=== PATIENT | male | born 1960 | race Caucasian/White ===

== ENCOUNTER 2022-06-16 14:50 | Emergency (ER) | payer OTHER ==
[2022-06-16] MEDS ORDERED: METOCLOPRAMIDE 10 MG/2mL INJ ONE (15:53)
[2022-06-16] MEDS ORDERED: NA CHLORIDE 0.9% 250 ML ONE (15:54)
[2022-06-16] MEDS ORDERED: DIPHENHYDRAMINE 50 MG/ML VIAL ONE (15:54)
[2022-06-16 16:05] LABS: Absolute Lymphocytes (CBC) 0.9 K/uL (0.7-4.9); Hematocrit 34.3 % (39.6-49.0); Lymphocytes % 19.2 % (15.3-44.8); MCV 94.2 fL (80-100); MPV 7.4 fL (7.6-11.3); RBC Red Blood Cell Count 3.65 M/uL (4.33-5.43)
[2022-06-16 16:29] LABS: Protime INR 1.15
[2022-06-16 16:45] LABS: Magnesium 2.2 mg/dL (1.8-2.4); Potassium 5.1 mmol/L (3.5-5.1); Troponin High Sensitivity 40.2 pg/mL (<58.9)
--- NOTE | 2022-06-16 16:46 | RAD REPORT ---
EXAM DESCRIPTION: CT - Head Brain Wo Cont - 06/16/2022 4:22 pm CLINICAL HISTORY: Headache, new or worsening COMPARISON: HEAD BRAIN W O CONTRAST dated 10/21/2013 TECHNIQUE: Axial 5 mm thick images of the head were obtained without IV contrast. All CT scans are performed using dose optimization technique as appropriate and may include automated exposure control or mA/KV adjustment according to patient size. FINDINGS: No intracranial hemorrhage, mass, edema or shift of mid-line structures. No acute infarcti on changes seen. No abnormal extra-axial fluid collections. Ventricles are normal. Intracranial findi ngs are similar to the 2013 comparison. Mastoid air cells and visualized portions of the paranasal sinuses are clear. No acute bony findings. IMPRESSION: Negative non-contrast CT head examination.
--- NOTE | 2022-06-16 17:22 | RAD REPORT ---
EXAM DESCRIPTION: RAD - Chest Single View - 06/16/2022 4:35 pm CLINICAL HISTORY: CHEST PAIN COMPARISON: None TECHNIQUE: AP portable chest image was obtained 06/16/2022 4:35 pm . FINDINGS: Lungs are clear. Heart and vasculature are normal. No measurable pleural effusion and no p neumothorax. No acute bony abnormality seen. No acute aortic findings suspected. IMPRESSION: No acute cardiopulmonary process.
--- NOTE | 2022-06-16 19:40 | ER ---
Nurse's Notes [facility] Name: Marcello Mcrae Jr Age: 61 yrs Sex: Male : 1960 Arrival Date: 06/16/2022 Time: 14:57 Bed 16 Private MD: Diagnosis: Chest pain, unspecified;Headache;End stage renal disease;Essential (primary) hypertension;Anemia in chronic kidney disease Presentation: 06/16 14:55 Chief complaint: EMS states: Patient called c/o chest pain bout 30 min prior to our jg9 arrival, he reported pain in his chest that radiates down his left arm and he is a dialysis patient (peritoneal). That was about all we could get from him initially, 12 lead showed cardiomegaly otherwise it was not remarkable, we gave 324 mg of aspirin, nitro 0.4 mg x 3, and 100 fentanyl and patient reported no change in his pain. Upon arriving here at the hospital patient reports that he has anxiety, his left him yesterday and this is around the time of year when his Mom and Dad passed. Coronavirus screen: Vaccine status: Patient reports receiving the 2nd dose of the covid vaccine. Ebola Screen: Patient negative for fever greater than or equal to 101.5 degrees Fahrenheit, and additional compatible Ebola Virus Disease symptoms Patient denies exposure to infectious person. Patient denies travel to an Ebola-affected area in the 21 days before illness onset. Initial Sepsis Screen: Does the patient meet any 2 criteria? No. Patient's initial sepsis screen is negative. Does the patient have a suspected source of infection? No. Patient's initial sepsis screen is negative. Risk Assessment: Do you want to hurt yourself or someone else? Patient reports no desire to harm self or others. Onset of symptoms is unknown. 14:55 Method Of Arrival: EMS: [facility] jg9 14:55 Acuity: RITO 3 jg9 Triage Assessment: 14:55 General: Appears in no apparent distress. Behavior is calm, cooperative. Pain: jg9 Complains of pain in chest Pain radiates to left arm Pain currently is 9 out of 10 on a pain scale. Historical: - Allergies: 15:13 No Known Allergies; jg9 - PMHx: 15:13 Anxiety; Hypertensive disorder; jg9 - Immunization history:: Adult Immunizations up to date. - Social history:: Smoking status: Patient reports the use of cigarette tobacco products, smokes one pack cigarettes per day. Screenin:14 Abuse screen: Denies threats or abuse. Denies injuries from another. Nutritional jg9 screening: No deficits noted. Tuberculosis screening: No symptoms or risk factors identified. Fall Risk None identified. Assessment: 15:00 Reassessment: Patient and/or family updated on plan of care and expected duration. Pain jg9 level reassessed. Patient is alert, oriented x 3, equal unlabored respirations, skin warm/dry/pink. 16:00 Reassessment: Patient and/or family updated on plan of care and expected duration. Pain jg9 level reassessed. 18:00 Reassessment: Patient and/or family updated on plan of care and expected duration. Pain jg9 level reassessed. Patient is alert, oriented x 3, equal unlabored respirations, skin warm/dry/pink. 19:00 Reassessment: Patient and/or family updated on plan of care and expected duration. Pain jg9 level reassessed. Patient states feeling better. Patient states symptoms have improved. Vital Signs: 14:55 BP 177 / 92; Pulse 72; Resp 13 S; Temp 98.8(O); Pulse Ox 100% on R/A; Weight 82.1 kg jg9 (R); Height 5 ft. 9 in. (175.26 cm) (R); Pain 9/10; 15:00 BP 179 / 97; Pulse 70; Resp 14 S; Pulse Ox 100% on R/A; Pain 7/10; jg9 16:00 BP 171 / 100; Pulse 71; Resp 11 S; Pulse Ox 100% on R/A; jg9 17:00 BP 172 / 108; Pulse 75; Resp 19 S; Pulse Ox 100% on R/A; Pain 2/10; jg9 18:09 BP 176 / 97; Pulse 68; Resp 10 S; Pulse Ox 98% on R/A; jg9 19:45 BP 184 / 97; Pulse 68; Resp 12; Pulse Ox 99% ; ja4 14:55 Body Mass Index 26.73 (82.10 kg, 175.26 cm) jg9 ED Course: 14:57 Patient arrived in ED. jd3 14:59 Dexter Jimenez DO is Attending Physician. ms3 15:03 Sonal Root, RN is Primary Nurse. jg9 15:03 Maintain EMS IV. Gauge \T\ site: 18 r ac. jg9 15:09 Triage completed. jg9 15:14 Patient has correct armband on for positive identification. Bed in low position. Call jg9 light in reach. 15:14 Arm band placed on left wrist. jg9 16:24 CT Head Brain wo Cont In Process Unspecified. EDMS 16:37 XRAY Chest (1 view) In Process Unspecified. EDMS 18:59 Attending Physician role handed off by Dexter Jimenez DO rn 18:59 Ab Osborne MD is Attending Physician. rn 20:05 IV discontinued, intact, bleeding controlled, No redness/swelling at site. Pressure ja4 dressing applied. Administered Medications: 15:52 Drug: Reglan (metoCLOPramide) 10 mg Route: IVP; Site: right antecubital; jg9 17:20 Follow up: Response: No adverse reaction jg9 15:52 Drug: Benadryl (diphenhydrAMINE) 25 mg Route: IVP; Site: right antecubital; jg9 17:20 Follow up: Response: No adverse reaction jg9 Outcome: 19:39 Discharge ordered by . rn 20:05 Discharged to home ambulatory. ja4 20:05 Condition: stable 20:05 Discharge instructions given to patient, Instructed on discharge instructions, follow up and referral plans. medication usage. 20:06 Patient left the ED. ja4 Signatures: Dispatcher [employer] EDMS Ab Osborne MD MD rn Davies, Jonathon, RN RN jd3 Dexter Jimenez DO DO ms3 Sonal Root, RN RN jg9 Myke Norton RN RN ja4 Corrections: (The following items were deleted from the chart) 17:26 17:00 BP 172 / 108; Pulse 75bpm; Resp 19bpm; Spontaneous; Pulse Ox 100% RA; jg9 jg9
--- NOTE | 2022-06-16 19:40 | EDPHYS ---
Physician Documentation [facility] Name: Marcello Mcrae Jr Age: 61 yrs Sex: Male : 1960 Arrival Date: 06/16/2022 Time: 14:57 Bed 16 Private MD: ED Physician Ab Osborne HPI: 06/16 15:44 This 61 yrs old Male presents to ER via EMS with complaints of Chest Pain/headache. ms3 15:44 61-year-old male with past medical history of hypertension, anxiety, end-stage renal ms3 diseaseon peritoneal dialysis presents for headache and chest pain that began 1 and half hours prior to arrival. Patient states his headache is rated 9/10 and his chest pain is a 6/10 described as pressure. Patient denies alleviating or inciting factors. Patient endorses nausea and shortness of breath. Patient denies vomiting. Patient denies alleviating or inciting factors.. Historical: - Allergies: 15:13 No Known Allergies; jg9 - PMHx: 15:13 Anxiety; Hypertensive disorder; jg9 - Immunization history:: Adult Immunizations up to date. - Social history:: Smoking status: Patient reports the use of cigarette tobacco products, smokes one pack cigarettes per day. ROS: 15:44 Constitutional: Negative for fever, and chills. Neck: Negative for injury, pain, and ms3 swelling. 15:44 MS/Extremity: Negative for injury and deformity, Skin: Negative for injury, rash, and discoloration. 15:44 Cardiovascular: Positive for chest pain. 15:44 Respiratory: Positive for shortness of breath. 15:44 Neuro: Positive for headache. 15:44 All other systems are negative. Exam: 15:08 ECG was reviewed by the Attending Physician. ms3 15:44 Constitutional: This is a well developed, well nourished patient who is awake, alert, ms3 and in no acute distress. Eyes: Pupils equal round and reactive to light, extra-ocular motions intact. Lids and lashes normal. Conjunctiva and sclera are non-icteric and not injected. Periorbital areas with no swelling, redness, or edema. Neck: Trachea midline, no cervical lymphadenopathy. Supple, full range of motion without nuchal rigidity, or vertebral point tenderness. No Meningismus. Chest/axilla: Normal chest wall appearance and motion. Nontender with no deformity. 15:44 Skin: Warm, dry with normal turgor. Normal color with no rashes, no lesions, and no evidence of cellulitis. MS/ Extremity: Pulses equal, no cyanosis. Neurovascular intact. Full, normal range of motion. Psych: Awake, alert, with orientation to person, place and time. Behavior, mood, and affect are within normal limits. 15:44 Cardiovascular: Rate: normal, Rhythm: regular, Pulses: no pulse deficits are appreciated, Heart sounds: murmur, systolic. 16:25 ECG was reviewed by the Attending Physician. ms3 Vital Signs: 14:55 BP 177 / 92; Pulse 72; Resp 13 S; Temp 98.8(O); Pulse Ox 100% on R/A; Weight 82.1 kg j9 (R); Height 5 ft. 9 in. (175.26 cm) (R); Pain 9/10; 15:00 BP 179 / 97; Pulse 70; Resp 14 S; Pulse Ox 100% on R/A; Pain 7/10; jg9 16:00 BP 171 / 100; Pulse 71; Resp 11 S; Pulse Ox 100% on R/A; jg9 17:00 BP 172 / 108; Pulse 75; Resp 19 S; Pulse Ox 100% on R/A; Pain 2/10; jg9 18:09 BP 176 / 97; Pulse 68; Resp 10 S; Pulse Ox 98% on R/A; jg9 19:45 BP 184 / 97; Pulse 68; Resp 12; Pulse Ox 99% ; ja4 14:55 Body Mass Index 26.73 (82.10 kg, 175.26 cm) 9 MDM: 15:38 Patient medically screened. ms3 15:44 Differential diagnosis: abnormal EKG, acute myocardial infarction, congestive heart ms3 failure. 17:57 HEART Score: History: Slightly Suspicious (0), ECG: Normal (0), Age: > 45 and < 65 ms3 years (1), Risk Factors: 1 or 2 risk factors (1), Troponin: < or = 1 x Normal Limit (0), Total Score = 2. Data reviewed: vital signs, nurses notes, lab test result(s), EKG, radiologic studies. Data interpreted: environmental monitoring technician: rate is 65 beats/min, rhythm is normal sinus rhythm, regular, with no ectopy, Interpretation: normal rate, normal rhythm. 19:37 ED course: Signed out to me by Dr Jimenez, plan was to dc home if repeat trop neg, which rn it is. Will dc home with return precautions. . 06/16 15:40 Order name: Basic Metabolic Panel; Complete Time: 17:10 ms3 06/16 15:40 Order name: CBC with Diff; Complete Time: 16:48 ms3 06/16 15:40 Order name: Magnesium; Complete Time: 17:10 ms3 06/16 15:40 Order name: NT PRO-BNP; Complete Time: 17:10 ms3 06/16 15:40 Order name: PT-INR; Complete Time: 16:48 ms3 06/16 15:40 Order name: Troponin HS; Complete Time: 17:10 ms3 06/16 15:40 Order name: XRAY Chest (1 view); Complete Time: 17:39 ms3 06/16 15:40 Order name: EKG; Complete Time: 15:41 ms3 06/16 15:40 Order name: Cardiac monitoring; Complete Time: 15:42 ms3 06/16 15:40 Order name: CT Head Brain wo Cont; Complete Time: 16:48 ms3 06/16 17:11 Order name: Troponin High Sensitivity: obtain at 1900; Complete Time: 19:37 ms3 06/16 15:40 Order name: EKG - Nurse/Tech; Complete Time: 15:42 ms3 06/16 15:40 Order name: IV Saline Lock; Complete Time: 15:42 ms3 06/16 15:40 Order name: Labs collected and sent; Complete Time: 17:20 ms3 06/16 15:40 Order name: O2 Sat Monitoring; Complete Time: 15:42 ms3 06/16 17:11 Order name: Repeat Cardiac Enzymes at: 1900 ms3 EC:08 Rate is 70 beats/min. Rhythm is regular. QRS [place] is Normal. TX interval is normal. ms3 Clinical impression: Normal ECG. Interpreted by me. Reviewed by me. 16:25 Rate is 66 beats/min. Rhythm is regular. QRS [place]rick is Normal. [place] interval is normal. QRS ms3 interval is normal. Clinical impression: Normal ECG. No change from previous ECG on June 16, 2022. Interpreted by me. Reviewed by me. Administered Medications: 15:52 Drug: Reglan (metoCLOPramide) 10 mg Route: IVP; Site: right antecubital; jg9 17:20 Follow up: Response: No adverse reaction jg9 15:52 Drug: Benadryl (diphenhydrAMINE) 25 mg Route: IVP; Site: right antecubital; jg9 17:20 Follow up: Response: No adverse reaction jg9 Disposition Summary: 06/16/22 19:39 Discharge Ordered Location: Home rn Problem: new rn Symptoms: are unchanged rn Condition: Stable rn Diagnosis - Chest pain, unspecified rn - Headache rn - End stage renal disease rn - Essential (primary) hypertension rn - Anemia in chronic kidney disease rn Followup: ms3 - With: Private Physician - When: 2 - 3 days - Reason: Recheck today's complaints, Re-evaluation by your physician Discharge Instructions: - Discharge Summary Sheet ms3 - Nonspecific Chest Pain, Adult ms3 - General Headache Without Cause ms3 - Hypertension, Adult ms3 Forms: - Medication Reconciliation Form rn - Thank You Letter rn - Antibiotic fern cutter - Prescription Opioid Use rn Signatures: Dispatcher [employer] EDMS Ab Osborne MD MD rn Sims, Marcus, DO DO ms3 Sonal Root RN RN jg9 Corrections: (The following items were deleted from the chart) 18:21 18:12 SARS-COV-2 Antigen Rapid+I.LAB.BRZ ordered. EDMS EDMS
[2022-06-16 22:10] VITALS: TEMP 98.8
[2022-06-16 22:39] VITALS: BP 184/97; O2SAT 99
--- NOTE | 2022-06-17 13:56 | EKG ---
Test Date: 2022-06-16 Test Time: 15:08:04 Snuff Box Finisher: JAMEY MEASUREMENT RESULTS: Intervals: Rate: 70 WV: 152 QRSD: 94 QT: 402 QTc: 434 [place]: P: 53 WV: 152 QRS: -16 T: 36 INTERPRETIVE STATEMENTS: Normal sinus rhythm Left atrial enlargement Borderline ECG Compared to ECG 10/21/2013 09:41:07 Sinus tachycardia no longer present Electronically Signed On 06-17-22 13:55:27 CDT by Peter Grover
--- NOTE | 2022-06-17 13:56 | EKG ---
Test Date: 2022-06-16 Test Time: 16:25:32 Primary Special Educator: JAMEY MEASUREMENT RESULTS: Intervals: Rate: 66 ME: 154 QRSD: 98 QT: 422 QTc: 442 [place]: P: 57 ME: 154 QRS: 15 T: 31 INTERPRETIVE STATEMENTS: Normal sinus rhythm Possible Left atrial enlargement Left ventricular hypertrophy Abnormal ECG Compared to ECG 06/16/2022 15:08:04 Left ventricular hypertrophy now present Electronically Signed On 06-17-22 13:55:21 CDT by Peter Grover
== END 2022-06-16 20:06 | disposition home or self-care (01) ==
LOC: ER 14:50
DX: R07.9 Chest pain, unspecified (principal); R51.9 Headache, unspecified; I12.0 Hypertensive chronic kidney disease with stage 5 chronic kidney disease or end stage renal disease; N18.6 End stage renal disease; D63.1 Anemia in chronic kidney disease; F17.210 Nicotine dependence, cigarettes, uncomplicated
CPT/HCPCS: 93005 ×2; 85025; 80048; 36415; 83735; 85610; 84484 ×2; 83880; 70450; 71045; 96375; 96374; 99284; J2765; J1200; J7050

== ENCOUNTER 2023-02-28 18:45 | Emergency (ER) | payer OTHER ==
[2023-02-28] MEDS ORDERED: HYDROMORPHONE HCL 1 MG/ML INJ ONE ×2 (19:02→21:32)
[2023-02-28] MEDS ORDERED: ONDANSETRON 4 MG/2 ML VIAL ONE ×2 (19:02→21:32)
[2023-02-28 19:06] LABS: Hematocrit 27.1 % (39.6-49.0); Lymphocytes % 9.8 % (15.3-44.8); MCV 90.9 fL (80-100); MPV 6.8 fL (7.6-11.3); RBC Red Blood Cell Count 2.98 M/uL (4.33-5.43)
[2023-02-28] MEDS ORDERED: NICOTINE 21 MG/PAT TD ONE (19:30)
[2023-02-28 19:38] LABS: Protime INR 1.15
[2023-02-28 19:41] LABS: Albumin 2.4 g/dL (3.4-5.0); Bilirubin Direct 0.1 mg/dL (0-0.2); Bilirubin Indirect, Calculated 0.3 mg/dL (0.2-0.8); Bilirubin Total 0.4 mg/dL (0.2-1.0); Potassium 4.6 mEq/L (3.5-5.1); Protein, Total 5.8 g/dL (6.4-8.2); Troponin High Sensitivity 50.5 pg/mL (<58.9)
--- NOTE | 2023-02-28 20:04 | RAD REPORT ---
[facility]15 [facility] CLINICAL HISTORY: CHEST PAIN COMPARISON: Chest Single View dated 06/16/2022 TECHNIQUE: Portable AP view of the chest. FINDINGS: New left basilar airspace opacity with layering small to moderate effusion. No pneumothora x or effusion. The cardiomediastinal contours are unremarkable. IMPRESSION: New left basilar airspace opacity with suspected small to moderate effusion.
--- NOTE | 2023-02-28 22:01 | RAD REPORT ---
EXAM DESCRIPTION: CT - Thorax Wo Con - 02/28/2023 9:21 pm CLINICAL HISTORY: CHEST PAIN COMPARISON: Chest Single View dated 02/28/2023 TECHNIQUE: Axial thin cut images of the chest were obtained without IV contrast. Multiplanar reforma ts were generated and reviewed. All CT scans are performed using dose optimization technique as appropriate and may include automated exposure control or mA/KV adjustment according to patient size. FINDINGS: No mass or infiltrate in the lung parenchyma. Small volume layering left pleural effusion with underlying atelectasis. No pneumothorax. Moderate cardiomegaly. Mild pericardial effusion. Ectasia of the ascending thoracic aorta, measuring 4.3 centimeter in caliber. No hypoattenuating mural hematoma. No abnormal mediastinal or hilar masses or lymphadenopathy seen. No significant pulmonary artery find ings. Assessment is limited in the absence of IV contrast. No chest wall mass or abnormal axillary lymphadenopathy. Evaluation of the solid abdominal structures reveals no suspicious findings. IMPRESSION: Small volume layering pleural effusion, with underlying atelectasis. Moderate cardiomegaly. Mild pericardial effusion. Mild aneurysmal dilation of the ascending thoracic aorta, measuring 4.3 centimeter in caliber.
[2023-02-28] MEDS ORDERED: Meropenem 1000 MG/VIAL IV ONE (22:05)
[2023-02-28] MEDS ORDERED: NA CHLORIDE 0.9% 100 ML ONE (22:05)
[2023-02-28 22:21] LABS: Specific Gravity 1.011 (1.005-1.030); Urine Bacteria <20 /HPF (<20); Urine Bilirubin NEGATIVE (Negative); Urine Blood Trace (Negative); Urine Clarity Clear (Clear); Urine Color Light-Yellow (Yellow); Urine Glucose 2+ (Negative); Urine Protein 1+ (Negative); Urine RBC <5 /HPF (None Seen); Urine Urobilinogen Normal (Normal)
--- NOTE | 2023-02-28 22:25 | ER ---
Nurse's Notes [facility] Name: Marcello Mcrae Jr Age: 62 yrs Sex: Male : 1960 Arrival Date: 02/28/2023 Time: 18:45 Bed 15 Private MD: Diagnosis: Pleural effusion, not elsewhere classified;Left pleural effusion, noncardiac chest pain, pleurisy. Dysuria. End-stage renal disease on peritoneal dialysis Presentation: 02/28 18:46 Chief complaint: Patient states: had heart surgery a week ago , had a iw pericardiocentesis at [facility] . c/o chest pain X 2 days, also has pain when he urinates. 18:47 Coronavirus screen: At this time, the client does not indicate any symptoms associated iw with coronavirus-19. Ebola Screen: Patient negative for fever greater than or equal to 101.5 degrees Fahrenheit, and additional compatible Ebola Virus Disease symptoms Patient denies exposure to infectious person. Patient denies travel to an Ebola-affected area in the 21 days before illness onset. No symptoms or risks identified at this time. Risk Assessment: Do you want to hurt yourself or someone else? Patient reports no desire to harm self or others. 18:47 Acuity: RITO 2 iw 18:47 Method Of Arrival: Wheelchair iw 18:51 Initial Sepsis Screen: Does the patient meet any 2 criteria? No. Patient's initial iw sepsis screen is negative. Does the patient have a suspected source of infection? No. Patient's initial sepsis screen is negative. Onset of symptoms was February 26, 2023. Historical: - Allergies: 19:02 Codeine; ld1 - PMHx: 18:52 Anxiety; Hypertensive disorder; iw - Immunization history:: Adult Immunizations up to date. - Social history:: Smoking status: Patient denies any tobacco usage or history of. Patient/guardian denies using alcohol. Screenin:00 [facility] ED Fall Risk Assessment (Adult) History of falling in the last 3 months, ld1 including since admission No falls in past 3 months (0 pts). Abuse screen: Denies threats or abuse. Denies injuries from another. Nutritional screening: No deficits noted. Tuberculosis screening: No symptoms or risk factors identified. Assessment: 19:00 General: Appears in no apparent distress. uncomfortable, Behavior is anxious, crying, ld1 fussy. Pain: Complains of pain in chest Pain does not radiate. Pain currently is 9 out of 10 on a pain scale. Quality of pain is described as heavy, pressure, throbbing, Pain began 30 min ago. Neuro: Level of Consciousness is awake, alert, obeys commands, Oriented to person, place, time, situation. Cardiovascular: Capillary refill < 3 seconds Patient's skin is warm and dry. Rhythm is sinus rhythm. Respiratory: Airway is patent Respiratory effort is even, labored. GI: Abdomen is round distended, Catheter to ABD for peritoneal dialysis. : No signs and/or symptoms were reported regarding the genitourinary system. EENT: No signs and/or symptoms were reported regarding the EENT system. Derm: No signs and/or symptoms reported regarding the dermatologic system. Musculoskeletal: No signs and/or symptoms reported regarding the musculoskeletal system. 21:15 Reassessment: pt complaining of chest pain that is 8/10. ERP notified. New orders at [facility] this time. 21:35 Neuro: Level of Consciousness is awake, alert, obeys commands, Oriented to person, mb9 place, time, situation. Cardiovascular: Rhythm is regular. Respiratory: Airway is patent Respiratory effort is even, unlabored, Respiratory pattern is regular, symmetrical. 22:30 Reassessment: Patient and/or family updated on plan of care and expected duration. Pain mb9 level reassessed. Patient is alert, oriented x 3, equal unlabored respirations, skin warm/dry/pink. Patient states feeling better. Patient states symptoms have improved. 23:21 Reassessment: ERP notified of pts BP, 189/106. New orders at this time. mb9 03/01 00:12 Reassessment: Report given to transferring nurse NIDA Burnette. mb9 00:17 Reassessment: Assumed care of pt from NIDA Wu until pt is transferred. vc1 00:20 Reassessment: Patient and/or family updated on plan of care and expected duration. Pain vc1 level reassessed. Patient is alert, oriented x 3, equal unlabored respirations, skin warm/dry/pink. 00:35 Reassessment: pt ambulated to bathroom. vc1 00:45 Reassessment: Pt request pain medication before transfer. vc1 Vital Signs: 05/23 18:51 Temp 99.3(O); iw 19:00 BP 177 / 150; Pulse 92; Resp 28; Pulse Ox 99% on R/A; ld1 19:27 BP 140 / 83; Pulse 92; Resp 18; Pulse Ox 96% on R/A; mb9 19:29 Weight 78.47 kg; Height 5 ft. 99 in. ; mb9 21:35 BP 152 / 80; Pulse 89; Resp 18; Pulse Ox 98% on R/A; mb9 22:45 BP 174 / 88; Pulse 78; Resp 16; Pulse Ox 98% on R/A; mb9 23:21 BP 189 / 106; Pulse 85; Resp 20; Pulse Ox 100% ; mb9 23:45 BP 181 / 97; Pulse 89; Resp 16; Pulse Ox 100% on R/A; mb9 23:58 BP 169 / 92; Pulse 86; Resp 16; Pulse Ox 100% on R/A; mb9 19:29 Body Mass Index 4.81 (78.47 kg, 403.86 cm) 9 ED Course: 18:46 Patient arrived in ED. mr 18:47 Triage completed. iw 18:47 Laurie Jimenez, RN is Primary Nurse. ld1 18:48 Nico Reilly MD is Attending Physician. sp3 18:52 Arm band placed on. iw 19:00 Patient has correct armband on for positive identification. Placed in gown. Bed in low ld1 position. Call light in reach. Side rails up X2. nurse monitoring on. Pulse ox on. NIBP on. Door closed. Noise minimized. Warm blanket given. 19:00 No provider procedures requiring assistance completed. Patient maintains SpO2 ld1 saturation greater than 95% on room air. 19:01 EKG done, by ED staff, reviewed by Nico Reilly MD. Inserted saline lock: 20 gauge in mb9 right forearm, using aseptic technique. 19:05 Primary Nurse role handed off by Laurie Jimenez RN mb9 19:05 Venecia Pennington RN is Primary Nurse. mb9 19:17 XRAY Chest (1 view) In Process Unspecified. EDMS 20:29 Attending Physician role handed off by Nico Reilly MD sp4 20:29 Ean Vila MD is Attending Physician. sp4 21:21 Thorax Wo Con In Process Unspecified. EDMS 22:08 Urinalysis W/Microscopic Sent. mb9 23:22 SARS RAPID Sent. mb9 03/01 00:12 Patient transferred, IV remains in place. mb9 Administered Medications: 02/28 18:59 Drug: HYDROmorphone IVP 1 mg Route: IVP; Site: right forearm; ld1 19:04 Follow up: Response: No adverse reaction mb9 19:00 Drug: Ondansetron IVP 4 mg Route: IVP; Site: right forearm; ld1 19:04 Follow up: Response: No adverse reaction mb9 19:27 Drug: Nicotine Transdermal Patch 21 mg/24 hr 1 patches {Note: right upper arm.} Route: mb9 Transdermal; Site: affected area; 21:30 Drug: Ondansetron IVP 4 mg Route: IVP; Site: right forearm; mb9 23:22 Follow up: Response: No adverse reaction mb9 21:33 Drug: HYDROmorphone IVP 1 mg Route: IVP; Site: right forearm; mb9 23:22 Follow up: Response: No adverse reaction mb9 22:08 Drug: Meropenem IV 1 grams Route: IV; Rate: calculated rate; Site: right forearm; mb9 23:22 Follow up: Response: No adverse reaction; IV Status: Completed infusion mb9 23:22 Drug: hydrALAZINE IVP 10 mg Route: IVP; Site: right forearm; mb9 23:33 Follow up: Response: No adverse reaction mb9 23:22 Drug: Metoprolol PO 50 mg Route: PO; mb9 23:33 Follow up: Response: No adverse reaction mb9 03/01 00:49 Drug: HYDROmorphone IVP 0.5 mg Route: IVP; Site: right antecubital; vc1 00:49 Follow up: Response: administered at transfer vc1 Medication: 02/28 19:00 VIS not applicable for this client. ld1 Outcome: 22:25 ER care complete, transfer ordered by MD. osorio 03/01 00:12 Transferred to [facility], Transfer form completed. mb9 Condition: stable Instructed on the need for transfer. 00:56 Patient left the ED. vc1 Signatures: Dispatcher [employer] Venecia Shetty Irene, RN Laurie Rowan, RN RN ld1 Nico Reilly MD MD sp3 Charlette Thompson, RN RN vc1 Gorge, Venecia Deshpande, RN RN mb9 Ean Vila MD MD sp4 Corrections: (The following items were deleted from the chart) 02/28 18:52 18:46 Chief complaint: Patient states: had heart surgery a week ago , had a iw pericardiocentesis at [facility]
--- NOTE | 2023-02-28 22:26 | EDPHYS ---
Physician Documentation [facility] Name: Marcello Mcrae Jr Age: 62 yrs Sex: Male : 1960 Arrival Date: 02/28/2023 Time: 18:45 Bed 15 Private MD: ED Physician Ean Vila HPI: 02/28 19:04 This 62 yrs old Male presents to ER via Wheelchair with complaints of Chest Pain. sp3 19:04 This 62 yrs old Male presents to ER via Wheelchair with complaints of Chest Pain. sp3 19:04 63-year-old male with history of hypertension, end-stage renal disease on peritoneal sp3 dialysis and anxiety with recent discharge from [facility] for a chest tube on the left lung to drain "fluid" and patient also states that he had a pericardial effusion that was drained with a needle. He was discharged and went home on Monday approximately 4 days ago and over the last 2 days he has had recurrent chest pain which today escalated to his entire chest extending into his back. Denies any pain into his jaw or left arm. Denies any syncope, shortness of breath, abdominal pain, nausea, vomiting, diarrhea, fever, cough, or any other signs or symptoms on review of systems at this time. He does not wish to seek any continuing care at [facility].. Historical: - Allergies: 19:02 Codeine; ld1 - PMHx: 18:52 Anxiety; Hypertensive disorder; iw - Immunization history:: Adult Immunizations up to date. - Social history:: Smoking status: Patient denies any tobacco usage or history of. Patient/guardian denies using alcohol. ROS: 19:08 Constitutional: Negative for fever, chills, and weight loss, Eyes: Negative for injury, sp3 pain, redness, and discharge, Neck: Negative for injury, pain, and swelling, Respiratory: Negative for shortness of breath, cough, wheezing, and pleuritic chest pain, Abdomen/GI: Negative for abdominal pain, nausea, vomiting, diarrhea, and constipation, Back: Negative for injury and pain, MS/Extremity: Negative for injury and deformity, Skin: Negative for injury, rash, and discoloration, Neuro: Negative for headache, weakness, numbness, tingling, and seizure, Psych: Negative for depression, anxiety, suicide ideation, homicidal ideation, and hallucinations, Allergy/Immunology: Negative for hives, rash, and allergies, Endocrine: Negative for neck swelling, polydipsia, polyuria, polyphagia, and marked weight changes, Hematologic/Lymphatic: Negative for swollen nodes, abnormal bleeding, and unusual bruising. 19:08 All other systems are negative. Exam: 19:09 Constitutional: This is a well developed, well nourished patient who is awake, alert, sp3 and in no acute distress. Head/Face: Normocephalic, atraumatic. Eyes: Pupils equal round and reactive to light, extra-ocular motions intact. Lids and lashes normal. Conjunctiva and sclera are non-icteric and not injected. Cornea within normal limits. Periorbital areas with no swelling, redness, or edema. ENT: Nares patent. No nasal discharge, no septal abnormalities noted. External auditory canals are clear. Oropharynx with no redness, swelling, or masses, exudates, or evidence of obstruction, uvula midline. Mucous membranes moist. Neck: Trachea midline, no thyromegaly or masses palpated, and no cervical lymphadenopathy. Supple, full range of motion without nuchal rigidity, or vertebral point tenderness. No Meningismus. Chest/axilla: Normal chest wall appearance and motion. Nontender with no deformity. No lesions are appreciated. Cardiovascular: Regular rate and rhythm with a normal S1 and S2. No gallops, murmurs, or rubs. Normal PMI, no JVD. No pulse deficits. Respiratory: Lungs have equal breath sounds bilaterally, clear to auscultation and percussion. No rales, rhonchi or wheezes noted. No increased work of breathing, no retractions or nasal flaring. Abdomen/GI: Soft, non-tender, with normal bowel sounds. No distension or tympany. No guarding or rebound. No evidence of tenderness throughout. Skin: Warm, dry with normal turgor. Normal color with no rashes, no lesions, and no evidence of cellulitis. 19:09 Chest/axilla: Left midclavicular line shows prior chest tube site with sutures in place.. 19:09 Abdomen/GI: Peritoneal dialysis drain in place without signs of infection.. 19:12 ECG was reviewed by the Attending Physician. See ED course and MDM for EKG sp3 interpretation 20:29 Repeat EKG at 200202/28/2023 reveals normal sinus rhythm with a rate of 86, left sp4 atrial enlargement, no ST elevation, inverted T waves leads V5 V6 inverted T waves in leads II, III, aVF no sign of STEMI Vital Signs: 18:51 Temp 99.3(O); iw 19:00 BP 177 / 150; Pulse 92; Resp 28; Pulse Ox 99% on R/A; ld1 19:27 BP 140 / 83; Pulse 92; Resp 18; Pulse Ox 96% on R/A; mb9 19:29 Weight 78.47 kg; Height 5 ft. 99 in. ; mb9 21:35 BP 152 / 80; Pulse 89; Resp 18; Pulse Ox 98% on R/A; mb9 22:45 BP 174 / 88; Pulse 78; Resp 16; Pulse Ox 98% on R/A; mb9 23:21 BP 189 / 106; Pulse 85; Resp 20; Pulse Ox 100% ; mb9 23:45 BP 181 / 97; Pulse 89; Resp 16; Pulse Ox 100% on R/A; mb9 23:58 BP 169 / 92; Pulse 86; Resp 16; Pulse Ox 100% on R/A; mb9 19:29 Body Mass Index 4.81 (78.47 kg, 403.86 cm) mb9 MDM: 18:56 Patient medically screened. sp3 19:09 Data reviewed: vital signs, nurses notes, old medical records, lab test result(s), EKG, sp3 radiologic studies. ED course: 62-year-old male with extensive cardiac history and recent pericardial effusion and left pleural effusion presents for recurrent chest pain. Chest x-ray demonstrates small left pleural effusion and no pneumothorax. Cardiac silhouette is enlarged. EKG demonstrates normal sinus rhythm with normal intervals rate of 93 with a normal axis, normal QRS nonspecific diffuse ST/T changes with inverted T waves in leads II and V5 V6. Old EKG from 06/16/2022 demonstrates similar pattern. There are electrical alternans and variability which could be from patient shaking versus true electrical alternans. We will repeat EKG once patient is more calm. Vital signs are normal and stable. CT scan of the chest, laboratory values are pending. Patient received Dilaudid 1 mg and Zofran 4 mg for symptomatic treatment. Disposition likely admission once all data is acquired patient is reevaluated. Patient will likely be signed out to nighttime physician Dr. Brantley. 21:56 Differential diagnosis: acute pericarditis, anxiety, chest wall pain, cholecystitis, sp4 pericarditis, pleurisy, pneumonia, pneumothorax. ED course: Patient presents with worsening left-sided chest pain associated with the recent infected pleural effusion. Patient states that 4 days ago he was discharged from [facility] where he underwent a left pleural effusion drainage and it was determined that it was infected pleural effusion. At this time patient has moderate to severe pain that is manageable with IV Dilaudid. Patient is a dialysis patient he undergoes nightly peritoneal dialysis at home. Patient has peritoneal dialysis catheter left lower abdominal quadrant. Patient still has postoperative incision from the left-sided chest tube that was done at [facility]. . 21:56 ED course: Patient's labs today revealed elevated creatinine of 11 consistent with sp4 end-stage renal disease being on peritoneal dialysis. CBC revealed normal WBCs, hemoglobin 8.8, platelets 473. D-dimer exceedingly high 20,000. There is also elevated BNP 57,000 elevated PT 12.7 troponin is negative. Chest x-ray revealed new left basilar airspace opacity with layering secondary to a moderate left pleural effusion, no pneumothorax, normal cardiomediastinal silhouette. CT chest without IV contrast was done and it has confirmed loculated pleural effusion left posterior pleural cavity. This hospital has no capacity for accomplishing peritoneal dialysis. Patient will be started on IV meropenem. He will be staffed with [facility] for transfer for evaluation for recurrent left pleural effusion possibly loculated infected pleural effusion, and also for management of end-stage renal disease on peritoneal dialysis. 22:22 ED course: CT chest revealed small volume layering pleural effusion with underlying sp4 atelectasis on the left side. Moderate cardiomegaly also and mild pericardial effusion. Mild aneurysmal dilatation of the ascending aorta measuring 4.3 cm in caliber. No hypoattenuating mural hematoma. . 02/28 18:49 Order name: Basic Metabolic Panel; Complete Time: 19:41 sp3 02/28 18:49 Order name: CBC with Diff; Complete Time: 19:38 sp3 02/28 18:49 Order name: D-Dimer; Complete Time: 19:41 sp3 02/28 18:49 Order name: LFT's; Complete Time: 19:41 sp3 02/28 18:49 Order name: Magnesium; Complete Time: 19:41 sp3 02/28 18:49 Order name: NT PRO-BNP; Complete Time: 19:41 sp3 02/28 18:49 Order name: PT-INR; Complete Time: 19:41 sp3 02/28 18:49 Order name: Troponin HS; Complete Time: 19:41 3 02/28 21:54 Order name: Urinalysis W/Microscopic; Complete Time: 22:48 sp4 02/28 23:09 Order name: SARS RAPID sp4 02/28 18:49 Order name: XRAY Chest (1 view); Complete Time: 20:51 sp3 02/28 21:21 Order name: Thorax Wo Con; Complete Time: 22:15 EDMS 02/28 18:49 Order name: EKG; Complete Time: 18:49 3 02/28 18:49 Order name: Cardiac monitoring; Complete Time: 19:00 3 02/28 18:49 Order name: EKG - Nurse/Tech; Complete Time: 19:00 3 02/28 18:49 Order name: IV Saline Lock; Complete Time: 18:59 sp3 02/28 18:49 Order name: Labs collected and sent; Complete Time: 19:00 3 02/28 18:49 Order name: O2 Per Protocol; Complete Time: 18:59 3 02/28 18:49 Order name: O2 Sat Monitoring; Complete Time: 18:59 3 02/28 19:03 Order name: NPO; Complete Time: 19:03 3 02/28 21:13 Order name: EKG - Nurse/Tech; Complete Time: 21:27 sp4 Administered Medications: 18:59 Drug: HYDROmorphone IVP 1 mg Route: IVP; Site: right forearm; ld1 19:04 Follow up: Response: No adverse reaction mb9 19:00 Drug: Ondansetron IVP 4 mg Route: IVP; Site: right forearm; ld1 19:04 Follow up: Response: No adverse reaction mb9 19:27 Drug: Nicotine Transdermal Patch 21 mg/24 hr 1 patches {Note: right upper arm.} Route: mb9 Transdermal; Site: affected area; 21:30 Drug: Ondansetron IVP 4 mg Route: IVP; Site: right forearm; mb9 23:22 Follow up: Response: No adverse reaction mb9 21:33 Drug: HYDROmorphone IVP 1 mg Route: IVP; Site: right forearm; mb9 23:22 Follow up: Response: No adverse reaction mb9 22:08 Drug: Meropenem IV 1 grams Route: IV; Rate: calculated rate; Site: right forearm; mb9 23:22 Follow up: Response: No adverse reaction; IV Status: Completed infusion mb9 23:22 Drug: hydrALAZINE IVP 10 mg Route: IVP; Site: right forearm; mb9 23:33 Follow up: Response: No adverse reaction mb9 23:22 Drug: Metoprolol PO 50 mg Route: PO; mb9 23:33 Follow up: Response: No adverse reaction mb9 03/01 00:49 Drug: HYDROmorphone IVP 0.5 mg Route: IVP; Site: right antecubital; vc1 00:49 Follow up: Response: administered at transfer vc1 Disposition Summary: 02/28/23 22:25 Transfer Ordered Transfer Location: [facility] sp4 Reason: Higher level of care sp4 Condition: Stable sp4 Problem: new sp4 Symptoms: are unchanged sp4 Accepting Physician: [facility] Attending (03/01/23 00:56) vc1 Diagnosis - Pleural effusion, not elsewhere classified sp4 - Left pleural effusion, noncardiac chest pain, pleurisy. Dysuria. End-stage renal sp4 disease on peritoneal dialysis Forms: - Medication Reconciliation Form sp4 - SBAR form sp4 Signatures: Dispatcher [employer] Buffy Ballesteros RN RN iw Davion Lewis, LEVERMAN-C LEVERMAN-Cla1 Laurie Jimenez RN RN ld1 Nico Reilly MD MD sp3 Charlette Thompson RN RN vc1 Venecia Pennington RN RN mb9 Ean Vila MD MD sp4 Corrections: (The following items were deleted from the chart) 02/28 19:08 19:04 63-year-old male with history of hypertension and anxiety with recent discharge sp3 from [facility] for a chest tube on the left lung to drain "fluid" and patient also states that he had a pericardial. sp3 19:09 19:04 63-year-old male with history of hypertension and anxiety with recent discharge sp3 from [facility] for a chest tube on the left lung to drain "fluid" and patient also states that he had a pericardial effusion that was drained with a needle. He was discharged and went home on Monday approximately 4 days ago and over the last 2 days he has had recurrent chest pain which today escalated to his entire chest extending into his back. Denies any pain into his jaw or left arm. Denies any syncope, shortness of breath, abdominal pain, nausea, vomiting, diarrhea, fever, cough, or any other signs or symptoms on review of systems at this time. He does not wish to seek any continuing care at [facility].. sp3 21:21 19:03 Thorax W/ Con+CT.RAD.BRZ ordered. EDMS EDMS 03/01 00:56 02/28 22:25 Silvano Attending sp4 vc1
[2023-02-28] MEDS ORDERED: HYDRALAZINE HCL 20 MG/ML VIAL ONE (23:24)
[2023-02-28] MEDS ORDERED: METOPROLOL TAR 25 MG TAB ONE (23:24)
[2023-03-01 00:11] LABS: SARS-CoV-2 Antigen Rapid Res Negative (Negative)
[2023-03-01] MEDS ORDERED: HYDROMORPHONE HCL 0.5 MG/0.5 ML INJ ONE (00:53)
[2023-03-01 02:04] VITALS: TEMP 99.3
[2023-03-01 02:24] VITALS: O2SAT 100
[2023-03-01 02:27] VITALS: BP 169/92
--- NOTE | 2023-03-01 04:55 | EKG ---
Test Date: 2023-02-28 Test Time: 18:52:10 Hogshead Builder: Gabby GONZALEZ MEASUREMENT RESULTS: Intervals: Rate: 93 CT: 140 QRSD: 98 QT: 370 QTc: 460 [place]: P: 51 CT: 140 QRS: 27 T: 232 INTERPRETIVE STATEMENTS: Normal sinus rhythm Left atrial enlargement Left ventricular hypertrophy with repolarization abnormality Abnormal ECG Compared to ECG 06/16/2022 16:25:32 Early repolarization now present Electronically Signed On 03-01-23 04:53:40 CDT by Nando Byrd
--- NOTE | 2023-03-01 13:38 | EKG ---
Test Date: 2023-02-28 Test Time: 20:03:07 Director Of Respiratory Therapy: MB MEASUREMENT RESULTS: Intervals: Rate: 86 UT: 146 QRSD: 100 QT: 382 QTc: 457 [place]: P: 58 UT: 146 QRS: 21 T: 227 INTERPRETIVE STATEMENTS: Normal sinus rhythm Left atrial enlargement ST & T wave abnormality, consider inferolateral ischemia Abnormal ECG Compared to ECG 02/28/2023 18:52:10 ST (T wave) deviation now present Possible ischemia now present Left ventricular hypertrophy no longer present Early repolarization no longer present Electronically Signed On 03-01-23 13:37:38 CDT by Peter Grover
== END 2023-03-01 00:56 | disposition short-term general hospital (02) ==
LOC: ER 18:45
DX: J90 Pleural effusion, not elsewhere classified (principal); R30.0 Dysuria; I12.0 Hypertensive chronic kidney disease with stage 5 chronic kidney disease or end stage renal disease; N18.6 End stage renal disease; F41.9 Anxiety disorder, unspecified; Z99.2 Dependence on renal dialysis; Z88.5 Allergy status to narcotic agent; Z20.822 Contact with and (suspected) exposure to COVID-19
CPT/HCPCS: 93005 ×2; 85025; 81001; 80048; 36415; 83735; 85610; 85379; 80076; 84484; 83880; 71250; 71045; 87811; J0360; J2185; J1170 ×3; J2405 ×2

== ENCOUNTER 2023-07-15 21:24 | Emergency (ER) | payer OTHER ==
[2023-07-15 22:06] LABS: Absolute Lymphocytes (CBC) 1.1 K/uL (0.7-4.9); Hematocrit 26.8 % (39.6-49.0); Lymphocytes % 13.8 % (15.3-44.8); MCV 97.3 fL (80-100); MPV 7.4 fL (7.6-11.3); Platelets 193 thou/uL (152-406); RBC Red Blood Cell Count 2.75 M/uL (4.33-5.43)
[2023-07-15 22:24] LABS: Protime INR 1.2
--- NOTE | 2023-07-15 22:32 | RAD REPORT ---
EXAM DESCRIPTION: RAD - Chest Single View - 07/15/2023 10:25 pm CLINICAL HISTORY: chest pain Chest pain. COMPARISON: Chest Single View dated 02/28/2023; Chest Single View dated 06/16/2022 FINDINGS: Portable technique limits examination quality. The lungs are grossly clear. The heart is moderately enlarged in size. No displaced fractures. IMPRESSION: No acute intrathoracic process suspected.
[2023-07-15 22:37] LABS: Albumin 2.3 g/dL (3.4-5.0); Bilirubin Total 0.4 mg/dL (0.2-1.0); Protein, Total 5.8 g/dL (6.4-8.2)
[2023-07-15 22:42] LABS: Potassium 6.7 mEq/L (3.5-5.1); Troponin High Sensitivity 149.2 pg/mL (<58.9)
[2023-07-15] MEDS ORDERED: FUROSEMIDE 100 MG/10 ML VIAL IV ONE (23:31)
[2023-07-15] MEDS ORDERED: ALBUTEROL 2.5 MG/3 ML NEB SOL ONE (23:31)
[2023-07-15] MEDS ORDERED: SODIUM BICARB 50 MEQ/50ML VIAL ONE (23:32)
[2023-07-15] MEDS ORDERED: SOD POLYSTYREN SUL 15 GM/60 ML UCUP ONE (23:32)
[2023-07-15] MEDS ORDERED: CALCIUM GLUCONATE 1 GM IVPB 1 GM/50 ML BAG IV ONE (23:32)
[2023-07-15] MEDS ORDERED: INSULIN -REGULAR HUMAN 50 UNIT/0.5 ML ML ONE (23:32)
[2023-07-15] MEDS ORDERED: D10W 250 ML IV ONE (23:33)
--- NOTE | 2023-07-15 23:33 | EDPHYS ---
Physician Documentation [facility] Name: Marcello Mcrae Jr Age: 62 yrs Sex: Male : 1960 Arrival Date: 07/15/2023 Time: 21:24 Bed 2 Private MD: ED Physician Gabrielle Hinton HPI: 07/15 21:53 This 62 yrs old Male presents to ER via EMS with complaints of chest pain. 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 Denies nausea/vomiting or diaphoresis. Reports had HI 2-3 weeks ago and was flown to [facility] in [place] but does not know what was done. Unknown if he is on blood thinners. Family reported concern for narcotic addiction while he was in the hospital and requests he not receive any narcotics in the ER today and patient has repeatedly asked EMS and staff for Dilaudid since arrival. Reports he has taken all of his medications today and received 324 of ASA with EMS.. Historical: - Allergies: 21:32 Codeine; rv - PMHx: 21:32 Anxiety; Hypertensive disorder; Myocardial infarction; rv 22:42 peritoneal dialysis; kl - Immunization history:: Adult Immunizations up to date. - Social history:: Smoking status: unknown. ROS: 21:53 Constitutional: Negative for fever, chills, and weight loss, Eyes: Negative for injury, sd2 pain, redness, and discharge, 21:53 Abdomen/GI: Negative for abdominal pain, nausea, vomiting, diarrhea. MS/Extremity: Negative for injury and deformity, Skin: Negative for injury, rash, and discoloration, Neuro: Negative for headache, Positive for numbness and tingling. 21:53 Cardiovascular: Positive for chest pain, edema, Negative for palpitations, 21:53 Respiratory: Positive for dyspnea on exertion, shortness of breath, Negative for wheezing, Exam: 21:53 Constitutional: This is a well developed, well nourished patient who is awake, alert, sd2 and in no acute distress. Head/Face: Normocephalic, atraumatic. Eyes: EOMI, normal conjunctiva bilaterally Chest/axilla: Normal chest wall appearance and motion. Nontender with no deformity. Cardiovascular: Regular rate and rhythm with a normal S1 and S2. No gallops, murmurs, or rubs. 2+ distal pulses. Respiratory: Lungs have equal breath sounds bilaterally, clear to auscultation and percussion. No rales, rhonchi or wheezes noted. No increased work of breathing, no retractions or nasal flaring. Abdomen/GI: Soft, non-tender, with normal bowel sounds. No guarding or rebound. No evidence of tenderness throughout. Skin: Warm, dry with normal turgor. Normal color with no rashes, no lesions, and no evidence of cellulitis. MS/ Extremity: Pulses equal, no cyanosis. Neurovascular intact. Full, normal range of motion. 3+ pitting edema noted to BLEs, symmetric. Psych: Awake, alert, with orientation to person, place and time. Behavior, mood, and affect are within normal limits. 21:58 ECG was reviewed by the Attending Physician. NSR, rate 78, no STEMI criteria or sd2 significant ST-T wave changes when compared to prior EKGs from 03/01/23, LVH with repolarization abnormality present Vital Signs: 21:30 BP 211 / 104; Pulse 106; Resp 20; Temp 98; Pulse Ox 96% on 2 lpm NC; Weight 85.73 kg; rv Height 5 ft. 9 in. ; 22:00 BP 194 / 108; Pulse 77; Resp 18; Pulse Ox 98% on 2 lpm NC; rv 22:27 BP 180 / 97; Pulse 76; Resp 16; Pulse Ox 99% ; rv 07/16 00:22 BP 170 / 79; Pulse 87; Resp 18; Temp 98; Pulse Ox 96% on R/A; rv 07/15 21:30 Body Mass Index 27.91 (85.73 kg, 175.26 cm) rv MDM: 07/15 21:31 Patient medically screened. sd2 21:53 Differential Diagnosis Differential diagnosis includes but is not limited to: ACS, sd2 DVT/PE, pneumothorax, dissection, musculoskeletal, anxiety, anemia, electrolyte abnormality, pneumonia, CHF, COPD among others. 21:57 Data reviewed: vital signs, nurses notes, EMS record, lab test result(s), EKG, sd2 radiologic studies. I considered the following discharge prescriptions or medication management in the emergency department Medications were administered in the Emergency Department. See MAR. Historians other than the Patient: EMS: provides initial report. Care significantly affected by the following chronic conditions: Hypertension, CAD. Care significantly affected by the following Social Determinants of Health:. 23:14 Counseling: I had a detailed discussion with the patient and/or guardian regarding the sd2 historical points, exam findings, and any diagnostic results supporting the discharge/admit diagnosis, the presence of at least one elevated blood pressure reading (>120/80) during this emergency department visit, lab results, radiology results, the need to transfer to another facility, for higher level of care, [facility] does not immediately have the required specialist. 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 Elevated troponin. Unknown prior troponin levels since HI. Hyperkalemia also present. Pt normally does peritoneal dialysis at night and has not yet done so. CP resolved with 2 NTG. Pt treated for hyperkalemia. Initially not agreeable to admission or transfer but is now agreeable after speaking with family. Due to our facility not having cardiology and no capacity for peritoneal dialysis, will need to transfer back to [facility] where patient was admitted 2 weeks ago for HI.. 07/15 21:49 Order name: PT-INR; Complete Time: 22:33 sd2 07/15 21:49 Order name: Ptt, Activated; Complete Time: 22:33 sd2 07/15 22:03 Order name: Comprehensive Metabolic Panel; Complete Time: 22:59 EDMS 07/15 22:03 Order name: Troponin High Sensitivity; Complete Time: 22:59 EDMS 07/15 22:03 Order name: NT PRO-BNP; Complete Time: 22:59 EDMS 07/15 22:03 Order name: CBC with Automated Diff; Complete Time: 22:16 EDMS 07/15 21:50 Order name: Chest Single View; Complete Time: 22:33 EDMS 07/15 21:42 Order name: EKG - Nurse/Tech; Complete Time: 21:47 sd2 Administered Medications: 21:53 Drug: Nitroglycerin Sublingual 0.4 mg Sublingual once; every five minute if needed x3 rv Route: Sublingual; 22:20 Drug: Nitroglycerin Sublingual 0.4 mg Sublingual once; every five minute if needed x3 rv Route: Sublingual; 23:00 Drug: Nitroglycerin Sublingual 0.4 mg Sublingual once; every five minute if needed x3 rv Route: Sublingual; 23:33 Drug: Calcium Gluconate IVPB 2 grams IVPB once over 60 mins; (mix in NS 100 mL) Route: rv IVPB; Infused Over: 60 mins; Site: right antecubital; 07/16 00:23 Follow up: Response: No adverse reaction; IV Status: Completed infusion rv 07/15 23:33 Drug: Furosemide IVP 80 mg IVP once; give over 2 minutes Route: IVP; Site: right rv antecubital; 07/16 00:23 Follow up: Response: No adverse reaction rv 07/15 23:33 Drug: Albuterol Inhalation 10 mg Inhalation once Route: Inhalation; rv 07/16 00:23 Follow up: Response: No adverse reaction rv 07/15 23:50 Drug: Insulin Regular Human IVP 10 units IVP once {Co-Signature: [email or web address] (андрей Mendoza RN).} Route: IVP; Site: right antecubital; 07/16 00:23 Follow up: Response: Medication administered at discharge. rv 07/15 23:50 Drug: D50W IVP 50 ml IVP once; (1 amp) Route: IVP; Site: right antecubital; rv 07/16 00:23 Follow up: Response: Medication administered at discharge. rv Disposition Summary: 07/15/23 23:32 Transfer Ordered Notes: Transfer Location: [facility] sd2 Reason: Higher level of care sd2 Condition: Stable sd2 Problem: new sd2 Symptoms: have improved sd2 Accepting Physician: [facility] Physician(07/16/23 00:27) rv Diagnosis - Acute Chest Pain sd2 - Elevated troponin sd2 - Hyperkalemia sd2 - End stage renal disease requiring dialysis sd2 - Fluid overload sd2 Forms: - Medication Reconciliation Form sd2 - SBAR form sd2 Signatures: Dispatcher [employer] Awilda Crawford RN RN kl Vicente, Ronaldo, RN RN rv Dunlop, Stephanie, MD MD sd2 Johnson, Juwairiyah RN [email or web address] Corrections: (The following items were deleted from the chart) 07/15 22:14 22:11 CBC+H.LAB.BRZ ordered. CARY TOWNSEND 22:14 22:11 COMPREHENSIVE METABOLIC PANEL+C.LAB.BRZ ordered. EDMS EDMS 22:11 Troponin High Sensitivity+C.LAB.BRZ ordered. EDMS EDMS 22:11 PROBNP+C.LAB.BRZ ordered. EDMS EDMS 22:11 Chest Single View+RAD.RAD.BRZ ordered. EDMS EDMS 07/16 00:27 07/15 23:32 [facility] Physician sd2 rv
--- NOTE | 2023-07-15 23:33 | ER ---
Nurse's Notes [facility] Name: Marcello Mcrae Jr Age: 62 yrs Sex: Male : 1960 Arrival Date: 07/15/2023 Time: 21:24 Bed 2 Private MD: Diagnosis: Acute Chest Pain;Elevated troponin;Hyperkalemia;End stage renal disease requiring dialysis;Fluid overload Presentation: 07/15 21:30 Chief complaint: EMS states: SUDDEN ONSET OF CP, SHARP, R/T LEFT ARM. WITH HX OF TN 2-3 rv WEEKS AGO. WAS SEEN IN [facility] AND FLOWN OUT TO [facility]. Coronavirus screen: At this time, the client does not indicate any symptoms associated with coronavirus-19. Ebola Screen: No symptoms or risks identified at this time. Initial Sepsis Screen: Does the patient meet any 2 criteria? No. Patient's initial sepsis screen is negative. Does the patient have a suspected source of infection? No. Patient's initial sepsis screen is negative. Risk Assessment: Do you want to hurt yourself or someone else? Patient reports no desire to harm self or others. Onset of symptoms was July 15, 2023. 21:30 Method Of Arrival: EMS: [facility] rv 21:30 Acuity: RITO 2 rv Triage Assessment: 21:32 General: Appears uncomfortable, Behavior is anxious. Pain: Complains of pain in chest. rv Neuro: Level of Consciousness is awake, alert, obeys commands, Oriented to person, place, time, situation. Cardiovascular: Reports chest pain, Capillary refill < 3 seconds Patient's skin is warm and dry. Chest pain is described as severe, quality is sharp, is located in left anterior chest wall radiates to left arm(s). Respiratory: Airway is patent Respiratory effort is even, unlabored. GI: No signs and/or symptoms were reported involving the gastrointestinal system. : No signs and/or symptoms were reported regarding the genitourinary system. Derm: Skin is intact. Historical: - Allergies: 21:32 Codeine; rv - PMHx: 21:32 Anxiety; Hypertensive disorder; Myocardial infarction; rv 22:42 peritoneal dialysis; kl - Immunization history:: Adult Immunizations up to date. - Social history:: Smoking status: unknown. Screenin:34 [facility] ED Fall Risk Assessment (Adult) History of falling in the last 3 months, rv including since admission No falls in past 3 months (0 pts) Confusion or Disorientation No (0 pts) Intoxicated or Sedated No (0 pts) Impaired Gait Yes (1 pt) Mobility Assist Device Used No (0 pt) Altered Elimination No (0 pt) Score/Fall Risk Level 0 - 2 = Low Risk Oriented to surroundings, Maintained a safe environment, Educated pt \T\ family on fall prevention, incl call for assistance when getting out of bed, Assessed \T\ reinforced patient's understanding of fall precautions, Provided non-skid footwear, Hourly rounding (assess needs \T\ fall precautionary measures) done, Used ambulatory aids as needed (educated on \T\ assisted with), Used gait belt as appropriate. Abuse screen: Denies threats or abuse. Denies injuries from another. Nutritional screening: No deficits noted. Tuberculosis screening: No symptoms or risk factors identified. Assessment: 21:34 Reassessment: SEE TRIAGE NOTES. rv 21:39 Reassessment: FAMILY ASK NOT TO GIVE NARCOTIC/STRONG PAIN MEDICINE TO THE PATIENT. rv 22:22 Reassessment: CHEST PAIN IS IMPROVING,. PT EXPRESSED OF WILLINGNESS TO BE DISCHARGE AT THIS TIME. UPDATED ON THE STATUS, AWAITING TEST RESULTS AT THIS TIME. Vital Signs: 21:30 BP 211 / 104; Pulse 106; Resp 20; Temp 98; Pulse Ox 96% on 2 lpm NC; Weight 85.73 kg; rv Height 5 ft. 9 in. ; 22:00 BP 194 / 108; Pulse 77; Resp 18; Pulse Ox 98% on 2 lpm NC; rv 22:27 BP 180 / 97; Pulse 76; Resp 16; Pulse Ox 99% ; rv 07/16 00:22 BP 170 / 79; Pulse 87; Resp 18; Temp 98; Pulse Ox 96% on R/A; rv 07/15 21:30 Body Mass Index 27.91 (85.73 kg, 175.26 cm) rv ED Course: 07/15 21:29 Patient arrived in ED. rv 21:31 Gabrielle Hinton MD is Attending Physician. sd2 21:32 Triage completed. rv 21:32 Arm band placed on right wrist. rv 21:33 Maintain EMS IV. Dressing intact. Good blood return noted. Site clean \T\ dry. Gauge \T\ rv site: 20 RAC. 21:34 Patient has correct armband on for positive identification. Client placed on continuous rv cardiac and pulse oximetry monitoring. NIBP monitoring applied. air sampling and monitoring on. 21:35 Scot Guzman, NIDA is Primary Nurse. rv 22:23 No provider procedures requiring assistance completed. rv 22:27 Chest Single View In Process Unspecified. EDMS 23:13 Initiated transfer to [facility]. 5 07/16 00:26 Patient transferred, IV remains in place. rv Administered Medications: 07/15 21:53 Drug: Nitroglycerin Sublingual 0.4 mg Sublingual once; every five minute if needed x3 rv Route: Sublingual; 22:20 Drug: Nitroglycerin Sublingual 0.4 mg Sublingual once; every five minute if needed x3 rv Route: Sublingual; 23:00 Drug: Nitroglycerin Sublingual 0.4 mg Sublingual once; every five minute if needed x3 rv Route: Sublingual; 23:33 Drug: Calcium Gluconate IVPB 2 grams IVPB once over 60 mins; (mix in NS 100 mL) Route: rv IVPB; Infused Over: 60 mins; Site: right antecubital; 07/16 00:23 Follow up: Response: No adverse reaction; IV Status: Completed infusion rv 07/15 23:33 Drug: Furosemide IVP 80 mg IVP once; give over 2 minutes Route: IVP; Site: right rv antecubital; 07/16 00:23 Follow up: Response: No adverse reaction rv 07/15 23:33 Drug: Albuterol Inhalation 10 mg Inhalation once Route: Inhalation; rv 07/16 00:23 Follow up: Response: No adverse reaction rv 07/15 23:50 Drug: Insulin Regular Human IVP 10 units IVP once {Co-Signature: [email or web address] (андрей Mendoza RN).} Route: IVP; Site: right antecubital; 07/16 00:23 Follow up: Response: Medication administered at discharge. rv 07/15 23:50 Drug: D50W IVP 50 ml IVP once; (1 amp) Route: IVP; Site: right antecubital; rv 07/16 00:23 Follow up: Response: Medication administered at discharge. rv Medication: 07/15 21:34 VIS not applicable for this client. rv Outcome: 23:32 ER care complete, transfer ordered by MD. vela 07/16 00:26 Transferred by ground EMS to [facility], Transfer form completed. X-rays sent rv w/ patient. Condition: stable Instructed on the need for transfer, 00:27 Patient left the ED. rv Signatures: Dispatcher [employer] EDAwilda Gupta RN RN kl Vicente, Ronaldo, RN RN rv Dunlop, Stephanie, MD MD sd2 Elsa Marcus [facility] Miles Mendoza RN [email or web address]
[2023-07-16 00:32] VITALS: TEMP 98
[2023-07-16 00:36] VITALS: BP 170/79; O2SAT 96
--- NOTE | 2023-07-17 12:19 | EKG ---
Test Date: 2023-07-15 Test Time: 21:34:18 Airline Transport Pilot: VERNON MEASUREMENT RESULTS: Intervals: Rate: 78 LA: 136 QRSD: 126 QT: 380 QTc: 433 [place]: P: 68 LA: 136 QRS: -3 T: -79 INTERPRETIVE STATEMENTS: Normal sinus rhythm Left ventricular hypertrophy with QRS widening and repolarization abnormality Abnormal ECG Compared to ECG 02/28/2023 20:03:07 Left ventricular hypertrophy now present Early repolarization now present Atrial abnormality no longer present ST (T wave) deviation no longer present Possible ischemia no longer present Electronically Signed On 07-17-23 12:15:35 CDT by Peter Grover
== END 2023-07-16 00:27 | disposition short-term general hospital (02) ==
LOC: ER 21:24
DX: R07.89 Other chest pain (principal); R77.8 Other specified abnormalities of plasma proteins; E87.5 Hyperkalemia; E87.70 Fluid overload, unspecified; I12.0 Hypertensive chronic kidney disease with stage 5 chronic kidney disease or end stage renal disease; N18.6 End stage renal disease; Z99.2 Dependence on renal dialysis; I25.2 Old myocardial infarction; Z88.5 Allergy status to narcotic agent
CPT/HCPCS: 96365; 93005; 85025; 36415; 85610; 85730; 84484; 80053; 83880; 71045; 96375; 99285; J1815; J0612; J7613

== ENCOUNTER 2023-07-24 19:13 | Emergency (ER) | payer OTHER ==
[2023-07-24 19:38] LABS: Absolute Lymphocytes (CBC) 0.6 K/uL (0.7-4.9); Hematocrit 27.6 % (39.6-49.0); Lymphocytes % 7.3 % (15.3-44.8); MCV 96.7 fL (80-100); Platelets 335 thou/uL (152-406); RBC Red Blood Cell Count 2.86 M/uL (4.33-5.43)
[2023-07-24 19:39] LABS: Protime INR 1.24
[2023-07-24] MEDS ORDERED: MORPHINE 4 MG/ML SYR ONE ×2 (19:42→22:07)
[2023-07-24] MEDS ORDERED: ONDANSETRON 4 MG/2 ML VIAL ONE (19:42)
[2023-07-24] MEDS ORDERED: METOCLOPRAMIDE 10 MG/2mL INJ ONE (19:45)
[2023-07-24 20:06] LABS: ALT/SGPT 22 U/L (16-61); AST/SGOT 19 U/L (15-37); Albumin 2.7 g/dL (3.4-5.0); Alkaline Phosphatase 48 U/L (45-117); BUN Blood Urea Nitrogen 64 mg/dL (7-18); Bicarbonate 23 mEq/L (21-32); Bilirubin Direct 0.1 mg/dL (0-0.2); Bilirubin Indirect, Calculated 0.3 mg/dL (0.2-0.8); Bilirubin Total 0.4 mg/dL (0.2-1.0); Glomerular Filtration Rate 4 ml/min (=/>90); Glucose Level 90 mg/dL (74-106); Lipase 1397 U/L (13-75); Magnesium 2.4 mg/dL (1.6-2.4); Potassium 5.2 mEq/L (3.5-5.1); Protein, Total 5.8 g/dL (6.4-8.2); Sodium Level 137 mEq/L (136-145)
[2023-07-24 20:07] LABS: NT PRO-BNP > 175000 pg/mL (<125)
[2023-07-24 20:08] LABS: Troponin High Sensitivity 109.4 pg/mL (<58.9)
--- NOTE | 2023-07-24 20:10 | RAD REPORT ---
EXAM DESCRIPTION: RAD - Chest Single View - 07/24/2023 8:03 pm CLINICAL HISTORY: CHEST PAIN Chest pain. COMPARISON: Chest Single View dated 07/15/2023; Chest Single View dated 02/28/2023; Chest Single View dated 06/16/2022 FINDINGS: Portable technique limits examination quality. The lungs are grossly clear. The heart is mildly enlarged. No displaced fractures. IMPRESSION: No acute intrathoracic process suspected.
--- NOTE | 2023-07-24 21:26 | RAD REPORT ---
EXAM DESCRIPTION: CT - Chest Abd Pelvis Wo Con - 07/24/2023 9:07 pm CLINICAL HISTORY: Chest and abdomen pain. upper abdomen pain;Chest pain COMPARISON: Thorax Wo Con dated 02/28/2023; Chest Single View dated 07/24/2023 TECHNIQUE: A limited noncontrast study was performed. All CT scans are performed using dose optimization technique as appropriate and may include automated exposure control or mA/KV adjustment according to patient size. FINDINGS: The lungs are clear.Trace left pleural effusion.No intrathoracic adenopathy.The heart is e nlarged mildly. The liver, spleen, adrenal glands are within normal limits. There is mild atrophy of both kidneys. No hydronephrosis. There is a mild to moderate inflammatory changes surrounding the pancreas. No bowel obstruction, free air, free fluid or abscess. Normal appendix. Peritoneal dialysis catheter coils in the pelvis. No pathologic lymphadenopathy in the abdomen or pelvis. No worrisome osseous finding. IMPRESSION: Mild to moderate inflammatory appearance to the pancreatic tissue. This may indicate acu te pancreatitis.Suggest correlation with amylase/lipase levels. Mild to moderate renal atrophy.
--- NOTE | 2023-07-24 22:03 | ER ---
Nurse's Notes [facility] Name: Marcello Mcrae Jr Age: 62 yrs Sex: Male : 1960 Arrival Date: 07/24/2023 Time: 19:13 Bed 3 Private MD: Diagnosis: Other acute pancreatitis without necrosis or infection;Hyperkalemia Presentation: 07/24 19:19 Chief complaint: Patient states: Upper abdominal/epigastric pain along with chest pain nj1 since this morning, getting worse. Does peritoneal dialysis at home. 19:19 Coronavirus screen: Vaccine status: Patient reports receiving the 2nd dose of the covid nj1 vaccine. Ebola Screen: Patient denies travel to an Ebola-affected area in the 21 days before illness onset. Initial Sepsis Screen: Does the patient meet any 2 criteria? No. Patient's initial sepsis screen is negative. Does the patient have a suspected source of infection? No. Patient's initial sepsis screen is negative. Risk Assessment: Do you want to hurt yourself or someone else? Patient reports no desire to harm self or others. Onset of symptoms was July 24, 2023 at 08:00. 19:19 Method Of Arrival: Ambulatory nj 19:19 Acuity: RITO 2 nj1 Triage Assessment: 20:14 General: Appears uncomfortable, Behavior is agitated. Pain: Complains of pain in cm10 epigastric area and left upper quadrant Pain currently is 10 out of 10 on a pain scale. EENT: No deficits noted. No signs and/or symptoms were reported regarding the EENT system. Neuro: No deficits noted. Augustin Agitation-Sedation Scale (RASS): 0 - Alert and Calm Level of Consciousness is awake, alert, obeys commands, Oriented to person, place, time, situation. Cardiovascular: No deficits noted. Patient's skin is warm and dry. Respiratory: No deficits noted. Airway is patent Respiratory effort is even, unlabored, Respiratory pattern is regular, symmetrical. GI: No deficits noted. Abdomen is flat. GI: Peritoneal dialysis catheter capped. :. Derm: No deficits noted. No signs and/or symptoms reported regarding the dermatologic system. Skin is intact, Skin is pink, warm \T\ dry. Musculoskeletal: No deficits noted. Range of motion: intact in all extremities. Historical: - Allergies: 20:15 Codeine; nj1 - PMHx: 20:15 Anxiety; Hypertensive disorder; Myocardial infarction; PERITONEAL DIALYSIS; nj1 - Immunization history:: Client reports receiving the 2nd dose of the Covid vaccine. - Social history:: Smoking status: Reported history of juuling and/or vaping. Screenin:17 [facility] ED Fall Risk Assessment (Adult) History of falling in the last 3 months, cm10 including since admission No falls in past 3 months (0 pts) Confusion or Disorientation No (0 pts) Intoxicated or Sedated No (0 pts) Impaired Gait No (0 pts) Mobility Assist Device Used No (0 pt) Altered Elimination No (0 pt) Score/Fall Risk Level 0 - 2 = Low Risk Oriented to surroundings, Maintained a safe environment, Provided non-skid footwear. Abuse screen: Denies threats or abuse. Denies injuries from another. Nutritional screening: No deficits noted. Tuberculosis screening: No symptoms or risk factors identified. Assessment: 23:33 Reassessment: No changes from previously documented assessment. Patient and/or family cm10 updated on plan of care and expected duration. Pain level reassessed. Patient is alert, oriented x 3, equal unlabored respirations, skin warm/dry/pink. 07/25 00:38 Pain: Pain radiates to left upper quadrant Pain began 1 day ago. cm10 01:11 Reassessment: Report given to Nicolás with [facility]. cm10 01:15 Reassessment: Pt leaving A\T\Ox4 via stretcher. Pt's updated on plan of care. cm10 Vital Signs: 07/24 19:19 BP 206 / 111; Pulse 78; Resp 20; Temp 98.6(O); Pulse Ox 100% on R/A; Weight 78.93 kg; nj1 Height 5 ft. 9 in. ; Pain 8/10; 20:45 BP 205 / 103; Pulse 95; Resp 18 S; Pulse Ox 97% on R/A; cm10 22:36 BP 186 / 90; Pulse 103; Resp 18; Pulse Ox 100% on R/A; cm10 07/25 00:30 BP 151 / 72; Pulse 104; Resp 18; Pulse Ox 94% on R/A; cm10 01:00 BP 119 / 74; Pulse 103; Resp 18 S; Pulse Ox 98% on R/A; cm10 10/16 19:19 Body Mass Index 25.70 (78.93 kg, 175.26 cm) nj1 07/24 19:19 Pain Scale: Adult [facility] ED Course: 07/24 19:15 Patient arrived in ED. gm2 19:17 Adalid Colorado PA is PHCP. cp 19:17 Dexter Jimenez DO is Attending Physician. cp 19:26 Brigitte Bryson, NIDA is Primary Nurse. cm10 20:05 XRAY Chest (1 view) In Process Unspecified. EDMS 20:15 Triage completed. nj1 20:15 Arm band placed on right wrist. nj1 20:22 Patient has correct armband on for positive identification. Bed in low position. Call cm10 light in reach. Side rails up X2. Provided Education on: ER process and procedures. . Client placed on continuous cardiac and pulse oximetry monitoring. NIBP monitoring applied. 20:22 No provider procedures requiring assistance completed. Inserted saline lock: 18 gauge cm10 in right antecubital area, using aseptic technique. Blood collected. 21:09 CT Chest Abdomen Pelvis W/O Contrast In Process Unspecified. EDMS 22:05 First set of blood cultures drawn. Inserted saline lock: 20 gauge in left hand, using cm10 aseptic technique. Blood collected. 22:21 Initiated transfer with Nelda at [facility]. rv1 22:30 [facility] declined due to capacity. rv1 22:32 Initiated transfer with Shannon at [facility]. rv1 23:[address] Christensen to [facility] ICU 211. rv1 07/25 00:37 Report given to NIDA Neely. cm10 00:37 Patient transferred, IV remains in place. Patient maintains SpO2 saturation greater cm10 than 95% on room air. Administered Medications: 07/24 19:33 Not Given (Other Intervention Used): ondansetron 4 mg IVP once; over 2 minutes cm10 19:39 Drug: morphine IVP or IV 4 mg IVP once over 4 mins Route: IVP; Infused Over: 4 mins; cm10 Site: right antecubital; 19:39 Drug: metoCLOPramide IVP 10 mg IVP once; over 1 to 2 minutes Route: IVP; Site: right cm10 antecubital; 23:14 Follow up: Response: No adverse reaction cm10 22:20 Drug: hydrALAZINE IVP 10 mg IVP once Route: IVP; Site: left hand; cm10 23:14 Follow up: Response: No adverse reaction; Blood pressure is lowered cm10 22:20 Drug: Calcium Chloride IVP 1 grams IVP once Route: IVP; Site: right antecubital; cm10 23:14 Follow up: Response: No adverse reaction cm10 22:24 Drug: morphine IVP or IV 4 mg IVP once over 4 mins Route: IVP; Infused Over: 4 mins; cm10 Site: right antecubital; 23:14 Follow up: Response: No adverse reaction cm10 22:24 Drug: D10 in Water IVP 250 ml IVP once Route: IVP; Site: right antecubital; cm10 22:24 Follow up: Response: No adverse reaction cm10 22:24 Not Given (Pt BGL 79.): insulin regular human5 units IVP once cm10 23:28 Drug: Albuterol Inhalation 2.5 mg Inhalation every 20 minutes x3 Route: Inhalation; cm10 23:28 Drug: Kayexalate PO 30 grams PO once {Note: Pt only wanted 1 bottle. .} Route: PO; cm10 07/25 01:13 Follow up: Response: No adverse reaction cm10 00:51 Drug: HYDROmorphone IVP 1 mg IVP once Route: IVP; Site: left hand; cm10 01:13 Follow up: Response: No adverse reaction cm10 Medication: 07/24 20:17 VIS not applicable for this client. cm10 Outcome: 22:02 ER care complete, transfer ordered by MD. mohamud 07/25 00:37 Transferred by ground EMS to [facility] Condition: stable Instructed on the need for transfer, 01:30 Patient left the ED. cm10 Signatures: Dispatcher [employer] EDMS Adalid Colorado PA PA cp Villegas, Rebecca rv1 Gali Allen RN RN nj1 Brigitte Bryson RN RN cm10 Aimee Dahl gm2
--- NOTE | 2023-07-24 22:03 | EDPHYS ---
Physician Documentation [facility] Name: Marcello Mcrae Jr Age: 62 yrs Sex: Male : 1960 Arrival Date: 07/24/2023 Time: 19:13 Bed 3 Private MD: ED Physician Dexter Jimenez HPI: 07/24 19:25 This 62 yrs old Male presents to ER via Ambulatory with complaints of Chest Pain. cp 19:25 The patient presents with abdominal pain in the epigastric area, in the upper abdomen. cp Onset: The symptoms/episode began/occurred this morning. 19:25 The pain radiates to chest. Associated signs and symptoms: Pertinent positives: chest cp pain, nausea, Pertinent negatives: constipation, diarrhea, fever, vomiting blood. The symptoms are described as constant. Historical: - Allergies: 20:15 Codeine; nj1 - PMHx: 20:15 Anxiety; Hypertensive disorder; Myocardial infarction; PERITONEAL DIALYSIS; nj1 - Immunization history:: Client reports receiving the 2nd dose of the Covid vaccine. - Social history:: Smoking status: Reported history of juuling and/or vaping. ROS: 19:30 Constitutional: Negative for body aches, chills, fever, cp 19:30 Eyes: Negative for injury, pain, redness, and discharge, cp 19:30 ENT: Negative for drainage from ear(s), ear pain, sore throat, difficulty swallowing, difficulty handling secretions, 19:30 Cardiovascular: Positive for chest pain, 19:30 Respiratory: Negative for cough, shortness of breath, wheezing, 19:30 Abdomen/GI: Positive for abdominal pain, nausea, of the epigastric areaand upper abdomen, 19:30 : Negative for urinary symptoms, 19:30 Neuro: Negative for altered mental status, headache, syncope, weakness, 19:30 All other systems are negative, Exam: 19:34 Constitutional: The patient appears in no acute distress, alert, awake, cp non-diaphoretic, non-toxic, well developed, well nourished, uncomfortable, 19:34 Head/Face: Normocephalic, atraumatic. cp 19:34 Eyes: Periorbital structures: appear normal, Conjunctiva: normal, no exudate, no injection, Sclera: no appreciated abnormality, Lids and lashes: appear normal, bilaterally, 19:34 ENT: External ear(s): are unremarkable, Nose: is normal, Mouth: Lips: moist, Oral mucosa: pink and intact, moist, Posterior pharynx: is normal, airway is patent, no erythema, no exudate, 19:34 Neck: ROM/movement: is normal, is supple, without pain, no range of motions limitations, 19:34 Chest/axilla: Inspection: normal, 19:34 Cardiovascular: Rate: normal, Rhythm: regular, Edema: ankle edema, that is mild, JVD: is not appreciated, 19:34 Respiratory: the patient does not display signs of respiratory distress, Respirations: normal, no use of accessory muscles, no retractions, labored breathing, is not present, Breath sounds: decreased breath sounds, that are mild, throughout, stridor, is not appreciated, wheezing: is not appreciated, 19:34 Abdomen/GI: Inspection: distension, that is mild, Bowel sounds: active, all quadrants, Palpation: soft, in all quadrants, severe abdominal tenderness, in the epigastric area, right upper quadrant and left upper quadrant, voluntary guarding, is elicited in the epigastric area, right upper quadrant and left upper quadrant, 19:34 Back: CVA tenderness, is absent, 19:34 Skin: no rash present. 19:34 Neuro: Orientation: to person, place \T\ time. Mentation: is normal, Motor: moves all fours, strength is normal, 19:36 ECG was reviewed by the Attending Physician. cp Vital Signs: 19:19 BP 206 / 111; Pulse 78; Resp 20; Temp 98.6(O); Pulse Ox 100% on R/A; Weight 78.93 kg; nj1 Height 5 ft. 9 in. ; Pain 8/10; 20:45 BP 205 / 103; Pulse 95; Resp 18 S; Pulse Ox 97% on R/A; cm10 22:36 BP 186 / 90; Pulse 103; Resp 18; Pulse Ox 100% on R/A; cm10 07/25 00:30 BP 151 / 72; Pulse 104; Resp 18; Pulse Ox 94% on R/A; cm10 01:00 BP 119 / 74; Pulse 103; Resp 18 S; Pulse Ox 98% on R/A; cm10 07/24 19:19 Body Mass Index 25.70 (78.93 kg, 175.26 cm) nj1 10/16 19:19 Pain Scale: Adult [facility] MDM: 07/24 19:19 Patient medically screened. 21:45 Data reviewed: vital signs, nurses notes, lab test result(s), EKG, radiologic studies, cp CT scan, plain films. 21:45 I considered the following discharge prescriptions or medication management in the emergency department Medications were administered in the Emergency Department. See MAR. Care significantly affected by the following chronic conditions: Chronic Kidney Disease. Counseling: I had a detailed discussion with the patient and/or guardian regarding the historical points, exam findings, and any diagnostic results supporting the discharge/admit diagnosis, lab results, radiology results, the need to transfer to another facility, for higher level of care. 07/24 19:19 Order name: Basic Metabolic Panel; Complete Time: 20:10 07/24 20:11 Interpretation: Normal except: K 5.2; ANION GAP 15.2; BUN 64; CRE 12.80; GFR 4. 07/24 19:19 Order name: CBC with Diff; Complete Time: 20:10 07/24 20:11 Interpretation: Normal except: RBC 2.86; HGB 9.2; HCT 27.6; RDW 16.6; MPV 7.0; JUAN% cp 83.4; LYM% 7.3; LYMA 0.6. 07/24 19:19 Order name: LFT's; Complete Time: 20:10 07/24 20:11 Interpretation: Normal except: TP 5.8; ALB 2.7; A/G 0.9. 07/24 19:19 Order name: Magnesium; Complete Time: 20:10 07/24 19:19 Order name: NT PRO-BNP; Complete Time: 20:10 07/24 19:19 Order name: PT-INR; Complete Time: 20:10 07/24 19:19 Order name: Troponin HS; Complete Time: 20:10 07/24 20:11 Interpretation: Troponin HS 109.4. 07/24 19:19 Order name: Lipase; Complete Time: 20:10 07/24 20:11 Interpretation: Abnormal: LIP 1397. 07/24 21:41 Order name: Lactate w/ 2H reflex if indic.; Complete Time: 23:33 07/24 21:41 Order name: Blood Culture Adult (2); Complete Time: 00:54 cp 07/24 22:25 Order name: Glucose, Ancillary Testing; Complete Time: 23:33 EDMS 07/24 19:19 Order name: XRAY Chest (1 view); Complete Time: 20:36 cp 07/24 20:36 Interpretation: Report review. cp 07/24 20:13 Order name: CT Chest Abdomen Pelvis W/O Contrast; Complete Time: 21:34 cp 07/24 19:19 Order name: EKG; Complete Time: 19:20 cp 07/24 19:19 Order name: Cardiac monitoring; Complete Time: 19:40 cp 07/24 19:19 Order name: EKG - Nurse/Tech; Complete Time: 19:40 cp 07/24 19:19 Order name: IV Saline Lock; Complete Time: 19:26 cp 07/24 19:19 Order name: Labs collected and sent; Complete Time: 19:26 cp 07/24 19:19 Order name: O2 Per Protocol; Complete Time: 19:26 cp 07/24 19:19 Order name: O2 Sat Monitoring; Complete Time: 19:26 cp EC:36 Rate is 85 beats/min. Rhythm is regular. AL interval is normal. QRS interval is normal. cp QT interval is prolonged at 392 msec. T waves are Inverted in lead aVL. Interpreted by me. Reviewed by me. Administered Medications: 19:33 Not Given (Other Intervention Used): ondansetron 4 mg IVP once; over 2 minutes cm10 19:39 Drug: morphine IVP or IV 4 mg IVP once over 4 mins Route: IVP; Infused Over: 4 mins; cm10 Site: right antecubital; 19:39 Drug: metoCLOPramide IVP 10 mg IVP once; over 1 to 2 minutes Route: IVP; Site: right cm10 antecubital; 23:14 Follow up: Response: No adverse reaction cm10 22:20 Drug: hydrALAZINE IVP 10 mg IVP once Route: IVP; Site: left hand; cm10 23:14 Follow up: Response: No adverse reaction; Blood pressure is lowered cm10 22:20 Drug: Calcium Chloride IVP 1 grams IVP once Route: IVP; Site: right antecubital; cm10 23:14 Follow up: Response: No adverse reaction cm10 22:24 Drug: morphine IVP or IV 4 mg IVP once over 4 mins Route: IVP; Infused Over: 4 mins; cm10 Site: right antecubital; 23:14 Follow up: Response: No adverse reaction cm10 22:24 Drug: D10 in Water IVP 250 ml IVP once Route: IVP; Site: right antecubital; cm10 22:24 Follow up: Response: No adverse reaction cm10 22:24 Not Given (Pt BGL 79.): insulin regular human5 units IVP once cm10 23:28 Drug: Albuterol Inhalation 2.5 mg Inhalation every 20 minutes x3 Route: Inhalation; cm10 23:28 Drug: Kayexalate PO 30 grams PO once {Note: Pt only wanted 1 bottle. .} Route: PO; cm10 07/25 01:13 Follow up: Response: No adverse reaction cm10 00:51 Drug: HYDROmorphone IVP 1 mg IVP once Route: IVP; Site: left hand; cm10 01:13 Follow up: Response: No adverse reaction cm10 Disposition: 07/24 21:14 I attest that I was immediately available on-site in the Emergency Department for ms3 consultation in the care of the patient. 07/25 12:01 Co-signature as Attending Physician, Dexter Jimenez DO. ms3 Disposition Summary: 07/24/23 22:02 Transfer Ordered Notes: Transfer Location: [facility] cp Reason: Higher level of care cp Condition: Stable cp Problem: new cp Symptoms: have improved cp Accepting Physician: Doctor(07/25/23 01:30) cm10 Diagnosis - Other acute pancreatitis without necrosis or infection cp - Hyperkalemia cp Forms: - Medication Reconciliation Form cp - SBAR form cp Signatures: Dispatcher [employer] EDAdalid Willoughby PA PA cp Sims, Marcus, DO DO ms3 Gali Allen RN RN nj1 Brigitte Bryson RN RN cm10 Corrections: (The following items were deleted from the chart) 07/24 22:02 22:02 Doctor cp cp 07/25 01:30 07/24 22:02 Doctor cp cm10
[2023-07-24] MEDS ORDERED: INSULIN REGULAR (HUMAN) 100 UNIT/ML ONE (22:06)
[2023-07-24] MEDS ORDERED: ALBUTEROL 2.5 MG/3 ML NEB SOL ONE (22:07)
[2023-07-24] MEDS ORDERED: HYDRALAZINE HCL 20 MG/ML VIAL ONE (22:07)
[2023-07-24] MEDS ORDERED: Calcium Chloride 10% INJ SYR IV ONE (22:08)
[2023-07-24] MEDS ORDERED: D10W 250 ML IV ONE (22:08)
[2023-07-24] MEDS ORDERED: SOD POLYSTYREN SUL 15 GM/60 ML UCUP ONE (22:08)
[2023-07-25] MEDS ORDERED: HYDROMORPHONE HCL 1 MG/ML INJ ONE (00:56)
[2023-07-25 02:23] VITALS: TEMP 98.6
[2023-07-25 02:28] VITALS: BP 119/74; O2SAT 98
--- NOTE | 2023-07-25 11:20 | EKG ---
Test Date: 2023-07-24 Test Time: 19:29:03 [employer]isher: RON MEASUREMENT RESULTS: Intervals: Rate: 85 MI: 140 QRSD: 98 QT: 392 QTc: 466 Marissa: P: 57 MI: 140 QRS: -3 T: 83 INTERPRETIVE STATEMENTS: Normal sinus rhythm Left atrial enlargement Left ventricular hypertrophy Nonspecific ST and T wave abnormality Prolonged QT Abnormal ECG Compared to ECG 07/15/2023 21:34:18 Atrial abnormality now present ST (T wave) deviation now present Prolonged QT interval now present Early repolarization no longer present Electronically Signed On 07-25-23 11:18:01 CDT by Peter Grover
== END 2023-07-25 01:30 | disposition short-term general hospital (02) ==
LOC: ER 19:13
DX: K85.80 Other acute pancreatitis without necrosis or infection (principal); E87.5 Hyperkalemia; I10 Essential (primary) hypertension; Z99.2 Dependence on renal dialysis; Z88.5 Allergy status to narcotic agent
CPT/HCPCS: 93005; 87040; 85025; 80048; 36415; 83735; 85610; 82947; 80076; 83605; 84484; 83690; 83880; 71250; 74176; 71045; 99285; J1815; J0360; J2765; J7613; J1170; J2405

== ENCOUNTER 2024-05-08 14:23 | Observation (INO) | payer OTHER ==
[2024-05-08] MEDS ORDERED: NA CHLORIDE 0.9% 1,000 ML ONE (14:50)
[2024-05-08] MEDS ORDERED: ASPIRIN 81 MG CHEWABLE TABLET ONE (14:50)
[2024-05-08 15:10] LABS: Absolute Basophils 0.1 K/uL (0-0.5); Absolute Lymphocytes (CBC) 1.6 K/uL (0.7-4.9); Absolute Monocytes 0.7 K/uL (0.1-1.3); Absolute Neutrophil 5.6 K/uL (1.8-8.0); Basophils % 0.8 % (0-1.3); Eosinophils % 0.3 % (0-4.4); Hematocrit 31.7 % (39.6-49.0); Hemoglobin 9.7 g/dL (13.6-17.9); Lymphocytes % 20.2 % (15.3-44.8); MCH 28.4 pg (27.0-35.0); MCHC 30.7 g/dL (32.0-36.0); MCV 92.4 fL (80-100); MPV 6.6 fL (7.6-11.3); Monocytes % 8.6 % (3.3-12.3); Neutrophils % 70.1 % (41.7-73.7); Nucleated Red Blood Cells % 0.3 % (0-0); Platelets 444 thou/uL (152-406); RBC Red Blood Cell Count 3.43 M/uL (4.33-5.43); Red Cell Distribution Width 19.1 % (12.1-15.2)
[2024-05-08] MEDS ORDERED: HYDROMORPHONE HCL 0.5 MG/0.5 ML INJ ONE ×2 (15:19→16:03)
[2024-05-08] MEDS ORDERED: ONDANSETRON 4 MG/2 ML VIAL ONE (15:20)
[2024-05-08] MEDS ORDERED: PANTOPRAZOLE 40 MG INJ ONE (15:20)
--- NOTE | 2024-05-08 15:21 | RAD REPORT ---
EXAM DESCRIPTION: RAD - Chest Single View - 05/08/2024 3:15 pm CLINICAL HISTORY: CHEST PAIN Chest pain. COMPARISON: <Comparisons> FINDINGS: Portable technique limits examination quality. The lungs are grossly clear. The heart is normal in size. No displaced fractures.Right-sided venous c atheter tip in the SVC. IMPRESSION: No acute intrathoracic process suspected.
[2024-05-08 15:24] LABS: PT Prothrombin Time 12.8 SECONDS (9.4-12.5); Protime INR 1.15
[2024-05-08 15:34] LABS: ALT/SGPT 35 U/L (16-61); AST/SGOT 25 U/L (15-37); Albumin/Globulin Ratio 0.6 (1.1-1.8); Alkaline Phosphatase 111 U/L (45-117); Anion Gap 9.2 mEq/L (5.0-15.0); BUN Blood Urea Nitrogen 55 mg/dL (7-18); Bicarbonate 27 mEq/L (21-32); Bilirubin Total 0.3 mg/dL (0.2-1.0); Globulin 3.6 g/dL (2.3-3.5); Glomerular Filtration Rate 11 ml/min (=/>90); Glucose Level 76 mg/dL (74-106); Lipase 44 U/L (13-75); Magnesium 2.1 mg/dL (1.6-2.4); Potassium 4.2 mEq/L (3.5-5.1); Protein, Total 5.6 g/dL (6.4-8.2); Sodium Level 140 mEq/L (136-145); Troponin High Sensitivity 31.5 pg/mL (<58.9)
[2024-05-08 15:39] LABS: Bilirubin Direct < 0.2 mg/dL (0-0.2); Bilirubin Indirect, Calculated 0.1 mg/dL (0.2-0.8)
[2024-05-08] MEDS ORDERED: HYDRALAZINE HCL 25 MG TABLET ONE (15:43)
[2024-05-08] MEDS ORDERED: HYDRALAZINE HCL 20 MG/ML VIAL ONE (15:44)
[2024-05-08 15:53] LABS: NT PRO-BNP 65444 pg/mL (<125)
--- NOTE | 2024-05-08 15:53 | RAD REPORT ---
EXAM DESCRIPTION: CT - Chest Abd Pelvis Wo Con - 05/08/2024 3:37 pm CLINICAL HISTORY: Chest and abdomen pain. Chest pain;Abdominal distention COMPARISON: Chest Abd Pelvis Wo Con dated 07/24/2023; Head C Spine Mpr Wo Con dated 04/20/2024 TECHNIQUE: A limited noncontrast study was. All CT scans are performed using dose optimization technique as appropriate and may include automated exposure control or mA/KV adjustment according to patient size. FINDINGS: The lungs are clear.Small bilateral pleural effusions.No intrathoracic adenopathy. The liver, spleen, pancreas, adrenal glands are within normal limits. Atrophic kidneys. [id number] ascites. No bowel obstruction or free air. Moderate stool throughout the colon. No p athologic lymphadenopathy in the abdomen or pelvis. Hardware is present lower lumbar spine. IMPRESSION: No acute process seen. Mild ascites.
--- NOTE | 2024-05-08 15:56 | EDPHYS ---
Physician Documentation [facility] Name: Marcello Mcrae Jr Age: 63 yrs Sex: Male : 1960 Arrival Date: 05/08/2024 Time: 14:23 Bed 18 Private MD: ED Physician Adalid Palencia HPI: 05/08 15:17 This 63 yrs old Male presents to ER via Ambulatory with complaints of Chest nancy Pain > 30 y/o. Historical: - Allergies: 14:34 Morphine; ko1 14:34 Codeine; ko1 - Home Meds: 14:34 buspirone 10 mg Oral tablet 1 tab nightly [Active]; carvedilol 3.125 mg Oral tablet 1 ko1 tab every 12 hours [Active]; Flomax 0.4 mg Oral capsule 1 cap nightly [Active]; losartan 50 mg Oral tablet 1 tab daily [Active]; Protonix 40 mg Oral tablet 1 tab daily [Active]; sertraline 25 mg Oral tablet 1 tab daily [Active]; - Immunization history:: Adult Immunizations unknown. - Infectious Disease History:: Denies. - Social history:: Smoking status: Patient/guardian denies using tobacco, but has a distant history of tobacco abuse. ROS: 15:24 Constitutional: Negative for fever, chills, and weight loss, Eyes: Negative for injury, nancy pain, redness, and discharge, ENT: Negative for injury, pain, and discharge, Neck: Negative for injury, pain, and swelling, Exam: 15:32 Constitutional: This is a well developed, well nourished patient who is awake, alert, nancy and in no acute distress. Head/Face: Normocephalic, atraumatic. Eyes: Pupils equal round and reactive to light, extra-ocular motions intact. Lids and lashes normal. Conjunctiva and sclera are non-icteric and not injected. Cornea within normal limits. Periorbital areas with no swelling, redness, or edema. ENT: Nares patent. No nasal discharge, no septal abnormalities noted. Tympanic membranes are normal and external auditory canals are clear. Oropharynx with no redness, swelling, or masses, exudates, or evidence of obstruction, uvula midline. Mucous membranes moist. Neck: Trachea midline, no thyromegaly or masses palpated, and no cervical lymphadenopathy. Supple, full range of motion without nuchal rigidity, or vertebral point tenderness. No Meningismus. Chest/axilla: Normal chest wall appearance and motion. Nontender with no deformity. No lesions are appreciated. Cardiovascular: Regular rate and rhythm with a normal S1 and S2. No gallops, murmurs, or rubs. Normal PMI, no JVD. No pulse deficits. Respiratory: Lungs have equal breath sounds bilaterally, clear to auscultation and percussion. No rales, rhonchi or wheezes noted. No increased work of breathing, no retractions or nasal flaring. Abdomen/GI: Soft, non-tender, with normal bowel sounds. No distension or tympany. No guarding or rebound. No evidence of tenderness throughout. Back: No spinal tenderness. No costovertebral tenderness. Full range of motion. Male : Normal genitalia with no discharge or lesions. Skin: Warm, dry with normal turgor. Normal color with no rashes, no lesions, and no evidence of cellulitis. MS/ Extremity: Pulses equal, no cyanosis. Neurovascular intact. Full, normal range of motion. Neuro: Awake and alert, GCS 15, oriented to person, place, time, and situation. Cranial nerves II-XII grossly intact. Motor strength 5/5 in all extremities. Sensory grossly intact. Cerebellar exam normal. Normal gait. Psych: Awake, alert, with orientation to person, place and time. Behavior, mood, and affect are within normal limits. 15:32 Musculoskeletal/extremity: DVT Exam: No signs of deep vein thrombosis. no pain, no swelling, no tenderness, negative Homans' sign noted on exam, no appreciated bluish discoloration, no erythema, no increased warmth, 18:16 ECG was reviewed by the Attending Physician. nancy Vital Signs: 14:32 BP 215 / 93; Pulse 73; Resp 18; Temp 98; Pulse Ox 98% on R/A; ko1 15:06 BP 238 / 99; Pulse 69; Resp 18 S; Pulse Ox 99% on R/A; kc6 16:09 BP 185 / 89; Pulse 88; Resp 19 S; Pulse Ox 98% on R/A; kc6 17:01 BP 167 / 88; Pulse 87; Resp 20 S; Pulse Ox 99% on R/A; kc6 18:09 BP 170 / 87; Pulse 84; Resp 18 S; Pulse Ox 99% on R/A; kc6 19:32 BP 159 / 86; Pulse 79; Resp 18; Pulse Ox 99% ; cp4 MDM: 14:38 Patient medically screened. nancy 15:32 Differential diagnosis: abnormal EKG, acute myocardial infarction, acute pericarditis, nancy anxiety, chest wall pain, costochondritis, esophagitis, gastritis, peptic ulcer disease, pericarditis, pleurisy, pneumonia, stable angina, thoracic aortic disection, unstable angina. HEART Score: History: Moderately Suspicious (1), ECG: Non specific repolarization disturbance / LBTB / PM (1), Age: > 45 and < 65 years (1), Risk Factors: > or = 3 Risk factors for atherosclerotic disease (2), [Hypercholesterolemia] [Hypertension] [DM] Troponin: < or = 1 x Normal Limit (0). The patient was given aspirin in the Emergency Department. MAGGI Risk Score: 1 - Three or more CAD risk factors, TOTAL SCORE = 1. Data reviewed: vital signs, nurses notes, EMS record, lab test result(s), EKG, radiologic studies, CT scan, plain films. Consideration of Admission/Observation Patient was admitted/placed on observation. Escalation of care including admission/observation considered. I considered the following discharge prescriptions or medication management in the emergency department Medications were administered in the Emergency Department. See MAR. Independent interpretation of the following test(s) in the Emergency Department EKG: See my EKG interpretation above CT Scan: My interpretation is ct chest abd pelvis. Test considered but Not performed: Ultrasound no 2 d echo. 05/08 14:39 Order name: Basic Metabolic Panel; Complete Time: 16:11 [facility] 05/08 14:39 Order name: CBC with Diff; Complete Time: 15:28 [facility] 05/08 14:39 Order name: LFT's; Complete Time: 16:11 [facility] 05/08 14:39 Order name: Magnesium; Complete Time: 16:11 [facility] 05/08 14:39 Order name: NT PRO-BNP; Complete Time: 16:11 [facility] 05/08 14:39 Order name: PT-INR; Complete Time: 15:28 nancy 05/08 14:39 Order name: Troponin HS; Complete Time: 16:11 05/08 14:39 Order name: Lipase; Complete Time: 16:11 [facility] 05/08 14:39 Order name: Urinalysis w/ reflexes [facility] 05/08 16:37 Order name: Troponin HS; Complete Time: 17:28 [facility] 05/08 14:39 Order name: XRAY Chest (1 view); Complete Time: 15:28 [facility] 05/08 15:17 Order name: CT Chest Abdomen Pelvis W/O Contrast; Complete Time: 16:11 [facility] 05/08 14:39 Order name: EKG; Complete Time: 14:39 [facility] 05/08 16:26 Order name: EKG; Complete Time: 16:27 [facility] 05/08 17:42 Order name: CONS Physician Consult [facility] 05/08 17:42 Order name: CONS Physician Consult [facility] 05/08 14:39 Order name: Cardiac monitoring; Complete Time: 15:03 [facility] 05/08 14:39 Order name: EKG - Nurse/Tech; Complete Time: 15:03 [facility] 05/08 14:39 Order name: IV Saline Lock; Complete Time: 15:03 [facility] 05/08 14:39 Order name: Labs collected and sent; Complete Time: 15:03 [facility] 05/08 14:39 Order name: O2 Per Protocol; Complete Time: 14:40 [facility] 05/08 14:39 Order name: O2 Sat Monitoring; Complete Time: 14:40 [facility] 05/08 16:26 Order name: EKG - Nurse/Tech; Complete Time: 17:00 [facility] EC:16 Rate is 83 beats/min. Rhythm is regular. QRS [place] is Normal. [place] interval is normal. QRS nancy interval is normal. QT interval is normal. No Q waves. T waves are Normal. No ST changes noted. Clinical impression: NSR w/ Non-specific ST/T Changes, Abnormal EKG without significant change, and No evidence of ischemia. Interpreted by me. Reviewed by me. Administered Medications: 15:15 Discontinued: ns 0.9% 1000 ml IV at 125 ml/hr continuous [facility] 15:03 Drug: Aspirin PO Chewable Tablet 81 mg PO once Route: PO; [facility] 16:08 Follow up: Response: No adverse reaction; Pain is unchanged, physician notified [facility] 15:03 Drug: NS 0.9% IV 1000 ml IV at 125 ml/hr continuous Route: IV; Rate: 125 ml/hr; Site: [facility] right antecubital; 16:08 Follow up: IV Status: Order to discontinue infusion [facility] 15:26 Drug: HYDROmorphone IVP 0.5 mg IVP once Route: IVP; Site: right antecubital; kc6 16:08 Follow up: Response: No adverse reaction; Pain is unchanged, physician notified; RASS: kc6 Alert and Calm (0) 15:26 Drug: Ondansetron IVP 4 mg IVP once; over 2 minutes Route: IVP; Site: right antecubital;kc6 16:08 Follow up: Response: No adverse reaction kc6 15:26 Drug: Pantoprazole IVP 40 mg IVP once Route: IVP; Site: right antecubital; kc6 16:08 Follow up: Response: No adverse reaction kc6 15:49 Drug: HydrALAZINE PO 25 mg PO once Route: PO; mb9 17:00 Follow up: Response: No adverse reaction; Blood pressure is lowered kc6 15:49 Drug: hydrALAZINE IVP 10 mg IVP once Route: IVP; Site: right antecubital; mb9 16:08 Follow up: Response: No adverse reaction; Blood pressure is unchanged kc6 16:08 Drug: hydrALAZINE IVP 10 mg IVP once Route: IVP; Site: right antecubital; kc6 17:00 Follow up: Response: No adverse reaction; Blood pressure is lowered kc6 16:09 Drug: HYDROmorphone IVP 0.5 mg IVP once Route: IVP; Site: right antecubital; kc6 17:00 Follow up: Response: No adverse reaction; Pain is unchanged, physician notified; RASS: kc6 Alert and Calm (0) 17:00 Drug: HYDROmorphone IVP 0.5 mg IVP once Route: IVP; Site: right antecubital; kc6 18:10 Follow up: Response: No adverse reaction; Pain is decreased; RASS: Alert and Calm (0) kc6 17:00 Drug: HYDROmorphone IVP 0.5 mg IVP once Route: IVP; Site: right antecubital; kc6 18:10 Follow up: Response: No adverse reaction; Pain is decreased; RASS: Alert and Calm (0) kc6 Disposition Summary: 05/08/24 15:55 Hospitalization Ordered Notes: Hospitalization Status: Observation nancy [facility] nancy Condition: Fair nancy Problem: new nancy Symptoms: have improved nancy Bed/Room Type: Standard nancy Provider: Jimenez Reddy(05/08/24 17:30) nancy Room Assignment: 208(05/08/24 18:14) bd Diagnosis - Chest pain, unspecified nancy - Essential (primary) hypertension nancy - Dependence on renal dialysis - MWF nancy - Other ascites - trace nancy Forms: - Medication Reconciliation Form nancy - SBAR form nancy - Leadership Thank You Letter nancy Signatures: Dispatcher [employer] EDMS Nilam Greenberg Corey, MD MD cha Attema, Lee, PAID INTERN-C PAID INTERN-Cla1 Susanna Camejo, RN RN kc6 Nikki Miguel, RN RN ko1 Venecia Choi, RN RN mb9 Corrections: (The following items were deleted from the chart) 14:39 14:39 BASIC METABOLIC PANEL+C.LAB.BRZ ordered. EDMS EDMS 14:39 14:39 CBC+H.LAB.BRZ ordered. EDMS EDMS 14:39 14:39 HEPATIC FUNCTION+C.LAB.BRZ ordered. EDMS EDMS 14:39 14:39 MAGNESIUM+C.LAB.BRZ ordered. EDMS EDMS 14:39 14:39 PROBNP+C.LAB.BRZ ordered. EDMS EDMS 14:39 14:39 PROTIME (+INR)+COAG.LAB.BRZ ordered. EDMS EDMS 14:39 14:39 Troponin High Sensitivity+C.LAB.BRZ ordered. EDMS EDMS 14:39 14:39 LIPASE+C.LAB.BRZ ordered. EDMS EDMS 14:39 14:39 Urinalysis+U.LAB.BRZ ordered. EDMS EDMS 17:30 15:55 Jamie Osborne nancy nancy 18:14 15:55 nancy bd
--- NOTE | 2024-05-08 15:56 | ER ---
Nurse's Notes [facility] Name: Marcello Mcrae Jr Age: 63 yrs Sex: Male : 1960 Arrival Date: 05/08/2024 Time: 14:23 Bed 18 Private MD: Diagnosis: Chest pain, unspecified;Essential (primary) hypertension;Dependence on renal dialysis-MWF;Other ascites-trace Presentation: 05/08 14:32 Chief complaint: Patient states: chest pain started last night about 7pm. Coronavirus ko1 screen: At this time, the client does not indicate any symptoms associated with coronavirus-19. Ebola Screen: No symptoms or risks identified at this time. Initial Sepsis Screen: Does the patient meet any 2 criteria? No. Patient's initial sepsis screen is negative. Does the patient have a suspected source of infection? No. Patient's initial sepsis screen is negative. Risk Assessment: Do you want to hurt yourself or someone else? Patient reports no desire to harm self or others. Onset of symptoms was May 08, 2024. 14:32 Method Of Arrival: Ambulatory ko1 14:32 Acuity: RITO 2 ko1 Triage Assessment: 14:34 General: Appears distressed, uncomfortable, Behavior is cooperative, appropriate for ko1 age, anxious. Pain: Complains of pain in chest, abdomen and left arm. Cardiovascular: Reports chest pain, lightheadedness. Historical: - Allergies: 14:34 Morphine; ko1 14:34 Codeine; ko1 - Home Meds: 14:34 buspirone 10 mg Oral tablet 1 tab nightly [Active]; carvedilol 3.125 mg Oral tablet 1 ko1 tab every 12 hours [Active]; Flomax 0.4 mg Oral capsule 1 cap nightly [Active]; losartan 50 mg Oral tablet 1 tab daily [Active]; Protonix 40 mg Oral tablet 1 tab daily [Active]; sertraline 25 mg Oral tablet 1 tab daily [Active]; - Immunization history:: Adult Immunizations unknown. - Infectious Disease History:: Denies. - Social history:: Smoking status: Patient/guardian denies using tobacco, but has a distant history of tobacco abuse. Screenin:06 [facility] ED Fall Risk Assessment (Adult) History of falling in the last 3 months, kc6 including since admission No falls in past 3 months (0 pts) Confusion or Disorientation No (0 pts) Intoxicated or Sedated No (0 pts) Impaired Gait No (0 pts) Mobility Assist Device Used No (0 pt) Altered Elimination No (0 pt) Score/Fall Risk Level 0 - 2 = Low Risk. Abuse screen: Denies threats or abuse. Denies injuries from another. Nutritional screening: No deficits noted. Tuberculosis screening: No symptoms or risk factors identified. Assessment: 15:14 General: Appears in no apparent distress. uncomfortable, well groomed, well developed, kc6 Behavior is calm, cooperative, appropriate for age. Pain: Complains of pain in anterior aspect of left upper chest and left arm Pain radiates to left arm Quality of pain is described as sharp, Pain began 1 day ago. Is continuous, Noted to be grimacing, guarding, moaning, Also complains of no other associated symptoms. Neuro: Level of Consciousness is awake, alert, obeys commands, Oriented to person, place, time, situation, Appropriate for age. Cardiovascular: Reports chest pain, Heart tones S1 S2 present Capillary refill < 3 seconds. Respiratory: Airway is patent Trachea midline Respiratory effort is even, unlabored, Respiratory pattern is regular, symmetrical. GI: No signs and/or symptoms were reported involving the gastrointestinal system. : No signs and/or symptoms were reported regarding the genitourinary system. EENT: No signs and/or symptoms were reported regarding the EENT system. Derm: No signs and/or symptoms reported regarding the dermatologic system. Skin is intact, is healthy with good turgor, Skin is pink, warm \T\ dry. Musculoskeletal: No signs and/or symptoms reported regarding the musculoskeletal system. Circulation, motion, and sensation intact. Capillary refill < 3 seconds, Range of motion: intact in all extremities. 16:09 Reassessment: Patient appears in no apparent distress at this time. No changes from 6 previously documented assessment. Patient and/or family updated on plan of care and expected duration. Pain level reassessed. Patient is alert, oriented x 3, equal unlabored respirations, skin warm/dry/pink. Patient states symptoms have not improved. 16:10 Reassessment: Mary Mcrae () [phone]. [facility] 17:01 Reassessment: Patient appears in no apparent distress at this time. No changes from kc6 previously documented assessment. Patient and/or family updated on plan of care and expected duration. Pain level reassessed. Patient is alert, oriented x 3, equal unlabored respirations, skin warm/dry/pink. 18:09 Reassessment: Patient appears in no apparent distress at this time. No changes from kc6 previously documented assessment. Patient and/or family updated on plan of care and expected duration. Pain level reassessed. Patient is alert, oriented x 3, equal unlabored respirations, skin warm/dry/pink. Vital Signs: 14:32 BP 215 / 93; Pulse 73; Resp 18; Temp 98; Pulse Ox 98% on R/A; ko1 15:06 BP 238 / 99; Pulse 69; Resp 18 S; Pulse Ox 99% on R/A; kc6 16:09 BP 185 / 89; Pulse 88; Resp 19 S; Pulse Ox 98% on R/A; kc6 17:01 BP 167 / 88; Pulse 87; Resp 20 S; Pulse Ox 99% on R/A; kc6 18:09 BP 170 / 87; Pulse 84; Resp 18 S; Pulse Ox 99% on R/A; kc6 19:32 BP 159 / 86; Pulse 79; Resp 18; Pulse Ox 99% ; cp4 ED Course: 14:27 Patient arrived in ED. ra3 14:34 Triage completed. ko1 14:34 Arm band placed on right wrist. Patient placed in an internal wait recliner, Patient ko1 notified of wait time. 14:38 Gabrielle Hinton MD is Attending Physician. sd2 14:38 Attending Physician role handed off by Gabrielle Hinton MD [facility] 14:38 Adalid Palencia MD is Attending Physician. nancy 14:40 Susanna Camejo, NIDA is Primary Nurse. kc6 15:06 Patient has correct armband on for positive identification. Placed in gown. Bed in low kc6 position. Call light in reach. Side rails up X2. playground monitor on. Pulse ox on. NIBP on. Door closed. Noise minimized. Visitors limited. Lights dimmed. Warm blanket given. Pillow given. 15:06 Inserted saline lock: 20 gauge in right antecubital area, using aseptic technique. kc6 Blood collected. Flushed with 10 mL NS. 15:17 XRAY Chest (1 view) In Process Unspecified. EDMS 15:38 CT Chest Abdomen Pelvis W/O Contrast In Process Unspecified. EDMS 15:54 Jamie Osborne MD is Hospitalizing Provider. [facility] 17:00 Troponin HS Sent. kc6 17:30 Jimenez Reddy MD is Hospitalizing Provider. [facility] 19:36 Provided Education on: admission. [facility] 19:36 No provider procedures requiring assistance completed. Patient admitted, IV remains in cp4 place. Patient maintains SpO2 saturation greater than 95% on room air. Administered Medications: 15:15 Discontinued: ns 0.9% 1000 ml IV at 125 ml/hr continuous [facility] 15:03 Drug: Aspirin PO Chewable Tablet 81 mg PO once Route: PO; kc6 16:08 Follow up: Response: No adverse reaction; Pain is unchanged, physician notified [facility] 15:03 Drug: NS 0.9% IV 1000 ml IV at 125 ml/hr continuous Route: IV; Rate: 125 ml/hr; Site: [facility] right antecubital; 16:08 Follow up: IV Status: Order to discontinue infusion [facility] 15:26 Drug: HYDROmorphone IVP 0.5 mg IVP once Route: IVP; Site: right antecubital; kc6 16:08 Follow up: Response: No adverse reaction; Pain is unchanged, physician notified; RASS: [facility] Alert and Calm (0) 15:26 Drug: Ondansetron IVP 4 mg IVP once; over 2 minutes Route: IVP; Site: right antecubital;kc6 16:08 Follow up: Response: No adverse reaction [facility] 15:26 Drug: Pantoprazole IVP 40 mg IVP once Route: IVP; Site: right antecubital; kc6 16:08 Follow up: Response: No adverse reaction kc6 15:49 Drug: HydrALAZINE PO 25 mg PO once Route: PO; mb9 17:00 Follow up: Response: No adverse reaction; Blood pressure is lowered kc6 15:49 Drug: hydrALAZINE IVP 10 mg IVP once Route: IVP; Site: right antecubital; mb9 16:08 Follow up: Response: No adverse reaction; Blood pressure is unchanged kc6 16:08 Drug: hydrALAZINE IVP 10 mg IVP once Route: IVP; Site: right antecubital; kc6 17:00 Follow up: Response: No adverse reaction; Blood pressure is lowered kc6 16:09 Drug: HYDROmorphone IVP 0.5 mg IVP once Route: IVP; Site: right antecubital; kc6 17:00 Follow up: Response: No adverse reaction; Pain is unchanged, physician notified; RASS: kc6 Alert and Calm (0) 17:00 Drug: HYDROmorphone IVP 0.5 mg IVP once Route: IVP; Site: right antecubital; kc6 18:10 Follow up: Response: No adverse reaction; Pain is decreased; RASS: Alert and Calm (0) kc6 17:00 Drug: HYDROmorphone IVP 0.5 mg IVP once Route: IVP; Site: right antecubital; kc6 18:10 Follow up: Response: No adverse reaction; Pain is decreased; RASS: Alert and Calm (0) kc6 Medication: 19:36 VIS not applicable for this client. cp4 Outcome: 15:55 Decision to Hospitalize by Provider. nancy 19:36 Admitted to Med/surg accompanied by tech, via stretcher, with chart, cp4 19:36 Condition: stable 19:36 Instructed on the need for admit, 19:37 Patient left the ED. cp4 Signatures: Dispatcher [employer] EDAdalid Damon MD MD cha Dunlop, Stephanie, MD MD sd2 Susanna Camejo, RN RN kc6 Nikki Miguel RN RN ko1 Venecia Choi RN RN mbMartita Yeung cp4 Julianna Michele ra3 Corrections: (The following items were deleted from the chart) 17:01 17:01 BP 127 / 88; Pulse 87bpm; Resp 20bpm; Spontaneous; Pulse Ox 99% RA; kc6 kc6
[2024-05-08] MEDS ORDERED: HYDROMORPHONE HCL 1 MG/ML INJ ONE (16:36)
[2024-05-08] MEDS ORDERED: ONDANSETRON 4 MG/2 ML VIAL IV PRN (19:31)
[2024-05-08] MEDS ORDERED: ACETAMINOPHEN 500 MG TAB PO PRN (19:31)
[2024-05-08] MEDS ORDERED: SODIUM CHLORIDE 0.9% 10ML INJ IV PRN (19:31)
[2024-05-08 20:08] VITALS: BMI 22.8
[2024-05-08] MEDS: carvediloL 3.125 MG TAB PO SCH ×2 (20:14→23:01)
[2024-05-08] MEDS: HYDRALAZINE HCL 10 MG TABLET PO SCH (20:14)
[2024-05-08] MEDS: LOSARTAN POTASSIUM 50 MG TABLET PO SCH (20:15)
[2024-05-08] MEDS: HYDROMORPHONE HCL 0.5 MG/0.5 ML INJ IV PRN (20:16)
[2024-05-08] MEDS: DIPHENHYDRAMINE 25 MG TAB/CAP PO ONE (22:51)
[2024-05-08] MEDS: AMLODIPINE 5 MG TAB PO ONE (22:51)
[2024-05-09] MEDS: LORAZEPAM 0.5 MG TABLET PO PRN (00:26)
[2024-05-09 01:43] VITALS: O2SAT 97
[2024-05-09] MEDS: ACETAMINOPHEN 325 MG TABLET PO PRN (02:09)
[2024-05-09 06:08] LABS: Absolute Eosinophils 0.2 K/uL (0-0.5); Absolute Lymphocytes (CBC) 1.6 K/uL (0.7-4.9); Absolute Monocytes 0.7 K/uL (0.1-1.3); Absolute Neutrophil 4.6 K/uL (1.8-8.0); Basophils % 0.5 % (0-1.3); Eosinophils % 3.1 % (0-4.4); Hemoglobin 9.5 g/dL (13.6-17.9); Lymphocytes % 22.9 % (15.3-44.8); MCHC 31.6 g/dL (32.0-36.0); MCV 91.8 fL (80-100); MPV 6.7 fL (7.6-11.3); Neutrophils % 63.5 % (41.7-73.7); Nucleated Red Blood Cells % 0.1 % (0-0); Platelets 448 thou/uL (152-406); RBC Red Blood Cell Count 3.26 M/uL (4.33-5.43); Red Cell Distribution Width 19.3 % (12.1-15.2)
--- NOTE | 2024-05-09 06:24 | HP ---
Date of Admission: 05/08/2024 Chief Complaint: High blood pressure and chest pain. History Of Present Illness: This is a 63-year-old male patient who has multiple comorbidities, on hemodialysis for end-stage renal disease, went for his routine dialysis as per schedule today. While he was there, his systolic blood pressure was high, around 200 mmHg and he was complaining of chest pain and left arm pain, so with that, dialysis center contacted the patient's who went there to pick him up and brought him to emergency room. The patient did not have dialysis today. After he was evaluated, I was contacted requesting admission to the hospital. When I saw him in emergency room, he was lying in bed, asymptomatic and his was present with him at bedside. Allergies: ACCORDING TO OFFICE RECORD, IT IS LISTED NO KNOWN ALLERGIES. ACCORDING TO HOSPITAL RECORD, THAT IS LISTED ALLERGIC TO CODEINE. Review of Systems: Cardiovascular: As mentioned above. All other systems reviewed and negative. Medications: He takes fentanyl patch and hydrocodone for his chronic pain as prescribed by the pain management doctor. He takes Bumex 1 mg daily, buspirone 10 mg daily, carvedilol 6.25 mg 2 times a day, fenofibrate 120 mg daily, hydralazine 50 mg 2 times a day as needed for systolic blood pressure more than 160, Creon as prescribed by boat outboard engine mechanic, lorazepam 0.5 mg 2 times a day as needed for anxiety, Zofran 4 mg every 12 hours as needed for nausea and vomiting, pantoprazole 40 mg 2 times a day, promethazine 25 mg every 4 hours as needed for nausea and vomiting, sertraline 25 mg daily, tamsulosin 0.4 mg daily, losartan 100 mg daily. Past Medical History: Significant for hypertension; hyperlipidemia; end-stage renal disease, on hemodialysis; osteoarthritis; anxiety; depression; anemia due to chronic kidney disease; history of gout. Past Surgical History: Back surgery. Amputation of the left hand second, third, fourth, and fifth finger at age 26 years due to work accident. Family History: The patient is adopted; details unknown about biological parents. Social History: Prior history of smoking, not at present time. Use of alcohol, occasional. Physical Examination: Vital Signs: Temperature 97.9, pulse 76, respiratory rate 16, blood pressure 192/93, oxygen saturation 97%. Height 5 feet 9 inches, weight 155 pounds. General: Awake, alert, oriented, not in distress. HEENT: Head atraumatic, normocephalic. Conjunctivae nonerythematous. Sclerae white. Mouth, no thrush or edema noted. Ears/Nose, no mass, lesion, discharge noted. Neck: Supple. No JVD, lymph nodes, bruit, thyromegaly noted. Lungs: Bilateral good equal air entry. Clear to auscultation. No rhonchi. No rales. Heart: Normal heart sounds, no murmur or gallop. Abdomen: Soft, bowel sounds normal. No guarding, rigidity, tenderness, mass, hepatosplenomegaly, distention, or bruit noted. Extremities: Amputation of second, third, fourth, and fifth fingers on the left hand. No leg edema. No calf tenderness. Skin: No rash, ulcer, cellulitis. Lymphatics: No lymph node enlargement in neck, supraclavicular, infraclavicular region. Neuro: No focal neurological deficit. Chest: Unremarkable. External Genitalia: Deferred. Rectal: Deferred. Laboratory Data: WBC 8, hemoglobin 9.7, platelets 444. Sodium 140, potassium 4.2, chloride 108, bicarb 27, BUN 55, creatinine 5.69, glucose 76. Liver function test unremarkable. Initial troponin 31.5, second troponin 22.9. ProBNP 65,444. Lipase 44. Chest x-ray: No acute cardiopulmonary changes. CAT scan of the chest, abdomen and pelvis without contrast shows no acute changes, presence of mild ascites. Impression: 1. Chest pain. 2. Hypertension. 3. End-stage renal disease, on hemodialysis. 4. Hyperlipidemia. 5. Anemia due to chronic kidney disease. 6. Osteoarthritis, multiple sites. 7. Anxiety. 8. Depression. Plan: We will go ahead and admit the patient to hospital for further evaluation and management of this problem. The patient is appropriate for observation. We will get serial cardiac enzymes. There is no concern about AL. His 2 cardiac enzymes are negative. EKG has not shown any acute changes. The patient's has informed me that between 1 to 2 months he had cardiac workup, including echocardiogram as well as stress test done by his hydrogeologist as a part of preop cardiac workup, and all those tests came back negative. The patient sees his hydrogeologist frequently in [place]. also reports that he has very frequent complaints of chest pain, which is nothing new for him also, so very likely the patient will not require any further intervention at our hospital if we rule out his AL. We will get a set of cardiac enzyme on him per order. For his end-stage renal disease, he is on hemodialysis and he missed his dialysis session today, so we will request his language pathologist, Dr. Jean, to see if they can perform dialysis tomorrow or not, or if the patient can be released to go home tomorrow to go to dialysis center and get his dialysis. For his hypertension, we will continue his antihypertensive medication per order and I have ordered amlodipine 5 mg one-time dose to be given tonight. We will see how his blood pressure is overnight. For hyperlipidemia, no need for further intervention. For his anxiety and depression, he is on sertraline and lorazepam. We will continue those medications per order. The patient has chronic anemia due to underlying chronic kidney disease, and no need for further intervention. Total time spent is 75 minutes, including review of current emergency room records, communication with emergency room physician, performing today's evaluation and management as well as review of last office visit record. YAMILE/QUEENIE Voice ID: [id number] DELORIS
[2024-05-09 06:34] LABS: Anion Gap 8.9 mEq/L (5.0-15.0); Potassium 4.9 mEq/L (3.5-5.1)
[2024-05-09] MEDS: PANTOPRAZOLE 40 MG INJ IVP SCH (07:51)
[2024-05-09] MEDS: SERTRALINE HCL 50 MG TAB PO SCH (07:56)
[2024-05-09] MEDS: TAMSULOSIN 0.4 MG SR CAP PO SCH (07:56)
[2024-05-09] MEDS: ASPIRIN EC 81 MG TAB PO SCH (07:57)
[2024-05-09] MEDS: BUSPIRONE HCL 5 MG TABLET PO SCH (07:57)
--- NOTE | 2024-05-09 11:43 | P.CNS ---
Date of Consult: 05/09/24 Reason for Consult: ESRD Requesting Physician: Tyron Reddy Chief Complaint: Chest pain History of Present Illness: Pt is a 63 yo male with a hx of chronic malignant HTN, ESRD on TECHNICAL SPEC for several years, prev on CCPD but transitioned to iHD via TDC this spring, a hx of recurrent/chronic pancreatitis, some possible chronic liver disease, recurrent ascites in recent mo requiring monthly taps, chronic diastolic CHF, hx of pericardial effusion, chronic pain syndrome on fentanyl pain patch, PTSD/generalized anxiety and other. Pt wsa referred to ER by dialysis staff yesterday as found in the waiting area moaning and reporting some left sided CP intermittently. Pt is a poor historian and is often anxious and has chronic abdominal pain and seen in the dialysis suite this AM he is uncomfortable and focused primarily on his pain medication needs and "needing something to settle down." Allergies codeine Allergy (Unknown, Verified 05/08/24 20:13) unknown morphine Adverse Reaction (Verified 05/08/24 20:13) Itching Home Medications: Losartan Potassium 50 mg PO BEDTIME 12/02/23 Pantoprazole [Protonix Tab*] 40 mg PO DAILY 12/02/23 Tamsulosin [Flomax*] 0.4 mg PO BEDTIME 12/02/23 Cholecalciferol (Vitamin D3) [Vitamin D 1000 Iu Tab*] 2,000 unit PO DAILY #30 tab 12/14/23 LORazepam [Ativan] 0.5 mg PO BID PRN #30 tab 12/14/23 Hydrocodone 10/APAP 325 [Twilight 10/325] 1 tab PO Q6H PRN #40 tab 12/16/23 Bumetanide [Bumex] 2 mg PO BID 05/09/24 Buspirone HCl [Buspar] 10 mg PO BEDTIME 05/09/24 Diphenhydramine HCl [Benadryl Allergy] 25 mg PO BEDTIME 05/09/24 Sertraline [Zoloft] 25 mg PO DAILY 05/09/24 carvediloL [Carvedilol] 6.25 mg PO BID 05/09/24 - Past Medical/Surgical History Diabetic: No -: End-stage renal disease followed by Dr. Juarez/Ted -: Hypertension -: Peritoneal dialysis - Social History Smoking Status: Current every day smoker Alcohol use: No CD- Drugs: No Caffeine use: No Place of Residence: Home Review of Systems General: As per HPI Eyes: Unremarkable ENT: Unremarkable Respiratory: Unremarkable Cardiovascular: Chest Pain, As per HPI Gastrointestinal: Abdominal Pain, As per HPI Genitourinary: Unremarkable Musculoskeletal: As per HPI Integumentary: Unremarkable Neurological: Unremarkable Lymphatics: Unremarkable Physical Examination Temp Pulse Resp BP Pulse Ox 99.4 F 74 15 163/69 H 97 05/09/24 08:00 05/09/24 08:00 05/09/24 08:21 05/09/24 08:00 05/09/24 08:21 General: Other (Chronically ill appearing, pale, anxious) HEENT: Atraumatic, Normocephalic, Other (hard of hearing) Neck: Supple Respiratory: Clear to auscultation bilaterally, Normal air movement Cardiovascular: Regular rate/rhythm, Normal S1 S2, Other (cardiac murmur) Gastrointestinal: Soft and benign, No guarding, Other (mild tenderness of upper abd on deeper palpation), Distended, Ascites Musculoskeletal: No contractures, No tenderness, Other (muscle mass loss) Integumentary: No rashes Neurological: Normal speech, Normal tone, Other (anxious effect, no tremors) Laboratory Data (last 24 hrs) 05/08/24 05/08/24 05/08/24 14:59 14:59 14:59 WBC 8.00 Hgb 9.7 L Hct 31.7 L Plt Count 444 H PT 12.8 H INR 1.15 Sodium 140 Potassium 4.2 BUN 55 H Creatinine 5.69 H Glucose 76 Magnesium 2.1 Total Bilirubin 0.3 AST 25 ALT 35 Alkaline Phosphatase 111 Lipase 44 Conclusions/Impression: ESRD chronically 2nd to HTN/other. Small kidneys b/l -Had done more poorly on CCPD and with continued intermittent abd pain, N/V, oth er, in that setting, did remove PD catheter last spring and did transition to OP iHD via CVC -Missed HD yesterday due to CP episode, make up treatment today Labile HTN with CKD/ CHF -Resumed home BP meds of Coreg and Losartan, f/u post HD BP Recurrent abd pain, chronic pancreatitis, hx of pancreatic cyst/other Chronic mod to severe protein Malnutrition Hypoalbuminemia Recurrent ascites -On fentanyl pain patch through pain management, defer to IM to order here -Extensive w/u for malignancy, EUS/biopsy and other w/u done at [facility], OP GI and other Chest pain unspecified. Chronic diastolic CHF -Neg troponins here, just saw his OP exchange administrator and reportedly was told no major concerns, will need to obtain records of any recent TTE/other
[2024-05-09 15:09] VITALS: BP 166/87; TEMP 98.6
--- NOTE | 2024-05-10 13:33 | EKG ---
Test Date: 2024-05-09 Test Time: 08:21:22 Wood Heel Cementer: ALLY MEASUREMENT RESULTS: Intervals: Rate: 77 ME: 128 QRSD: 94 QT: 406 QTc: 459 Burrton: P: 58 ME: 128 QRS: -27 T: 8 INTERPRETIVE STATEMENTS: Normal sinus rhythm Possible Left atrial enlargement Borderline ECG Compared to ECG 05/08/2024 16:50:38 Right-axis deviation no longer present Electronically Signed On 05-10-24 13:29:55 CDT by Peter Grover
--- NOTE | 2024-05-10 13:36 | EKG ---
Test Date: 2024-05-08 Test Time: 16:50:38 Construction Foreman: MARY MEASUREMENT RESULTS: Intervals: Rate: 83 ND: 130 QRSD: 102 QT: 406 QTc: 477 Mcdonald: P: 95 ND: 130 QRS: 103 T: 28 INTERPRETIVE STATEMENTS: Suspect arm lead reversal, interpretation assumes no reversal Normal sinus rhythm Rightward axis Pulmonary disease pattern Abnormal ECG Compared to ECG 05/08/2024 14:47:18 Right-axis deviation now present Indeterminate axis no longer present Myocardial infarct finding no longer present Electronically Signed On 05-10-24 13:32:01 CDT by Peter Grover
--- NOTE | 2024-05-10 13:36 | EKG ---
Test Date: 2024-05-08 Test Time: 14:47:18 Cane Packer: RICHIE MEASUREMENT RESULTS: Intervals: Rate: 59 OK: 122 QRSD: 90 QT: 424 QTc: 419 Mayer: P: -84 OK: 122 QRS: 171 T: 1 INTERPRETIVE STATEMENTS: Unusual P axis and short OK, probable junctional rhythm Indeterminate axis Anterior infarct, age undetermined Abnormal ECG Compared to ECG 04/20/2024 22:36:10 Indeterminate axis now present Sinus rhythm no longer present Myocardial infarct finding still present Electronically Signed On 05-10-24 13:32:06 CDT by Peter Grover
--- NOTE | 2024-05-10 20:51 | DS ---
Date of Discharge: 05/09/2024 Disposition: Discharged to go home. Physical Examination: HEENT: Unremarkable. Lungs: Clear to auscultation. Heart: Sounds normal. Abdomen: Soft. Bowel sounds normal. No guarding, rigidity, tenderness, distention. Extremities: No leg edema. Discharge Medications And Instructions: 1.Continue all prior home medications. 2.Start amlodipine 5 mg, take 1 tablet by mouth daily in morning and prescription was sent to his ara from office. 3.Follow up at my office next week. 4.Follow up with application support manager in 1 to 2 weeks. Laboratory Data: Upon admission, white count 8, hemoglobin 9.7, platelets 444. Today, white count 7 .2, hemoglobin 9.5, platelets 448. Upon admission, chemistry shows sodium 140, potassium 4.2, chlori de 108, bicarb 27, BUN 55, creatinine 5.69, glucose 76. Liver function tests unremarkable. Initial troponin 31.5, second troponin 22.9, and third troponin this 24.4. Today, chemistry shows sodium 143 , potassium 4.9, chloride 111, bicarb 28, BUN 64, creatinine 6.38, glucose 83. Hospital Course: This is a 63-year-old male patient with end-stage renal disease, on hemodialysis, w ho has been having frequent chest pain as reports and he is under care of his application support manager in [facility]. Recently within last 1 to 2 months, the patient had a negative stress test and an echocardiog georges done by his application support manager prior to his fistula placement surgery for dialysis. He was brought int o emergency room with high blood pressure and chest pain. Please see dictated H and P for more infor mation. His FL was ruled out by getting serial cardiac enzymes. The patient has not had any recurre nce of chest pain now. When I saw him this morning, he did not have any other complaints. He missed his dialysis yesterday, so radiographer technologist was consulted and the patient had his hemodialysis today and after dialysis, he was discharged to go home. Yesterday evening, we did start him on amlodipine for his high blood pressure as his admission blood pressure was 192/93. I will continue his amlodipine on a daily basis at home and we will see how he responds to it. Final Diagnoses: 1.Chest pain. 2.Hypertension. 3.End-stage renal disease, on hemodialysis. 4.Hyperlipidemia. 5.Anemia in chronic kidney disease. 6.Anxiety. 7.Osteoarthritis, multiple sites. 8.Gout. Total time spent 40 minutes. YAMILE/MODL Voice ID: [id number] Report ID: [id number]
== END 2024-05-09 15:24 | disposition home or self-care (01) ==
LOC: ER 14:23 → ERHOLD 17:45 → 2ND 18:48
PROVIDERS: ADMIT Internal Medicine; ATTEND Internal Medicine
DX: R07.9 Chest pain, unspecified (principal); N18.6 End stage renal disease; I10 Essential (primary) hypertension; E78.5 Hyperlipidemia, unspecified; D63.1 Anemia in chronic kidney disease; M19.90 Unspecified osteoarthritis, unspecified site; F41.9 Anxiety disorder, unspecified; F32.A Depression, unspecified; K86.1 Other chronic pancreatitis; E88.09 Other disorders of plasma-protein metabolism, not elsewhere classified; I50.32 Chronic diastolic (congestive) heart failure; R10.9 Unspecified abdominal pain; Z99.2 Dependence on renal dialysis; Z88.5 Allergy status to narcotic agent
CPT/HCPCS: 36415; 71045; 71250; 74176; 80048; 80076; 83690; 83735; 83880; 84484; 85025; 85610; 90935; 93005; 96361; 96374; 96375; 99285; G0378; J0360; J1170; J1644; J2405; J2470; J7030

== ENCOUNTER 2024-06-16 14:00 | Emergency (ER) | payer OTHER ==
[2024-06-16] MEDS ORDERED: FENTANYL CITR 100 MCG/2 ML ONE ×2 (14:15→16:00)
--- NOTE | 2024-06-16 14:44 | RAD REPORT ---
EXAM DESCRIPTION: CT - Head Brain Wo Cont - 06/16/2024 2:36 pm CLINICAL HISTORY: SYNCOPE Small, trauma, head injury COMPARISON: Head Brain Wo Cont dated 06/16/2022; HEAD BRAIN W O CONTRAST dated 10/21/2013; Angio Aorta For Dissection dated 06/16/2024 TECHNIQUE: All CT scans are performed using dose optimization technique as appropriate and may inclu de automated exposure control or mA/KV adjustment according to patient size. FINDINGS: No intracranial hemorrhage, hydrocephalus or extra-axial fluid collection.Mild brain atrop hy.No areas of brain edema or evidence of midline shift. Vertebral atherosclerosis. The paranasal sinuses and mastoids are clear. The calvarium is intact. IMPRESSION: No acute intracranial abnormality.
[2024-06-16 14:46] LABS: Absolute Basophils 0.1 K/uL (0-0.5); Absolute Eosinophils 0.3 K/uL (0-0.5); Absolute Lymphocytes (CBC) 1.9 K/uL (0.7-4.9); Absolute Monocytes 0.5 K/uL (0.1-1.3); Absolute Neutrophil 4.9 K/uL (1.8-8.0); Basophils % 1.4 % (0-1.3); Eosinophils % 4.1 % (0-4.4); Hematocrit 41.8 % (39.6-49.0); Hemoglobin 13.3 g/dL (13.6-17.9); Lymphocytes % 24.7 % (15.3-44.8); MCH 27.1 pg (27.0-35.0); MCHC 31.9 g/dL (32.0-36.0); MPV 6.6 fL (7.6-11.3); Monocytes % 6.5 % (3.3-12.3); Neutrophils % 63.3 % (41.7-73.7); Nucleated Red Blood Cells % 0.4 % (0-0); Platelets 345 thou/uL (152-406); RBC Red Blood Cell Count 4.92 M/uL (4.33-5.43)
--- NOTE | 2024-06-16 14:49 | RAD REPORT ---
EXAM DESCRIPTION: CT - Angio Aorta For Dissection - 06/16/2024 2:36 pm CLINICAL HISTORY: Chest pain radiating to the back. chest, abd pain COMPARISON: Head Brain Wo Cont dated 06/16/2024 TECHNIQUE: CT angiography of the aorta was performed with MIPs. All CT scans are performed using dose optimization technique as appropriate and may include automated exposure control or mA/KV adjustment according to patient size. FINDINGS: A left aortic arch is present with normal branching pattern of the great vessels.No acute aortic finding is seen such as aneurysm, penetrating ulcer or dissection. Moderately severe atherosc lerosis of the abdominal aorta and visceral artery origins seen. Heavy ostial atherosclerotic plaque involving both renal arteries noted. No evidence of pulmonary embolism. Trace left and small right pleural effusion with bibasilar lung atelectasis. No focal pulmonary infil trate. The liver demonstrates no focal mass or biliary dilatation.The spleen is normal in size. The pancreas demonstrates mild dilatation of the pancreatic duct. There is a 2 cm rounded hypodense lesion in the uncinate process.Both adrenal glands are normal. Significant atrophy of both kidneys. No bowel obstruction or free air. Mild ascites.The appendix is not identified as a discrete structure , however, no secondary findings of appendicitis are identified. No pathologic enlarged lymphadenopat hy identified. Moderate lower lumbar degenerative changes with hardware at the L5-S1 junction with postoperative nancy nges present. IMPRESSION: No acute aortic finding is demonstrated. Heavy atherosclerosis of the abdominal aorta noted as well as the origins of the major visceral arter ies. Bilateral renal artery stenosis is probably present. Significant atrophy of both kidneys. Mild ascites. Small left and small moderate right pleural effusion. Indeterminate 2 cm rounded hypodense lesion in the pancreatic uncinate process region. Recommend none mergent follow-up MRI pancreas protocol and MRCP for further evaluation
[2024-06-16 15:13] LABS: ALT/SGPT 23 U/L (16-61); AST/SGOT 34 U/L (15-37); Albumin 2.7 g/dL (3.4-5.0); Albumin/Globulin Ratio 0.7 (1.1-1.8); Alkaline Phosphatase 171 U/L (45-117); Anion Gap 12.9 mEq/L (5.0-15.0); BUN Blood Urea Nitrogen 20 mg/dL (7-18); Bicarbonate 23 mEq/L (21-32); Bilirubin Total 0.4 mg/dL (0.2-1.0); Globulin 3.9 g/dL (2.3-3.5); Glomerular Filtration Rate 11 ml/min (=/>90); Glucose Level 100 mg/dL (74-106); Lipase 71 U/L (13-75); Magnesium 1.9 mg/dL (1.6-2.4); Potassium 3.9 mEq/L (3.5-5.1); Protein, Total 6.6 g/dL (6.4-8.2); Sodium Level 137 mEq/L (136-145); Troponin High Sensitivity 22.5 pg/mL (<58.9)
[2024-06-16 15:17] LABS: Bilirubin Direct < 0.2 mg/dL (0-0.2); Bilirubin Indirect, Calculated 0.2 mg/dL (0.2-0.8)
[2024-06-16] MEDS ORDERED: ONDANSETRON 4 MG/2 ML VIAL ONE (16:01)
--- NOTE | 2024-06-16 17:00 | ER ---
Nurse's Notes [facility] Name: Marcello Mcrae Jr Age: 63 yrs Sex: Male : 1960 Arrival Date: 06/16/2024 Time: 14:00 Bed 4 Private MD: Diagnosis: Chest pain, unspecified Presentation: 06/16 14:09 Chief complaint: Patient states: Pt collapsed to floor after entering ER lobby, no LOC, ph assisted into wheelchair by technical maintenance technician and taken to trauma 4, pt reports headache, ear pain and chest pain that started 3 hours ago, hx of dialysis. Coronavirus screen: Vaccine status: Patient reports receiving the 2nd dose of the covid vaccine. Ebola Screen: No symptoms or risks identified at this time. Initial Sepsis Screen: Does the patient meet any 2 criteria? No. Patient's initial sepsis screen is negative. Does the patient have a suspected source of infection? No. Patient's initial sepsis screen is negative. Risk Assessment: Do you want to hurt yourself or someone else? Patient reports no desire to harm self or others. Onset of symptoms was June 16, 2024. 14:09 Method Of Arrival: Wheelchair 14:09 Acuity: RITO 2 ph Triage Assessment: 14:15 General: Appears in no apparent distress. uncomfortable, Behavior is cooperative, ph anxious. Pain: Complains of pain in right ear, left ear and chest. Neuro: Level of Consciousness is awake, alert, obeys commands, Oriented to person, place, time, situation. Cardiovascular: Reports chest pain. Respiratory: Airway is patent Respiratory effort is even, unlabored. Derm: Skin is pink, warm \T\ dry. Musculoskeletal: Circulation, motion, and sensation intact. Range of motion: intact in all extremities. Historical: - Allergies: 14:12 Codeine; ph 14:12 Morphine; ph - Home Meds: 14:12 buspirone 10 mg Oral tablet 1 tab nightly [Active]; carvedilol 3.125 mg Oral tablet 1 ph tab every 12 hours [Active]; Flomax 0.4 mg Oral capsule 1 cap nightly [Active]; losartan 50 mg Oral tablet 1 tab daily [Active]; Protonix 40 mg Oral tablet 1 tab daily [Active]; sertraline 25 mg Oral tablet 1 tab daily [Active]; Unknown [Active]; - PMHx: 14:12 Dialysis pt; End stage renal disease; ph - PSHx: 14:12 Peritoneal Catheter (en); ph - Immunization history:: Adult Immunizations unknown. - Infectious Disease History:: Denies. - Family history:: not pertinent. - Social history:: Smoking status: Patient reports the use of cigarette tobacco products, smokes one-half pack cigarettes per day. Screenin:55 [facility] ED Fall Risk Assessment (Adult) History of falling in the last 3 months, ph including since admission Yes- single mechanical fall (1 pt) Confusion or Disorientation No (0 pts) Intoxicated or Sedated No (0 pts) Impaired Gait No (0 pts) Mobility Assist Device Used No (0 pt) Altered Elimination No (0 pt) Score/Fall Risk Level 0 - 2 = Low Risk Oriented to surroundings, Maintained a safe environment, Hourly rounding (assess needs \T\ fall precautionary measures) done. Abuse screen: Denies threats or abuse. Denies injuries from another. Nutritional screening: No deficits noted. Tuberculosis screening: No symptoms or risk factors identified. Assessment: 14:57 General: see triage assessment. ph Vital Signs: 14:09 BP 215 / 80; Pulse 79; Resp 18; Temp 97.9; Pulse Ox 100% on R/A; ph 14:57 BP 209 / 98; Pulse 74; Resp 18; Pulse Ox 100% on R/A; ph ED Course: 14:06 Patient arrived in ED. ph 14:10 Yung Abrams MD is Attending Physician. rt 14:10 Initial lab(s) drawn, by ED staff, sent to lab. EKG done, by ED staff, reviewed by Yung Abrams MD. Inserted saline lock: 18 gauge in right antecubital area, using aseptic technique. Blood collected. Flushed with 10 mL NS. Patient maintains SpO2 saturation greater than 95% on room air. 14:12 Triage completed. ph 14:13 Arm band placed on Patient placed in an exam room, on a stretcher, on threat monitoring analyst, ph on pulse oximetry. EKG completed in triage. Results shown to MD. 14:37 CT Aorta for Dissection In Process Unspecified. EDMS 14:38 CT Head Brain wo Cont In Process Unspecified. EDMS 14:54 Jackie Tobar, RN is Primary Nurse. ph 14:56 Patient has correct armband on for positive identification. Placed in gown. Bed in low ph position. Call light in reach. Side rails up X2. Client placed on continuous cardiac and pulse oximetry monitoring. NIBP monitoring applied. monitor and storage bin tender on. Door closed. Noise minimized. Lights dimmed. Warm blanket given. Pillow given. 16:59 Gilmar Crandall is Hospitalizing Provider. rt 18:18 CT Neck Angio In Process Unspecified. EDMS 18:18 Head angio In Process Unspecified. EDMS Administered Medications: 14:20 Drug: fentaNYL (PF) IVP 100 mcg IVP once Route: IVP; Site: right antecubital; ph 16:14 Drug: fentaNYL (PF) IVP 50 mcg IVP once Route: IVP; Site: right antecubital; ph 16:14 Drug: Ondansetron IVP 4 mg IVP once; over 2 minutes Route: IVP; Site: right antecubital;ph Medication: 16:14 VIS not applicable for this client. ph Outcome: 17:00 Decision to Hospitalize by Provider. rt 18:33 Discharge ordered by . rt 18:39 Patient left the ED. hb Signatures: Dispatcher [employer] Jackie De Paz RN RN ph Heidy Nelson RN RN Yung Abrams MD MD rt
--- NOTE | 2024-06-16 17:00 | EDPHYS ---
Physician Documentation [facility] Name: Marcello Mcrae Jr Age: 63 yrs Sex: Male : 1960 Arrival Date: 06/16/2024 Time: 14:00 Bed 4 Private MD: ED Physician Yung Abrams HPI: 06/16 18:46 This 63 yrs old Male presents to ER via Wheelchair with complaints of Chest Pain, Ear rt Pain, Headache. 18:46 Patient presents to the ED with chest pain, abdominal pain. Is been present for several rt days per the patient's report. Reportedly collapsed in the waiting room. He also states that he has had a bilateral hearing loss over the past 3 weeks. Denies other acute complaints at this time, symptoms are moderate in severity, no other aggravating or alleviating factors.. Historical: - Allergies: 14:12 Codeine; ph 14:12 Morphine; ph - Home Meds: 14:12 buspirone 10 mg Oral tablet 1 tab nightly [Active]; carvedilol 3.125 mg Oral tablet 1 ph tab every 12 hours [Active]; Flomax 0.4 mg Oral capsule 1 cap nightly [Active]; losartan 50 mg Oral tablet 1 tab daily [Active]; Protonix 40 mg Oral tablet 1 tab daily [Active]; sertraline 25 mg Oral tablet 1 tab daily [Active]; Unknown [Active]; - PMHx: 14:12 Dialysis pt; End stage renal disease; ph - PSHx: 14:12 Peritoneal Catheter (en); ph - Immunization history:: Adult Immunizations unknown. - Infectious Disease History:: Denies. - Family history:: not pertinent. - Social history:: Smoking status: Patient reports the use of cigarette tobacco products, smokes one-half pack cigarettes per day. ROS: 18:46 Constitutional: Negative for fever, chills, and weight loss, Respiratory: Negative for rt shortness of breath, cough, wheezing, and pleuritic chest pain, MS/Extremity: Negative for injury and deformity, Skin: Negative for injury, rash, and discoloration, Neuro: Negative for headache, weakness, numbness, tingling, and seizure, 18:46 Cardiovascular: Positive for chest pain, Negative for orthopnea, 18:46 Abdomen/GI: Positive for abdominal pain, nausea, Exam: 18:46 Constitutional: This is a well developed, well nourished patient who is awake, alert, rt and in no acute distress. Head/Face: Normocephalic, atraumatic. Chest/axilla: Normal chest wall appearance and motion. Nontender with no deformity. No lesions are appreciated. Cardiovascular: Regular rate and rhythm with a normal S1 and S2. No gallops, murmurs, or rubs. Normal PMI, no JVD. No pulse deficits. Respiratory: Lungs have equal breath sounds bilaterally, clear to auscultation and percussion. No rales, rhonchi or wheezes noted. No increased work of breathing, no retractions or nasal flaring. Abdomen/GI: Soft, non-tender, with normal bowel sounds. No distension or tympany. No guarding or rebound. No evidence of tenderness throughout. Skin: Warm, dry with normal turgor. Normal color with no rashes, no lesions, and no evidence of cellulitis. MS/ Extremity: Pulses equal, no cyanosis. Neurovascular intact. Full, normal range of motion. 18:46 ECG was reviewed by the Attending Physician. Vital Signs: 14:09 BP 215 / 80; Pulse 79; Resp 18; Temp 97.9; Pulse Ox 100% on R/A; ph 14:57 BP 209 / 98; Pulse 74; Resp 18; Pulse Ox 100% on R/A; ph MDM: 14:10 Patient medically screened. rt 18:46 Differential diagnosis: ACS, aortic dissection, pneumonia, pancreatitis. Data reviewed: rt vital signs, nurses notes. Consideration of Admission/Observation Patient was admitted/placed on observation. I discussed admission with the patient, consulted hospitalist for admission. They requested CT angiogram to be performed prior to admission. These were ordered, performed, however, patient elected to leave AGAINST MEDICAL ADVICE prior to the results or before a repeat troponin could be performed.. Independent interpretation of the following test(s) in the Emergency Department CT Scan: My interpretation is No aortic dissection seen on interpretation of CT scan images. Test considered but Not performed: X-ray: CT scans obtained, x-rays redundant. Care significantly affected by the following chronic conditions: Chronic Kidney Disease. Counseling: I had a detailed discussion with the patient and/or guardian regarding the historical points, exam findings, and any diagnostic results supporting the discharge/admit diagnosis, lab results, radiology results. Refusal of service: The patient/guardian displays adequate decision making capability and despite a detailed discussion of alternatives, benefits, risks, and consequences refuses: Admission to the hospital for further work-up and treatment, CT Scan, all lab tests. 06/16 14:13 Order name: Basic Metabolic Panel; Complete Time: 15:17 rt 06/16 14:13 Order name: CBC with Diff; Complete Time: 14:57 rt 06/16 14:13 Order name: LFT's; Complete Time: 15:17 rt 06/16 14:13 Order name: Magnesium; Complete Time: 15:17 rt 06/16 14:13 Order name: Troponin HS; Complete Time: 15:17 rt 06/16 14:13 Order name: Lipase; Complete Time: 15:17 rt 06/16 14:13 Order name: CT Aorta for Dissection; Complete Time: 14:57 rt 06/16 14:13 Order name: CT Head Brain wo Cont; Complete Time: 14:57 rt 06/16 17:16 Order name: CT Neck Angio; Complete Time: 18:39 rt 06/16 17:35 Order name: Head angio; Complete Time: 18:38 EDMS 06/16 14:13 Order name: EKG; Complete Time: 14:13 rt 06/16 14:13 Order name: Cardiac monitoring; Complete Time: 14:13 rt 06/16 14:13 Order name: EKG - Nurse/Tech; Complete Time: 14:13 rt 06/16 14:13 Order name: IV Saline Lock; Complete Time: 14:13 rt 06/16 14:13 Order name: Labs collected and sent; Complete Time: 14:13 rt 06/16 14:13 Order name: O2 Per Protocol; Complete Time: 14:13 rt 06/16 14:13 Order name: O2 Sat Monitoring; Complete Time: 14:13 rt EC:46 Rate is 76 beats/min. Rhythm is regular, Normal Sinus Rhythm with No ectopy. QRS rt interval is normal. QT interval is normal. No Q waves. Clinical impression: NSR w/ Non-specific ST/T Changes. Administered Medications: 14:20 Drug: fentaNYL (PF) IVP 100 mcg IVP once Route: IVP; Site: right antecubital; ph 16:14 Drug: fentaNYL (PF) IVP 50 mcg IVP once Route: IVP; Site: right antecubital; ph 16:14 Drug: Ondansetron IVP 4 mg IVP once; over 2 minutes Route: IVP; Site: right antecubital;ph Disposition Summary: 06/16/24 18:33 Discharge Ordered Notes: Location: Home(06/16/24 18:33) rt Problem: new(06/16/24 18:33) rt Symptoms: have improved(06/16/24 18:33) rt Condition: Stable(06/16/24 18:33) rt Diagnosis - Chest pain, unspecified(06/16/24 18:33) rt Followup: rt - With: Private Physician - When: 2 - 3 days - Reason: Discharge Instructions: - Discharge Summary Sheet rt - Nonspecific Chest Pain, Adult rt Forms: - Medication Reconciliation Form rt - Antibiotic Education rt - Prescription Opioid Use rt - Patient Portal Instructions rt - Leadership Thank You Letter rt Signatures: Dispatcher [employer] EDJackie Trammell RN RN ph Yung Abrams MD MD rt Corrections: (The following items were deleted from the chart) 14:13 14:13 BASIC METABOLIC PANEL+C.LAB.BRZ ordered. EDMS EDMS 14:13 14:13 CBC+H.LAB.BRZ ordered. EDMS EDMS 14:13 14:13 HEPATIC FUNCTION+C.LAB.BRZ ordered. EDMS EDMS 14:13 14:13 MAGNESIUM+C.LAB.BRZ ordered. EDMS EDMS 14:13 14:13 Troponin High Sensitivity+C.LAB.BRZ ordered. EDMS EDMS 14:13 14:13 LIPASE+C.LAB.BRZ ordered. EDMS EDMS 18:05 17:00 Observation rt rt 18: 17:00 Gilmar Crandall rt rt 18: 17:00 Telemetry/MedSurg (observation) rt rt 18:05 17:00 Stable rt rt 18:05 17:00 new rt rt 18: 17:00 are unchanged rt rt 18: 17:00 Standard rt rt 18:05 17:00 rt rt 18:05 17:00 Chest pain, unspecified rt rt
--- NOTE | 2024-06-16 18:36 | RAD REPORT ---
EXAM DESCRIPTION: CT - Head angio - 06/16/2024 6:16 pm CLINICAL HISTORY: HEARING LOSS Headache, drowsiness COMPARISON: Head Brain Wo Cont dated 06/16/2024; Head Brain Wo Cont dated 06/16/2022 TECHNIQUE: CT angiography of the head was performed with MIPs. All CT scans are performed using dose optimization technique as appropriate and may include automated exposure control or mA/KV adjustment according to patient size. FINDINGS: No evidence of large vessel occlusion. No evidence of aneurysm is detected. No flow-limiti ng stenosis or vascular malformation identified. Moderate hard plaque is seen both vertebral arteries, greater on the left. Forward flow is seen in tomer th vertebral arteries. The visualized dural venous sinuses are patent. IMPRESSION: No significant flow abnormality is detected. Moderate hard plaquing involving both V1 segments, greater the left resulting moderate grade stenosis .
--- NOTE | 2024-06-16 18:38 | RAD REPORT ---
EXAM DESCRIPTION: CT - Neck Angio - 06/16/2024 6:16 pm CLINICAL HISTORY: hearing loss Drowsiness, headache COMPARISON: Head C Spine Mpr Wo Con dated 04/20/2024 TECHNIQUE: CT angiography of the neck vessels was performed with MIPs. All CT scans are performed using dose optimization technique as appropriate and may include automated exposure control or mA/KV adjustment according to patient size. FINDINGS: Small right pleural effusion. A left aortic arch is identified with normal three vessel configuration of the great vessels. Mild hard plaquing is seen along the mid common carotid arteries bilaterally without significant sten osis. Large volume of hard plaque is present left carotid bulb resulting severe stenosis estimated at 95-99 %. Moderate hard plaque right carotid bulb results in 70% stenosis on the right. Normal flow is seen within both vertebral arteries. Moderate hard plaque both V1 segments seen. IMPRESSION: Severe stenosis left carotid bulb is present. Moderate to severe stenosis right carotid bulb is present. NASCET criteria used. Mild 0-49% stenosis Moderate 50-69% stenosis Severe 70-99% stenosis
[2024-06-16 19:03] VITALS: TEMP 97.9; O2SAT 100
[2024-06-16 19:05] VITALS: BP 209/98
--- NOTE | 2024-06-18 16:59 | EKG ---
Test Date: 2024-06-16 Test Time: 14:04:52 Print Project Manager: CRESCENCIO MEASUREMENT RESULTS: Intervals: Rate: 76 GA: 144 QRSD: 94 QT: 438 QTc: 492 [place]: P: 71 GA: 144 QRS: -35 T: 28 INTERPRETIVE STATEMENTS: Sinus bradycardia Possible Left atrial enlargement Left axis deviation Left ventricular hypertrophy with repolarization abnormality Prolonged QT, may be secondary to QRS abnormality Compared to ECG 05/09/2024 08:21:22 Left-axis deviation now present Left ventricular hypertrophy now present Early repolarization now present Prolonged QT interval now present Sinus rhythm no longer present Electronically Signed On 06-18-24 16:53:53 CDT by Peter Grover
== END 2024-06-16 18:39 | disposition home or self-care (01) ==
LOC: ER 14:00
DX: R07.9 Chest pain, unspecified (principal); R10.9 Unspecified abdominal pain; F17.210 Nicotine dependence, cigarettes, uncomplicated; H91.93 Unspecified hearing loss, bilateral; N18.6 End stage renal disease; Z88.5 Allergy status to narcotic agent; Z99.2 Dependence on renal dialysis
CPT/HCPCS: 93005; 85025; 80048; 36415; 83735; 80076; 84484; 83690; 70450; 71275; 70496; 70498; 74175; 96375; 96374; 99285; Q9967 ×2; J3010 ×2; J2405

== ENCOUNTER 2024-07-26 22:22 | Inpatient (IN) | payer OTHER ==
[2024-07-26] MEDS ORDERED: ASPIRIN 81 MG CHEWABLE TABLET ONE (22:47)
[2024-07-26] MEDS ORDERED: FENTANYL CITR 100 MCG/2 ML ONE (22:47)
[2024-07-26] MEDS ORDERED: ONDANSETRON 4 MG/2 ML VIAL ONE (22:47)
[2024-07-26] MEDS ORDERED: IPRATROPIUM BROM 0.5MG/2.5ML ONE (22:47)
[2024-07-26] MEDS ORDERED: ALBUTEROL 2.5 MG/3 ML NEB SOL ONE (22:47)
[2024-07-26 22:53] LABS: Absolute Eosinophils 0.1 K/uL (0-0.5); Absolute Lymphocytes (CBC) 0.7 K/uL (0.7-4.9); Absolute Monocytes 0.7 K/uL (0.1-1.3); Absolute Neutrophil 10.1 K/uL (1.8-8.0); Basophils % 0.2 % (0-1.3); Eosinophils % 0.8 % (0-4.4); Hematocrit 36.5 % (39.6-49.0); Hemoglobin 11.7 g/dL (13.6-17.9); Lymphocytes % 6.2 % (15.3-44.8); MCH 26.9 pg (27.0-35.0); MCHC 32.1 g/dL (32.0-36.0); MCV 83.7 fL (80-100); MPV 7.2 fL (7.6-11.3); Monocytes % 5.8 % (3.3-12.3); Platelets 232 thou/uL (152-406); RBC Red Blood Cell Count 4.36 M/uL (4.33-5.43); Red Cell Distribution Width 20.6 % (12.1-15.2)
[2024-07-26 22:54] LABS: PT Prothrombin Time 14.8 SECONDS (9.4-12.5); Protime INR 1.33
[2024-07-26 23:29] LABS: Band Neutrophils 13 % (0-1); Differential Total Cells Count 100; Eosinophils 4 % (0-3); Lymphocytes 3 % (15-42); Monocytes 3 % (0-10); Reactive Lymphocytes 2 %; Segmented Neutrophils 75 % (40-80)
[2024-07-26 23:34] LABS: Albumin 2.8 g/dL (3.4-5.0); Albumin/Globulin Ratio 0.7 (1.1-1.8); Anion Gap 11.6 mEq/L (5.0-15.0); Bilirubin Direct 0.2 mg/dL (0-0.2); Bilirubin Indirect, Calculated 0.3 mg/dL (0.2-0.8); Bilirubin Total 0.5 mg/dL (0.2-1.0); Globulin 4.1 g/dL (2.3-3.5); Magnesium 2.1 mg/dL (1.6-2.4); Potassium 4.6 mEq/L (3.5-5.1); Protein, Total 6.9 g/dL (6.4-8.2); Troponin High Sensitivity 39.4 pg/mL (<58.9)
[2024-07-26 23:35] LABS: Anisocytosis 1+; Blood Morphology Comment NOTED (NOT SEEN); Hypochromasia 1+; Platelet Estimate ADEQ
[2024-07-27] MEDS ORDERED: NA CHLORIDE 0.9% 100 ML ONE (00:10)
[2024-07-27] MEDS ORDERED: PIPERACIL/TAZO 2.25 GM VIAL IV ONE (00:10)
--- NOTE | 2024-07-27 00:30 | RAD REPORT ---
PROCEDURE: XR Chest, 1 View CLINICAL INDICATION: The patient is 63 years old and is Male; Chest pain, SOB. TECHNIQUE: Frontal view of the chest. COMPARISON: CT Chest Abdomen Pelvis 06/20/2024 and XR Chest 06/20/2024. FINDINGS: LUNGS: Medial bibasilar airspace opacities, slightly increased in the left lung base from prior exa m, favoring atelectasis. No new focal consolidation. PLEURAL SPACE: No appreciable pleural effusion or pneumothorax. MEDIASTINUM: Stable cardiomediastinal silhouette. BONES/JOINTS: Degenerative changes of the bilateral shoulders. VASCULATURE: Calcified atherosclerosis of the thoracic aorta. TUBES, LINES AND DEVICES: Right IJ approach vascular catheter redemonstrated, with tip terminating in the proximal SVC. IMPRESSION: Medial bibasilar airspace opacities, slightly increased in the left lung base from prior exam, favori ng atelectasis, though could not exclude basilar pneumonia or aspiration pneumonitis. Consider further evaluation by additional lateral view. Electronically signed by: Real Zuniga MD 07/27/2024 12:22 AM CDT Due to temporary technical issues with the PACS/[employer] reporting system, reports are being deana d by the in-house radiologist without review as a courtesy to ensure prompt reporting the interpreting radiologist is fully responsible for the content of the report. Transcribed Date/Time: 07/27/2024 12:29 AM
--- NOTE | 2024-07-27 00:38 | ER ---
Nurse's Notes [facility] Name: Marcello Mcrae Jr Age: 63 yrs Sex: Male : 1960 Arrival Date: 07/26/2024 Time: 22:22 Bed 14 Private MD: Diagnosis: Pneumonia, unspecified organism;COPD/ Chronic obstructive pulmonary disease with (acute) exacerbation Presentation: 07/26 22:28 Chief complaint: EMS states: Chest pain with shortness of breath. Coronavirus screen: vc1 Client denies travel out of the [place] in the last 14 days. congestion, cough unrelated to allergies, shortness of breath, vomiting. Client presents with at least one sign or symptom that may indicate coronavirus-19. Ebola Screen: Patient negative for fever greater than or equal to 101.5 degrees Fahrenheit, and additional compatible Ebola Virus Disease symptoms Patient denies exposure to infectious person. Patient denies travel to an Ebola-affected area in the 21 days before illness onset. No symptoms or risks identified at this time. Initial Sepsis Screen: Does the patient meet any 2 criteria? No. Patient's initial sepsis screen is negative. Does the patient have a suspected source of infection? No. Patient's initial sepsis screen is negative. Risk Assessment: Do you want to hurt yourself or someone else? Patient reports no desire to harm self or others. Onset of symptoms was July 26, 2024. 22:28 Method Of Arrival: EMS: [facility] 1 22:28 Acuity: RITO 3 vc1 22:30 Care prior to arrival: Medication(s) given: Albuterol Neb x 1, Atrovent Neb x 1, vc1 Solu-Medrol 125 mg, Zofran 4 mg, Fentanyl 50 mcg. IV initiated. 18 GA, in the right antecubital area, Med neb given. Oxygen administered. via nasal cannula. Activity prior to arrival: vomiting. Mechanism of Injury: No Mechanism of Injury. Transition of care: patient was not received from another setting of care. 23:[address] Reddy. vc1 Triage Assessment: 22:36 General: Appears in no apparent distress. uncomfortable, slender, unkempt, well vc1 developed, Behavior is cooperative, anxious. Pain: Complains of pain in chest Pain does not radiate. Pain currently is 4 out of 10 on a pain scale. at worst was 9 out of 10 on a pain scale. Quality of pain is described as burning, Pain began suddenly, Is continuous. EENT: No signs and/or symptoms were reported regarding the EENT system. Reports Hard of hearing. Neuro: Level of Consciousness is awake, alert, obeys commands, Oriented to person, place, time, situation, Appropriate for age. Cardiovascular: Heart tones S1 S2 present Capillary refill < 3 seconds Patient's skin is warm and dry. Rhythm is sinus rhythm with unifocal PVCs. Respiratory: Reports shortness of breath at rest Airway is patent Respiratory effort is even, unlabored, Respiratory pattern is regular, symmetrical, Breath sounds with wheezes bilaterally. GI: No deficits noted. No signs and/or symptoms were reported involving the gastrointestinal system. : Reports dialysis patient. Derm: Skin is intact, is healthy with good turgor, Skin is dry, Skin is normal, Skin temperature is warm. Musculoskeletal: Circulation, motion, and sensation intact. Range of motion: intact in all extremities. Historical: - Allergies: 22:33 Codeine; vc1 22:33 Morphine; vc1 - Home Meds: 23:19 carvedilol 12.5 mg oral tablet 1 tab every 12 hours [Active]; sertraline 25 mg Oral vc1 tablet 1 tab daily [Active]; Bumex Oral 2 mg twice a day [Active]; amlodipine 5 mg tablet 2 times per day [Active]; Flomax 0.4 mg Oral capsule 1 cap nightly [Active]; losartan 50 mg Oral tablet 1 tab daily [Active]; Protonix 40 mg Oral tablet 1 tab daily [Active]; buspirone 10 mg Oral tablet 1 tab nightly [Active]; fentanyl 50 mcg/hr transdermal patch, transdermal 72 hours 1 patch every 72 hours [Active]; hydrocodone-acetaminophen 10-325 mg Oral tablet every 6 hours [Active]; - PMHx: 22:33 Dialysis pt; End stage renal disease; vc1 - PSHx: 22:33 Peritoneal Catheter; vc1 22:33 left upper arm fistula; Right chest HD cath; vc1 - Immunization history:: Adult Immunizations unknown. - Infectious Disease History:: Denies. - Social history:: Smoking status: Patient reports the use of cigarette tobacco products, smokes 0.25 packs per day. Screenin:34 [facility] ED Fall Risk Assessment (Adult) History of falling in the last 3 months, vc1 including since admission No falls in past 3 months (0 pts) Confusion or Disorientation No (0 pts) Intoxicated or Sedated No (0 pts) Impaired Gait No (0 pts) Mobility Assist Device Used No (0 pt) Altered Elimination No (0 pt) Score/Fall Risk Level 0 - 2 = Low Risk Oriented to surroundings, Maintained a safe environment, Educated pt \T\ family on fall prevention, incl call for assistance when getting out of bed. Abuse screen: Denies threats or abuse. Nutritional screening: No deficits noted. Tuberculosis screening: No symptoms or risk factors identified. Assessment: 23:18 General: , karen mcrae [id number]. vc1 07/27 00:04 Reassessment: Patient and/or family updated on plan of care and expected duration. Pain vc1 level reassessed. Patient is alert, oriented x 3, equal unlabored respirations, skin warm/dry/pink. Patient states symptoms have improved. 02:00 Reassessment: Patient appears in no apparent distress at this time. No changes from vc1 previously documented assessment. Patient and/or family updated on plan of care and expected duration. Pain level reassessed. pt sleeping comfortably. 02:30 General: Appears in no apparent distress. comfortable. rg5 02:30 Neuro: Level of Consciousness is awake, alert, obeys commands, Oriented to person, rg5 place, time. Cardiovascular: Patient's skin is warm and dry. Respiratory: Airway is patent Trachea midline Respiratory effort is even, unlabored, Respiratory pattern is symmetrical, agonal. GI: Abdomen is flat, non-distended, Bowel sounds present X 4 quads. Abd is soft and non tender. : No signs and/or symptoms were reported regarding the genitourinary system. EENT: No deficits noted. EENT: No deficits noted. No signs and/or symptoms were reported regarding the EENT system. Derm: Skin is intact, Skin is dry, Skin is normal. Musculoskeletal: Circulation, motion, and sensation intact. Range of motion: intact in all extremities. 03:00 Pain: Denies pain. rg5 04:41 Reassessment: No changes from previously documented assessment. Patient and/or family rg5 updated on plan of care and expected duration. Pain level reassessed. Patient is alert, oriented x 3, equal unlabored respirations, skin warm/dry/pink. 05:00 Reassessment: Patient and/or family updated on plan of care and expected duration. Pain rg5 level reassessed. Patient is alert, oriented x 3, equal unlabored respirations, skin warm/dry/pink. 06:01 Reassessment: No changes from previously documented assessment. Patient and/or family rg5 updated on plan of care and expected duration. Pain level reassessed. Patient is alert, oriented x 3, equal unlabored respirations, skin warm/dry/pink. 07:05 General: Appears in no apparent distress. Behavior is cooperative, anxious. Pain: db Complains of pain in chest. Respiratory: Airway is patent Respiratory effort is even, unlabored, Respiratory pattern is regular, symmetrical, Breath sounds are coarse bilaterally. 07:26 Reassessment: Patient appears in no apparent distress at this time. Patient and/or db family updated on plan of care and expected duration. Pain level reassessed. Patient is alert, oriented x 3, equal unlabored respirations, skin warm/dry/pink. Vital Signs: 07/26 22:28 BP 158 / 81; Pulse 80; Resp 14; Temp 99.2; Pulse Ox 93% ; Weight 63.5 kg; Height 5 ft. vc1 10 in. ; Pain 4/10; 23:15 BP 150 / 95; Pulse 78; Resp 16; Pulse Ox 100% ; vc1 07/27 00:00 BP 147 / 79; Pulse 81; Resp 17; Pulse Ox 97% on 2 lpm NC; vc1 01:00 BP 144 / 79; Pulse 72; Resp 14; Pulse Ox 98% ; vc1 02:00 BP 148 / 77; Pulse 77; Resp 13; Pulse Ox 99% ; vc1 03:30 BP 169 / 89; Pulse 75; Resp 17; Temp 97.8; Pulse Ox 98% on 2 lpm NC; rg5 04:39 BP 146 / 79; Pulse 77; Resp 17; Pulse Ox 99% on 2 lpm NC; Pain 0/10; rg5 05:49 BP 145 / 77; Pulse 73; Resp 16; Temp 97.7; Pulse Ox 99% on 2 lpm NC; Pain 0/10; rg5 06:23 BP 112 / 62; Pulse 100; Resp 19; Pulse Ox 98% on R/A; rg5 07:00 BP 148 / 84; Pulse 71; Resp 20; Temp 97.9; Pulse Ox 99% on 2 lpm NC; db 07/26 22:28 Body Mass Index 20.09 (63.50 kg, 177.8 cm) vc1 07/26 22:28 Pain Scale: Adult vc1 04:39 Pain Scale: Adult rg5 05:49 Pain Scale: Adult rg5 ED Course: 07/26 22:24 Patient arrived in ED. jj6 22:28 Charlette Thompson, RN is Primary Nurse. vc1 22:30 Triage completed. vc1 22:31 Adalid [place] PA is PHCP. cp 22:33 Ean Vila MD is Attending Physician. cp 22:34 Arm band placed on right wrist. vc1 22:35 Patient has correct armband on for positive identification. Bed in low position. Call vc1 light in reach. gambling monitor on. Pulse ox on. NIBP on. 22:35 Maintain EMS IV. Dressing intact. Good blood return noted. Site clean \T\ dry. Gauge \T\ vc 1 site: 18 G RAC. Flushed with 10 mL NS. Oxygen administration via nasal cannula \T\ 2L/min. 22:50 Basic Metabolic Panel Sent. vc1 22:50 CBC with Diff Sent. vc1 22:50 LFT's Sent. vc1 22:50 Magnesium Sent. vc1 22:50 NT PRO-BNP Sent. vc1 22:50 PT-INR Sent. vc1 22:50 Troponin HS Sent. vc1 22:56 XRAY Chest (1 view) In Process Unspecified. EDMS 07/27 00:35 Charlie Cary MD is Hospitalizing Provider. cp 02:00 No provider procedures requiring assistance completed. Patient admitted, IV remains in vc1 place. 02:24 Provided Education on: fall risk. vc1 06:01 Resting quietly. Appears to be sleeping. Awaiting bed assignment. rg5 07:55 Primary Nurse role handed off by Charlette Thompson, NIDA eb Administered Medications: 07/26 22:42 CANCELLED (Physician Discretion): morphineor iv 4 mg IVP once over 4 mins cp 22:59 Drug: Aspirin PO Chewable Tablet 324 mg PO once; 81 mg tablets x 4 Route: PO; vc1 07/27 00:05 Follow up: Response: No adverse reaction; Marked relief of symptoms vc1 07/26 22:59 Drug: Ondansetron IVP 4 mg IVP once; over 2 minutes Route: IVP; Site: right antecubital;vc1 07/27 00:05 Follow up: Response: No adverse reaction; Marked relief of symptoms vc1 07/26 22:59 Drug: DuoNeb Nebulize (2.5 mg - 0.5 mg) 3 ml Nebulizer once Route: Nebulizer; vc1 07/27 00:05 Follow up: Response: No adverse reaction; Marked relief of symptoms vc1 07/26 22:59 Drug: fentaNYL (PF) IVP 50 mcg IVP once Route: IVP; Site: right antecubital; vc1 07/27 00:04 Follow up: Response: No adverse reaction; Marked relief of symptoms vc1 00:36 Drug: Piperacillin-Tazobactam IVPB 2.25 grams IVPB once over 60 mins; (mix in NS 100 vc1 mL) Route: IVPB; Infused Over: 60 mins; Site: right antecubital; 01:36 Follow up: IV Status: Completed infusion; IV Intake: 100ml vc1 04:45 Drug: vancoMYCIN IVPB 1 grams IVPB once over 2 hrs Route: IVPB; Infused Over: 2 hrs; rg5 Site: right antecubital; 06:24 Follow up: Response: No adverse reaction; IV Status: Completed infusion; IV Intake: rg5 250ml 07:07 Drug: fentaNYL (PF) IVP 25 mcg IVP once Route: IVP; Site: right antecubital; rg5 07:22 Drug: Ativan IVP 0.5 mg IVP once Route: IVP; Site: right antecubital; db Medication: 07/26 22:35 VIS not applicable for this client. vc1 Intake: 07/27 01:36 IV: 100ml; Total: 100ml. vc1 06:24 IV: 250ml; Total: 350ml. rg5 Outcome: 00:36 Decision to Hospitalize by Provider. cp 02:00 Admitted to ER Hold. Please see [facility] for further documentation. vc1 02:00 Condition: good 02:00 Instructed on the need for admit, benefits of quitting smoking, vc1 08:37 Patient left the ED. eb Signatures: Dispatcher [employer] EDMS Page, Adalid, PA PA cp Ricardo, Kristen eb Mee, Sonal [id number] Charlette Thompson RN RN vc1 Kiya Drake RN RN db Rudy Tracy RN RN rg5 Corrections: (The following items were deleted from the chart) 07/26 22:34 22:33 PSHx: left upper arm fistula (Peritoneal Catheter); vc1 vc1 :34 22:33 PSHx: Right chest HD cath (Peritoneal Catheter); vc1 vc1
--- NOTE | 2024-07-27 00:38 | EDPHYS ---
Physician Documentation [facility] Name: Marcello Mcrae Jr Age: 63 yrs Sex: Male : 1960 Arrival Date: 07/26/2024 Time: 22:22 Bed 14 Private MD: ED Physician Ean Vila HPI: 07/26 22:35 This 63 yrs old Male presents to ER via EMS with complaints of Chest Pain, cp Shortness Of Breath. 22:35 The patient or guardian reports chest pain that is located primarily in the anterior cp chest wall. 22:35 Onset: today. Associated signs and symptoms: Pertinent positives: cough, Pertinent cp negatives: abdominal pain, diaphoresis, lower extremity pain, lower extremity swelling, vomiting, fever. Duration: The patient or guardian reports a single episode, that is still ongoing, and worsening. 22:35 Severity of pain: in the emergency department the pain is unchanged despite EMS cp interventions. Historical: - Allergies: 22:33 Codeine; vc1 22:33 Morphine; vc1 - Home Meds: 23:19 carvedilol 12.5 mg oral tablet 1 tab every 12 hours [Active]; sertraline 25 mg Oral vc1 tablet 1 tab daily [Active]; Bumex Oral 2 mg twice a day [Active]; amlodipine 5 mg tablet 2 times per day [Active]; Flomax 0.4 mg Oral capsule 1 cap nightly [Active]; losartan 50 mg Oral tablet 1 tab daily [Active]; Protonix 40 mg Oral tablet 1 tab daily [Active]; buspirone 10 mg Oral tablet 1 tab nightly [Active]; fentanyl 50 mcg/hr transdermal patch, transdermal 72 hours 1 patch every 72 hours [Active]; hydrocodone-acetaminophen 10-325 mg Oral tablet every 6 hours [Active]; - PMHx: 22:33 Dialysis pt; End stage renal disease; vc1 - PSHx: 22:33 Peritoneal Catheter; vc1 22:33 left upper arm fistula; Right chest HD cath; vc1 - Immunization history:: Adult Immunizations unknown. - Infectious Disease History:: Denies. - Social history:: Smoking status: Patient reports the use of cigarette tobacco products, smokes 0.25 packs per day. ROS: 22:40 Constitutional: Negative for fever, poor PO intake, cp 22:40 Eyes: Negative for injury, pain, redness, and discharge, cp 22:40 Cardiovascular: Positive for chest pain, 22:40 Respiratory: Positive for cough, shortness of breath, at rest. 22:40 Abdomen/GI: Positive for nausea, Negative for vomiting, diarrhea, constipation, 22:40 Neuro: Negative for altered mental status, dizziness, headache, weakness, 22:40 All other systems are negative, Exam: 22:35 ECG was reviewed by the Attending Physician. cp 22:45 Constitutional: The patient appears in no acute distress, alert, awake, cp non-diaphoretic, non-toxic, well developed, well nourished, uncomfortable, 22:45 Head/Face: Normocephalic, atraumatic. cp 22:45 Eyes: Periorbital structures: appear normal, Conjunctiva: normal, no exudate, no injection, Sclera: no appreciated abnormality, Lids and lashes: appear normal, bilaterally, 22:45 ENT: External ear(s): are unremarkable, Nose: is normal, Mouth: Lips: moist, Oral mucosa: pink and intact, moist, Posterior pharynx: Airway: no evidence of obstruction, patent, Voice: is normal, 22:45 Neck: ROM/movement: is normal, is supple, without pain, no range of motions limitations, no meningismus, 22:45 Chest/axilla: Inspection: normal, 22:45 Cardiovascular: Rate: normal, Rhythm: regular, Edema: is not appreciated, JVD: is not appreciated, 22:45 Respiratory: the patient does not display signs of respiratory distress, Respirations: labored breathing, that is mild, Breath sounds: bronchial sounds, that are mild, are heard diffusely, decreased breath sounds, that are mild, throughout, stridor, is not appreciated, 22:45 Abdomen/GI: Inspection: abdomen appears normal, Palpation: abdomen is soft and non-tender, in all quadrants, 22:45 Back: CVA tenderness, is absent, 22:45 Skin: no rash present. 22:45 Neuro: Orientation: to person, place \T\ time. Mentation: is normal, Motor: moves all fours, no focal deficits, Sensation: is normal, Vital Signs: 22:28 BP 158 / 81; Pulse 80; Resp 14; Temp 99.2; Pulse Ox 93% ; Weight 63.5 kg; Height 5 ft. vc1 10 in. ; Pain 4/10; 23:15 BP 150 / 95; Pulse 78; Resp 16; Pulse Ox 100% ; vc1 07/27 00:00 BP 147 / 79; Pulse 81; Resp 17; Pulse Ox 97% on 2 lpm NC; vc1 01:00 BP 144 / 79; Pulse 72; Resp 14; Pulse Ox 98% ; vc1 02:00 BP 148 / 77; Pulse 77; Resp 13; Pulse Ox 99% ; vc1 03:30 BP 169 / 89; Pulse 75; Resp 17; Temp 97.8; Pulse Ox 98% on 2 lpm NC; rg5 04:39 BP 146 / 79; Pulse 77; Resp 17; Pulse Ox 99% on 2 lpm NC; Pain 0/10; rg5 05:49 BP 145 / 77; Pulse 73; Resp 16; Temp 97.7; Pulse Ox 99% on 2 lpm NC; Pain 0/10; rg5 06:23 BP 112 / 62; Pulse 100; Resp 19; Pulse Ox 98% on R/A; rg5 07:00 BP 148 / 84; Pulse 71; Resp 20; Temp 97.9; Pulse Ox 99% on 2 lpm NC; db 07/26 22:28 Body Mass Index 20.09 (63.50 kg, 177.8 cm) vc1 07/26 22:28 Pain Scale: Adult vc1 04:39 Pain Scale: Adult rg5 05:49 Pain Scale: Adult rg5 MDM: 07/26 22:33 Medical Screening Exam initiated cp 23:00 Differential diagnosis: abnormal EKG, acute myocardial infarction, pericarditis, cp pleurisy, pneumonia, pneumothorax, pulmonary embolus, stable angina, unstable angina. 07/27 00:45 Data reviewed: vital signs, nurses notes, lab test result(s), EKG, radiologic studies, cp plain films, and as a result, I will admit patient. 00:45 The patient was given aspirin in the Emergency Department. Consideration of cp Admission/Observation Patient was admitted/placed on observation. I considered the following discharge prescriptions or medication management in the emergency department Medications were administered in the Emergency Department. See MAR. Independent interpretation of the following test(s) in the Emergency Department EKG: See my EKG interpretation above. Care significantly affected by the following chronic conditions: Chronic Obstructive Pulmonary Disease, Chronic Kidney Disease. Counseling: I had a detailed discussion with the patient and/or guardian regarding the historical points, exam findings, and any diagnostic results supporting the discharge/admit diagnosis, lab results, radiology results, the need for further work-up and treatment in the hospital. Response to treatment: the patient's symptoms have mildly improved after treatment. 07/26 22:34 Order name: Basic Metabolic Panel; Complete Time: 23:42 cp 07/26 23:42 Interpretation: Normal except: BUN 38; CRE 4.44; GFR 14. cp 07/26 22:34 Order name: CBC with Diff; Complete Time: 23:42 cp 07/26 23:42 Interpretation: Normal except: WBC 11.70; HGB 11.7; HCT 36.5; MCH 26.9; RDW 20.6; JUAN% cp 87.0; MPV 7.2; LYM% 6.2; NEUT A 10.1. 07/26 22:34 Order name: LFT's; Complete Time: 23:42 cp 07/26 23:42 Interpretation: Normal except: ALK 185; ALB 2.8; GLOB 4.1; A/G 0.7. cp 07/26 22:34 Order name: Magnesium; Complete Time: 23:42 cp 07/26 22:34 Order name: NT PRO-BNP; Complete Time: 23:42 cp 07/26 22:34 Order name: PT-INR; Complete Time: 23:42 cp 07/26 22:34 Order name: Troponin HS; Complete Time: 23:42 cp 07/26 23:04 Order name: Manual Differential; Complete Time: 23:42 EDMS 07/26 23:43 Interpretation: Normal except: BANDS [F] 13; LYM 3; EOS 4. cp 07/26 23:44 Order name: Influenza Screen (a \T\ B); Complete Time: 04:15 cp 07/26 23:44 Order name: SARS RAPID; Complete Time: 04:15 cp 07/26 23:45 Order name: Lactate w/ 2H reflex if indic.; Complete Time: 04:15 cp 07/26 23:45 Order name: Blood Culture Adult (2) cp 07/26 22:34 Order name: XRAY Chest (1 view); Complete Time: 00:32 cp 07/26 22:34 Order name: Cardiac monitoring; Complete Time: 22:50 cp 07/26 22:34 Order name: EKG - Nurse/Tech; Complete Time: 22:50 cp 07/26 22:34 Order name: IV Saline Lock; Complete Time: 22:50 cp 07/26 22:34 Order name: Labs collected and sent; Complete Time: 22:50 cp 07/26 22:34 Order name: O2 Per Protocol; Complete Time: 22:50 cp 07/26 22:34 Order name: O2 Sat Monitoring; Complete Time: 22:50 cp 07/27 00:15 Order name: Misc. Order: RECOLLECT LACTATE; Complete Time: 00:36 rv1 EC/18 22:35 Rate is 79 beats/min. Rhythm is regular. WI interval is normal. QRS interval is normal. cp QT interval is normal. Interpreted by me. Reviewed by me. Administered Medications: 22:42 CANCELLED (Physician Discretion): morphineor iv 4 mg IVP once over 4 mins cp 22:59 Drug: Aspirin PO Chewable Tablet 324 mg PO once; 81 mg tablets x 4 Route: PO; vc1 07/27 00:05 Follow up: Response: No adverse reaction; Marked relief of symptoms vc1 07/26 22:59 Drug: Ondansetron IVP 4 mg IVP once; over 2 minutes Route: IVP; Site: right antecubital;vc1 07/27 00:05 Follow up: Response: No adverse reaction; Marked relief of symptoms vc1 07/26 22:59 Drug: DuoNeb Nebulize (2.5 mg - 0.5 mg) 3 ml Nebulizer once Route: Nebulizer; vc1 07/27 00:05 Follow up: Response: No adverse reaction; Marked relief of symptoms vc1 07/26 22:59 Drug: fentaNYL (PF) IVP 50 mcg IVP once Route: IVP; Site: right antecubital; vc1 07/27 00:04 Follow up: Response: No adverse reaction; Marked relief of symptoms vc1 00:36 Drug: Piperacillin-Tazobactam IVPB 2.25 grams IVPB once over 60 mins; (mix in NS 100 vc1 mL) Route: IVPB; Infused Over: 60 mins; Site: right antecubital; 01:36 Follow up: IV Status: Completed infusion; IV Intake: 100ml vc1 04:45 Drug: vancoMYCIN IVPB 1 grams IVPB once over 2 hrs Route: IVPB; Infused Over: 2 hrs; rg5 Site: right antecubital; 06:24 Follow up: Response: No adverse reaction; IV Status: Completed infusion; IV Intake: rg5 250ml 07:07 Drug: fentaNYL (PF) IVP 25 mcg IVP once Route: IVP; Site: right antecubital; rg5 07:22 Drug: Ativan IVP 0.5 mg IVP once Route: IVP; Site: right antecubital; db Disposition: 04:20 Co-signature as Attending Physician, Ean Vila MD I agree with the assessment sp4 and plan of care. I reviewed the patient's care provided by Advanced Practice Provider \T\ agree w/ the diagnosis \T\ care plan. I personally saw the pt \T\ performed a substantive portion of the visit, incldng all aspects of the (History/Exam/Medical Decision Making). Disposition Summary: 07/27/24 00:36 Hospitalization Ordered Notes: Hospitalization Status: Inpatient Admission cp Provider: Charlie Cary cp Condition: Stable cp Problem: new cp Symptoms: have improved cp Bed/Room Type: Standard cp Location: Telemetry/MedSurg (Inpatient)(07/27/24 07:26) eb Room Assignment: 213(07/27/24 07:26) eb Diagnosis - Pneumonia, unspecified organism cp - COPD/ Chronic obstructive pulmonary disease with (acute) exacerbation cp Forms: - Medication Reconciliation Form cp - SBAR form cp - Leadership Thank You Letter cp Signatures: Dispatcher [employer] EDMS Adalid [place] PA PA cp Kristen Ricardo eb Charlette Thompson RN RN vc1 Kiya Drake RN RN Taisha Guo Sergey, MD MD sp4 Rudy Tracy RN RN rg5 Corrections: (The following items were deleted from the chart) 07/26 22:34 22:33 PSHx: left upper arm fistula (Peritoneal Catheter); vc1 vc1 22:34 22:33 PSHx: Right chest HD cath (Peritoneal Catheter); vc1 vc1 22:35 22:35 Chest Single View+RAD.RAD.BRZ ordered. EDMS EDMS 22:42 22:34 morphine IVP or IV 4 mg IVP once over 4 mins ordered. cp cp 23:45 23:45 LACTATE+C.LAB.BRZ ordered. EDMS EDMS 23:45 23:45 BLOOD CULTURE*+BA.LAB.BRZ ordered. EDMS EDMS 07/27 01:28 00:36 Telemetry/MedSurg (Inpatient) cp rv1 01:28 00:36 cp rv1 07:26 01:28 [facility] ER HOLD rv1 eb 07: 01:28 ERHOLD- rv1 eb 07/28 00:46 07/27 04:19 This 63 yrs old Male presents to ER via EMS with complaints of cp Chest Pain, Shortness Of Breath. sp4
[2024-07-27 01:24] LABS: SARS-CoV-2 Antigen CONTROL BLUE LINE VIS/BG OK; SARS-CoV-2 Antigen Rapid Res Negative (Negative)
--- NOTE | 2024-07-27 02:45 | P.HP ---
Certification for Inpatient Patient admitted to: Inpatient With expected LOS: >2 Midnights Practitioner: I am a practitioner with admitting privileges, knowledge of patient current condition, hospital course, and medical plan of care. Services: Services provided to patient in accordance with Admission requirements found in Title 42 Section 412.3 of the Code of Federal Regulations Patient History Date of Service: 07/27/24 Reason for admission: SOB History of Present Illness: PMHx: 22:33 Dialysis pt; End stage renal disease; vc1 - PSHx: 22:33 Peritoneal Catheter; vc1 22:33 left upper arm fistula; Right chest HD cath; Allergies codeine Allergy (Unknown, Verified 05/08/24 20:13) unknown morphine Adverse Reaction (Verified 05/08/24 20:13) Itching Home Medications: Losartan Potassium 50 mg PO BEDTIME 12/02/23 Pantoprazole [Protonix Tab*] 40 mg PO DAILY 12/02/23 Tamsulosin [Flomax*] 0.4 mg PO BEDTIME 12/02/23 Cholecalciferol (Vitamin D3) [Vitamin D 1000 Iu Tab*] 2,000 unit PO DAILY #30 tab 12/14/23 LORazepam [Ativan] 0.5 mg PO BID PRN #30 tab 12/14/23 Hydrocodone 10/APAP 325 [Eugene 10/325] 1 tab PO Q6H PRN #40 tab 12/16/23 Bumetanide [Bumex] 2 mg PO BID 05/09/24 Buspirone HCl [Buspar] 10 mg PO BEDTIME 05/09/24 Diphenhydramine HCl [Benadryl Allergy] 25 mg PO BEDTIME 05/09/24 Sertraline [Zoloft] 25 mg PO DAILY 05/09/24 carvediloL [Carvedilol] 6.25 mg PO BID 05/09/24 - Past Medical/Surgical History Diabetic: No -: End-stage renal disease followed by Dr. Juarez/Ted -: Hypertension -: Peritoneal dialysis - Social History Alcohol use: No CD- Drugs: No Caffeine use: No Physical Examination - Studies Laboratory Data (last 24 hrs) 07/26/24 07/26/24 07/26/24 22:40 22:40 22:40 WBC 11.70 H Hgb 11.7 L Hct 36.5 L Plt Count 232 PT 14.8 H INR 1.33 Sodium 137 Potassium 4.6 BUN 38 H Creatinine 4.44 H Glucose 87 Magnesium 2.1 Total Bilirubin 0.5 AST 19 ALT 30 Alkaline Phosphatase 185 H Microbiology Data (last 24 hrs): 07/26/24 23:40 Nasopharnyx Influenza Type A Antigen Screen - Final 07/26/24 23:40 Nasopharnyx Influenza Type B Antigen Screen - Final Assessment and Plan - Advance Directives Does patient have a Living Will: No Does patient have a Durable POA for Healthcare: No
[2024-07-27] MEDS ORDERED: VANCOMYCIN 1 GM/VIAL ONE (04:43)
[2024-07-27] MEDS ORDERED: NA CHLORIDE 0.9% 250 ML ONE (04:43)
[2024-07-27] MEDS ORDERED: FENTANYL CITR 100 MCG/2 ML ONE (07:05)
[2024-07-27] MEDS ORDERED: LORazepam 2 MG/ML VIAL ONE (07:19)
[2024-07-27] MEDS ORDERED: HYDRALAZINE HCL 20 MG/ML VIAL IV PRN (08:44)
[2024-07-27] MEDS ORDERED: ACETAMINOPHEN 325 MG TABLET PO PRN (08:44)
[2024-07-27] MEDS ORDERED: ALBUTEROL 2.5 MG/3 ML NEB SOL NEB PRN (08:44)
[2024-07-27] MEDS: PIPER TAZO 3.375 GM in NA CHLORIDE 0.9% 100 ML IV SCH ×2 (09:00→09:43)
[2024-07-27] MEDS: BUMETANIDE 1 MG TABLET PO SCH (10:58)
[2024-07-27] MEDS: HYDROCODONE/APAP 10/325 TAB PO PRN (10:59)
[2024-07-27] MEDS: LORAZEPAM 0.5 MG TABLET PO PRN (10:59)
[2024-07-27] MEDS: AMLODIPINE 5 MG TAB PO SCH (10:59)
[2024-07-27] MEDS: AMYLASE/LIPASE/PROTEASE CAP PO SCH (11:02)
[2024-07-27] MEDS: carvediloL 12.5 MG TAB PO SCH (11:02)
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
[2024-07-27] MEDS: ALBUTEROL 2.5 MG/3 ML NEB SOL NEB SCH (13:00)
[2024-07-27] MEDS: TAMSULOSIN 0.4 MG SR CAP PO SCH (19:40)
[2024-07-27] MEDS: DIPHENHYDRAMINE 25 MG TAB/CAP PO SCH (19:41)
[2024-07-27] MEDS: BUSPIRONE HCL 5 MG TABLET PO SCH (19:41)
[2024-07-27] MEDS: LORazepam 2 MG/ML VIAL ONE (19:43)
[2024-07-27] MEDS: LORazepam 2 MG/ML VIAL IV ONE (19:45)
[2024-07-27] MEDS: IBUPROFEN 400 MG TAB PO ONE (19:54)
[2024-07-27] MEDS: FENTANYL 50 MCG/PATCH TD ONE (20:02)
[2024-07-27] MEDS: FENTANYL 50 MCG/PATCH TD SCH (20:10)
[2024-07-27] MEDS: methocarbamoL 500 MG TAB PO SCH (20:13)
[2024-07-27] MEDS: HEPARIN 5000 UNIT/ML 1 ML VIAL SQ SCH (20:14)
[2024-07-27] MEDS: LOSARTAN POTASSIUM 50 MG TABLET PO SCH (20:15)
[2024-07-27] MEDS: ONDANSETRON 4 MG/2 ML VIAL IV PRN (20:15)
[2024-07-27] MEDS: ZOLPIDEM TARTRATE 5 MG TABLET PO PRN (21:59)
[2024-07-28 03:44] VITALS: O2SAT 98
--- NOTE | 2024-07-28 06:58 | RAD REPORT ---
EXAMINATION: ONE VIEW CHEST XR CLINICAL INDICATION: Male, 63 years old.pneumonia TECHNIQUE: 1 View, AP supine, X-ray of the chest was performed. [id number]. COMPARISON: 07/26/2024 FINDINGS: Lungs and pleura: Basilar airspace disease similar to prior. Left pleural effusion is unchanged. Heart and mediastinum: Similar cardiomegaly Unremarkable mediastinal contours. Osseous structures: No acute abnormality. Tubes/lines: Dialysis catheter with tip overlying the proximal SVC. Other: None. IMPRESSION: Basilar opacities in the lung bases and small left pleural effusion similar to 07/26/2024. While pneu monia difficult to exclude, the appearance of the chest is fairly similar to multiple prior chest radiographs going back to at least 05/08/2024.
[2024-07-28 07:34] LABS: Anion Gap 14.5 mEq/L (5.0-15.0); Potassium 5.5 mEq/L (3.5-5.1)
[2024-07-28] MEDS: PANTOPRAZOLE 40MG TABLET PO SCH (08:45)
[2024-07-28] MEDS: SERTRALINE HCL 50 MG TAB PO SCH (08:46)
[2024-07-28] MEDS: SOD POLYSTYREN SUL 15 GM/60 ML UCUP PO ONE (11:29)
[2024-07-28 12:45] VITALS: BP 142/74; TEMP 98.5
--- NOTE | 2024-07-28 13:26 | DS ---
Date of Discharge: 07/28/2024 Disposition: Discharged to go home. Physical Examination: Vital Signs: Reviewed. HEENT: Unremarkable. Lungs: Clear to auscultation. Heart: Sounds normal. Abdomen: Soft. Bowel sounds normal. No guarding, rigidity, tenderness, distention. Extremities: No leg edema. Laboratory Data: Upon admission, sodium 137, potassium 4.6, chloride 103, bicarb 27, BUN 38, creatin ine 4.44, glucose 87. Lactic acid less than 0.8. Liver function tests unremarkable, proBNP 106,232. Troponin first set 39.4, second set 26.6, third set 22.5, and fourth set 21.4. Today chemistry; so dium 136, potassium 5.5, chloride 102, bicarb 25, BUN 81, creatinine 6.41, glucose 105. COVID-19 ward t was negative. Chest x-ray upon admission and today shows bibasilar opacity and in fact, this has r emained unchanged from multiple prior x-ray going all the way back to April of this year as reported b y the radiologist. Final Diagnoses: 1.Pneumonia. 2.Acute exacerbation of chronic obstructive pulmonary disease. 3.Chest pain, atypical. 4.Hyperkalemia. 5.End-stage renal disease, on hemodialysis. 6.Anemia due to chronic kidney disease. 7.Hypertension. 8.Hyperlipidemia. 9.Anxiety. 10.Depression. 11.Osteoarthritis, multiple sites. 12.Chronic pancreatitis. Hospital Course: This is a 63-year-old male patient who was admitted to the hospital after he came i [facility] emergency room with complaints of fever, cough, congestion, chest pain, and shortness of breath. Please see dictated H and P for more information. After the patient was evaluated in the emergency room, he was admitted to the hospital. His NM was ruled out by getting serial cardiac enzymes and hi s chest pain was atypical in nature. The patient's initial chest x-ray had shown some bibasilar opac ity concerning about pneumonia. He was started on IV Zosyn, which was continued during this hospital ization. Repeat chest x-ray today is unchanged from the previous x-ray. Yesterday when I saw him, hiwot pagan had lot of wheezing in the lower part of his lungs with some crackling sounds and today his lungs a re clear to auscultation. Overall, his condition has stabilized. The patient has chronic pain probl em. He takes a narcotic pain medication under care of Pain Management physician and yesterday in spi te of his use of chronic pain medication, he was still complaining of pain, so ibuprofen 800 mg p.o. x1 dose and methocarbamol 500 mg p.o. x1 dose was ordered yesterday evening. He also had lot of anxi ety problem and 1 extra dose of IV lorazepam 0.5 mg was given yesterday. This morning when I saw him , he was lying in bed, not in distress, sleeping, easily arousable, and denied any new complaints thi s morning when I saw him. He was not in any respiratory distress. The patient has a longstanding hi story of smoking in the past and I suspect he probably has some underlying COPD and he will definitel y benefit from use of inhaler. Today's potassium level was elevated and Kayexalate 30 g p.o. x1 dose was ordered. The patient goes for hemodialysis on Monday, Monday, and Monday, so he will go for his outpatient dialysis tomorrow. Discharge Medications And Instructions: 1.Continue all prior home medication. 2.Start following new medications and prescription will be sent to his pharmacy from my office: a.Augmentin 500 mg 1 tablet by mouth daily in the evening for 1 week. b.Trelegy inhaler 1 puff by mouth daily, rinse mouth with water after each use. 3.Follow up at my office on , which is August 01, 2024 and the patient to call office for a ppointment. YAMILE/MODL Voice ID: [id number] Report ID: [id number]
--- NOTE | 2024-07-30 13:01 | EKG ---
Test Date: 2024-07-26 Test Time: 22:30:10 Plant Physiology Teacher: ENA MEASUREMENT RESULTS: Intervals: Rate: 79 TN: 138 QRSD: 100 QT: 398 QTc: 456 [place]: P: 59 TN: 138 QRS: -20 T: 65 INTERPRETIVE STATEMENTS: Sinus rhythm with occasional premature ventricular complexes Left atrial enlargement Left ventricular hypertrophy with repolarization abnormality Abnormal ECG Compared to ECG 07/26/2024 22:29:37 Fusion complex(es) no longer present Electronically Signed On 07-30-24 12:52:49 CDT by Pineda Hopper
--- NOTE | 2024-07-30 13:01 | EKG ---
Test Date: 2024-07-26 Test Time: 22:29:37 Park Warden: ENA MEASUREMENT RESULTS: Intervals: Rate: 79 VA: 136 QRSD: 100 QT: 402 QTc: 460 [place]: P: 63 VA: 136 QRS: -22 T: 60 INTERPRETIVE STATEMENTS: Sinus rhythm with occasional premature ventricular complexes and fusion complexes Left atrial enlargement Left ventricular hypertrophy with repolarization abnormality Abnormal ECG Compared to ECG 06/20/2024 00:21:31 Fusion complex(es) now present Ventricular premature complex(es) now present Early repolarization now present Left-axis deviation no longer present ST (T wave) deviation no longer present Prolonged QT interval no longer present Electronically Signed On 07-30-24 12:52:52 CDT by Pineda Hopper
== END 2024-07-28 14:38 | disposition home or self-care (01) | DRG 193 ==
LOC: ER 22:22 → ERHOLD 07-27 04:18 → 2ND 07-27 08:02
PROVIDERS: ADMIT Internal Medicine; ATTEND Internal Medicine
PROC: 5A1D70Z Performance of Urinary Filtration, Intermittent, Less than 6 Hours Per Day (ICD-10-PCS; principal; 2024-07-27)
DX: J18.9 Pneumonia, unspecified organism (principal); N18.6 End stage renal disease; J44.0 Chronic obstructive pulmonary disease with (acute) lower respiratory infection; J44.1 Chronic obstructive pulmonary disease with (acute) exacerbation; K86.1 Other chronic pancreatitis; I12.0 Hypertensive chronic kidney disease with stage 5 chronic kidney disease or end stage renal disease; D63.1 Anemia in chronic kidney disease; F41.9 Anxiety disorder, unspecified; F32.A Depression, unspecified; E87.5 Hyperkalemia; M10.9 Gout, unspecified; M19.09 Primary osteoarthritis, other specified site; E78.5 Hyperlipidemia, unspecified; F17.210 Nicotine dependence, cigarettes, uncomplicated; Z99.2 Dependence on renal dialysis; Z88.5 Allergy status to narcotic agent; Z11.52 Encounter for screening for COVID-19; Z79.02 Long term (current) use of antithrombotics/antiplatelets; Z79.899 Other long term (current) drug therapy; Z91.158 Patient's noncompliance with renal dialysis for other reason; Z89.022 Acquired absence of left finger(s)
CPT/HCPCS: 36415; 71045; 80048; 80076; 83605; 83735; 83880; 84484; 85025; 85610; 87040; 87804; 87811; 90935; 93005; 94640; 96365; 96366; 96367; 96375; 99285; J1644; J2405; J2543; J3010; J7050; J7613; J7644

== ENCOUNTER 2024-07-29 10:46 | Emergency (ER) | payer OTHER ==
[2024-07-29] MEDS ORDERED: ALBUTEROL 2.5 MG/3 ML NEB SOL ONE (11:11)
[2024-07-29] MEDS ORDERED: IPRATROPIUM BROM 0.5MG/2.5ML ONE (11:11)
[2024-07-29] MEDS ORDERED: FENTANYL CITR 100 MCG/2 ML ONE (11:12)
[2024-07-29 11:43] LABS: Absolute Eosinophils 0.3 K/uL (0-0.5); Absolute Lymphocytes (CBC) 1.3 K/uL (0.7-4.9); Absolute Monocytes 0.5 K/uL (0.1-1.3); Absolute Neutrophil 7.3 K/uL (1.8-8.0); Basophils % 0.3 % (0-1.3); Hematocrit 37.7 % (39.6-49.0); Hemoglobin 11.8 g/dL (13.6-17.9); Lymphocytes % 13.3 % (15.3-44.8); MCH 26.6 pg (27.0-35.0); MCHC 31.4 g/dL (32.0-36.0); MCV 84.9 fL (80-100); MPV 7.1 fL (7.6-11.3); Monocytes % 5.6 % (3.3-12.3); Neutrophils % 77.8 % (41.7-73.7); Platelets 386 thou/uL (152-406); RBC Red Blood Cell Count 4.44 M/uL (4.33-5.43); Red Cell Distribution Width 20.4 % (12.1-15.2)
[2024-07-29 12:03] LABS: ALT/SGPT 53 U/L (16-61); AST/SGOT 30 U/L (15-37); Albumin 2.7 g/dL (3.4-5.0); Albumin/Globulin Ratio 0.7 (1.1-1.8); Alkaline Phosphatase 146 U/L (45-117); Anion Gap 15.8 mEq/L (5.0-15.0); BUN Blood Urea Nitrogen 110 mg/dL (7-18); Bicarbonate 25 mEq/L (21-32); Bilirubin Total 0.5 mg/dL (0.2-1.0); Globulin 3.7 g/dL (2.3-3.5); Glomerular Filtration Rate 8 ml/min (=/>90); Glucose Level 105 mg/dL (74-106); Potassium 5.8 mEq/L (3.5-5.1); Protein, Total 6.4 g/dL (6.4-8.2); Sodium Level 135 mEq/L (136-145)
[2024-07-29 12:06] LABS: Bilirubin Direct < 0.2 mg/dL (0-0.2); Bilirubin Indirect, Calculated 0.3 mg/dL (0.2-0.8)
--- NOTE | 2024-07-29 12:19 | RAD REPORT ---
EXAMINATION: ONE VIEW CHEST XR CLINICAL INDICATION: Male, 63 years old.,DYSPNEA TECHNIQUE: Frontal chest projection is submitted. Examination is limited by patient positioning and t echnique. COMPARISON: 07/28/2024 FINDINGS: The lungs are well inflated. Stable left basilar opacification with suggestion of small effusion. Mil d medial right basal hazy opacification. Findings are stable. Right IJ dialysis catheter, unchanged in position. No pneumothorax. The heart is normal in size. IMPRESSION: Stable bibasilar opacities and left pleural effusion, suggesting chronic atelectasis and effusion. Pl ease correlate clinically.
[2024-07-29 13:38] LABS: Anisocytosis 1+; Blood Morphology Comment NOTED (NOT SEEN); Platelet Estimate ADEQ; White Blood Cell Scan OK (OK)
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
[2024-07-29 17:06] VITALS: TEMP 98.6; O2SAT 98
[2024-07-29 17:08] VITALS: BP 162/104
--- NOTE | 2024-07-30 12:53 | EKG ---
Test Date: 2024-07-29 Test Time: 10:54:33 [facility]: [facility] MEASUREMENT RESULTS: Intervals: Rate: 74 NC: 120 QRSD: 100 QT: 416 QTc: 461 [place]: P: 39 NC: 120 QRS: -48 T: 50 INTERPRETIVE STATEMENTS: Normal sinus rhythm Possible Left atrial enlargement Left axis deviation Abnormal ECG Compared to ECG 07/26/2024 22:30:10 Left-axis deviation now present Ventricular premature complex(es) no longer present Left ventricular hypertrophy no longer present Early repolarization no longer present Electronically Signed On 07-30-24 12:50:18 CDT by Pineda Hopper
== END 2024-07-29 15:12 | disposition home or self-care (01) ==
LOC: ER 10:46
DX: R07.9 Chest pain, unspecified (principal); I12.0 Hypertensive chronic kidney disease with stage 5 chronic kidney disease or end stage renal disease; N18.6 End stage renal disease; Z99.2 Dependence on renal dialysis; F17.210 Nicotine dependence, cigarettes, uncomplicated
CPT/HCPCS: 93005; 85025; 80048; 36415; 80076; 84484; 71045; 94640; 96374; 99285; J7613; J7644; J3010

== ENCOUNTER 2024-07-30 13:49 | Emergency (ER) | payer OTHER ==
[2024-07-30 14:26] LABS: Absolute Lymphocytes (CBC) 1.2 K/uL (0.7-4.9); Absolute Monocytes 0.8 K/uL (0.1-1.3); Absolute Neutrophil 5.5 K/uL (1.8-8.0); Basophils % 0.4 % (0-1.3); Eosinophils % 0.2 % (0-4.4); Hematocrit 35.7 % (39.6-49.0); Hemoglobin 11.4 g/dL (13.6-17.9); Lymphocytes % 16.4 % (15.3-44.8); MCH 26.9 pg (27.0-35.0); MCHC 31.9 g/dL (32.0-36.0); MCV 84.3 fL (80-100); MPV 6.8 fL (7.6-11.3); Monocytes % 10.1 % (3.3-12.3); Neutrophils % 72.9 % (41.7-73.7); Platelets 336 thou/uL (152-406); RBC Red Blood Cell Count 4.24 M/uL (4.33-5.43); Red Cell Distribution Width 19.8 % (12.1-15.2)
[2024-07-30 14:39] LABS: PT Prothrombin Time 12.7 SECONDS (9.4-12.5); PTT, Activated Partial Thromb 33.1 SECONDS (24.3-36.9); Protime INR 1.14
[2024-07-30 14:57] LABS: ALT/SGPT 44 U/L (16-61); AST/SGOT 19 U/L (15-37); Albumin 2.7 g/dL (3.4-5.0); Albumin/Globulin Ratio 0.7 (1.1-1.8); Alkaline Phosphatase 136 U/L (45-117); Anion Gap 12.7 mEq/L (5.0-15.0); BUN Blood Urea Nitrogen 60 mg/dL (7-18); Bicarbonate 25 mEq/L (21-32); Bilirubin Total 0.4 mg/dL (0.2-1.0); Globulin 3.9 g/dL (2.3-3.5); Glomerular Filtration Rate 14 ml/min (=/>90); Glucose Level 90 mg/dL (74-106); Potassium 4.7 mEq/L (3.5-5.1); Protein, Total 6.6 g/dL (6.4-8.2); Sodium Level 137 mEq/L (136-145)
[2024-07-30 14:58] LABS: Bilirubin Direct < 0.2 mg/dL (0-0.2); Bilirubin Indirect, Calculated 0.2 mg/dL (0.2-0.8)
[2024-07-30] MEDS ORDERED: ONDANSETRON 4 MG/2 ML VIAL ONE (15:49)
--- NOTE | 2024-07-30 16:44 | ER ---
Nurse's Notes [facility] Name: Marcello Mcrae Jr Age: 63 yrs Sex: Male : 1960 Arrival Date: 07/30/2024 Time: 13:49 Bed 14 Private MD: Diagnosis: Non-toxic tylenol overdose Presentation: 07/30 13:52 Chief complaint: EMS states: PER EMS "HE WAS HERE FOR THE SAME YESTERDAY. HE SAYS HE bp TOOK A BUNCH OF PILLS, BUT HIS SAID ALL HIS MEDICINE IS LOCKED UP AND ALL HE HAD ACCESS TO WAS TWO TYLENOL PM. THE SAYS HE TAKES TOO MUCH OF HIS MEDICINE AND SO SHE KEEPS IT LOCKED UP. SHE SAID EVERYTIME HE COMES TO THE ER HE SAYS HE HAS CHEST PAIN AND ASKS FOR DILAUDID.". Coronavirus screen: At this time, the client does not indicate any symptoms associated with coronavirus-19. Ebola Screen: No symptoms or risks identified at this time. Initial Sepsis Screen: Does the patient meet any 2 criteria? No. Patient's initial sepsis screen is negative. Does the patient have a suspected source of infection? No. Patient's initial sepsis screen is negative. Risk Assessment:. Onset of symptoms is unknown. 13:52 Method Of Arrival: EMS: [facility] bp 13:52 Acuity: RITO 2 bp 13:56 Risk Assessment: Do you want to hurt yourself or someone else? Other: CHRONIC SUICIDAL bp IDEATION, NO ACTIVE ATTEMPT. Triage Assessment: 13:54 General: Appears in no apparent distress. Behavior is cooperative, appropriate for age, bp anxious. Pain: Complains of pain in GENERALIZED. EENT: No deficits noted. Neuro: No deficits noted. Cardiovascular: Rhythm is sinus rhythm. Respiratory: No deficits noted. GI: No signs and/or symptoms were reported involving the gastrointestinal system. : No signs and/or symptoms were reported regarding the genitourinary system. Derm: No deficits noted. Musculoskeletal: No deficits noted. Historical: - Allergies: 13:54 Codeine; bp 13:54 Morphine; bp - Home Meds: 14:31 hydrocodone-acetaminophen 10-325 mg Oral tablet every 6 hours [Active]; mb9 - PMHx: 13:54 Dialysis pt; Hypertensive disorder; End stage renal disease; bp - PSHx: 13:54 Left upper arm fistula; Peritoneal Catheter; Right chest HD cath; bp - Immunization history:: Adult Immunizations up to date. - Infectious Disease History:: Denies. - Social history:: Smoking status: Patient denies any tobacco usage or history of. - Family history:: not pertinent. - Hospitalizations: : No recent hospitalization is reported. Screenin:12 [facility] ED Fall Risk Assessment (Adult) History of falling in the last 3 months, mb9 including since admission No falls in past 3 months (0 pts) Confusion or Disorientation No (0 pts) Intoxicated or Sedated No (0 pts) Impaired Gait Yes (1 pt) Mobility Assist Device Used Yes (1 pt) Altered Elimination No (0 pt) Score/Fall Risk Level 3 or more points = High Risk Oriented to surroundings, Maintained a safe environment, Educated pt \\T\\ family on fall prevention, incl call for assistance when getting out of bed. Abuse screen: Denies threats or abuse. Nutritional screening: No deficits noted. Tuberculosis screening: No symptoms or risk factors identified. Assessment: 13:31 Reassessment: pt states he has no SI/HI thoughts. Pt says he is mentally tired. Pt mb9 states he wants pain medication for his stomach pain.". 14:31 Reassessment: Patient and/or family updated on plan of care and expected duration. Pain mb9 level reassessed. Patient is alert, oriented x 3, equal unlabored respirations, skin warm/dry/pink. Si precautions in place, Sitter at bedside. 15:31 Reassessment: Patient and/or family updated on plan of care and expected duration. Pain mb9 level reassessed. Patient is alert, oriented x 3, equal unlabored respirations, skin warm/dry/pink. Si precautions in place, Sitter at bedside. 16:31 Reassessment: Patient and/or family updated on plan of care and expected duration. Pain mb9 level reassessed. Patient is alert, oriented x 3, equal unlabored respirations, skin warm/dry/pink. Si precautions in place, Sitter at bedside. 17:15 Reassessment: Pt sitting on side of bed taking pants off. This nurse enters room to ask mb9 why and pt states, "I'm leaving because I'm up for discharge." Pt told he is up for transfer per request of himself and ERP. Pt beginning to get verbally aggressive and stating he is leaving. ERP notified. Psych: 14:30 [place] Suicide Severity Screening: In the past month, have you wished you were mb9 or wished you could go to sleep and not wake up? Patient responds "No." "In the past month, have you actually had any thoughts of killing yourself?" Patient responds "no." "In your lifetime, have you ever done anything, started to do anything, or prepared to do anything to end your life?" Patient responds "no.". Subjective: Patient's mood is sad, Delusions are denied, Hallucinations are denied Having thoughts of none. Objective: Patient is cooperative, Speech is normal, Affect is appropriate. Interventions: Removed personal items and placed in bag. Safety Checks: Personal items have been removed. Pt denies substance abuse. Vital Signs: 13:52 BP 175 / 93; Pulse 71; Resp 16; Temp 98; Pulse Ox 98% ; bp 14:54 Pulse 72; Resp 18; Pulse Ox 100% on R/A; mb9 17:04 Pulse 77; Resp 18; Pulse Ox 100% on R/A; mb9 ED Course: 13:51 Patient arrived in ED. bp 13:54 Triage completed. bp 13:54 Arm band placed on. bp 13:56 Ab Osborne MD is Attending Physician. rn 14:10 Venecia Choi, NIDA is Primary Nurse. mb9 14:12 Bed in low position. Client placed on continuous cardiac and pulse oximetry monitoring. mb9 NIBP monitoring applied. 14:16 Acetaminophen Sent. bc6 14:16 Basic Metabolic Panel Sent. bc6 14:16 CBC with Diff Sent. bc6 14:16 ETOH Level Sent. bc6 14:16 Hepatic Function Sent. bc6 14:16 PT-INR Sent. bc6 14:16 Ptt, Activated Sent. bc6 14:16 Salicylate Sent. bc6 14:16 Initial lab(s) drawn, by ED staff, sent to lab. Inserted saline lock: 20 gauge in right bc6 forearm, using aseptic technique. Blood collected. Flushed with 10 mL NS. 14:26 EKG done, by ED staff. tm3 14:28 Patient requests pain medication. mb9 14:31 No provider procedures requiring assistance completed. mb9 16:12 Provided Education on: press call light if needing anything. mb9 17:30 IV discontinued, intact, bleeding controlled, No redness/swelling at site. Pressure mb9 dressing applied. Administered Medications: 15:57 Drug: Ondansetron IVP 4 mg IVP once; over 2 minutes Route: IVP; Site: right forearm; mb9 17:05 Follow up: Response: No adverse reaction mb9 Medication: 14:11 VIS not applicable for this client. mb9 Outcome: 16:44 ER care complete, transfer ordered by . rn 17:22 Discharge ordered by MD. rn 17:30 Discharged to home ambulatory, mb9 17:30 Condition: stable 17:30 Discharge instructions given to patient, Instructed on discharge instructions, follow up and referral plans. Demonstrated understanding of instructions, follow-up care, 17:30 Patient left the ED. mb9 Signatures: [employer] tm3 Ab Osborne MD MD rn Peltier, Brian, RN RN bp Wilkerson, Mary Beth, RN RN mb9 Shannan Vogt 6
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
[2024-07-30 17:48] LABS: Barbiturates NEGATIVE (NEGATIVE); Benzodiazepines NEGATIVE (NEGATIVE); Cocaine NEGATIVE (NEGATIVE); METHAMPHETAM NEGATIVE (NEGATIVE); Methadone NEGATIVE (NEGATIVE); Opiates NEGATIVE (NEGATIVE); Phencyclidine NEGATIVE (NEGATIVE); THC Cannibis POSITIVE (NEGATIVE)
[2024-07-30 20:59] VITALS: BP 175/93; TEMP 98
[2024-07-30 21:00] VITALS: O2SAT 100
--- NOTE | 2024-08-01 12:22 | EKG ---
Test Date: 2024-07-30 Test Time: 14:24:21 Consumer Marketing Manager: TM MEASUREMENT RESULTS: Intervals: Rate: 71 TX: 138 QRSD: 94 QT: 442 QTc: 480 [place]: P: 82 TX: 138 QRS: 64 T: 56 INTERPRETIVE STATEMENTS: Normal sinus rhythm Left atrial enlargement Nonspecific ST and T wave abnormality Prolonged QT Abnormal ECG Compared to ECG 07/30/2024 14:22:07 Prolonged QT interval now present Possible ischemia no longer present ST (T wave) deviation still present Electronically Signed On 08-01-24 12:17:12 CDT by Pineda Hopper
--- NOTE | 2024-08-01 12:22 | EKG ---
Test Date: 2024-07-30 Test Time: 14:22:07 Hop Grower: TM MEASUREMENT RESULTS: Intervals: Rate: 72 ME: 138 QRSD: 94 QT: 440 QTc: 481 [place]: P: 79 ME: 138 QRS: 60 T: 57 INTERPRETIVE STATEMENTS: Normal sinus rhythm Left atrial enlargement ST & T wave abnormality, consider lateral ischemia Abnormal ECG Compared to ECG 07/29/2024 10:54:33 ST (T wave) deviation now present Possible ischemia now present Left-axis deviation no longer present Electronically Signed On 08-01-24 12:17:13 CDT by Pineda Hopper
== END 2024-07-30 17:30 | disposition home or self-care (01) ==
LOC: ER 13:49
DX: T39.1X1A Poisoning by 4-Aminophenol derivatives, accidental (unintentional), initial encounter (principal); I12.0 Hypertensive chronic kidney disease with stage 5 chronic kidney disease or end stage renal disease; N18.6 End stage renal disease; Z99.2 Dependence on renal dialysis
CPT/HCPCS: 93005 ×2; 85025; 80048; 36415; 85610; 80076; 85730; 80307; 96374; 99285; 80143; 80179; 82077; J2405

== ENCOUNTER 2024-09-16 16:09 | Emergency (ER) | payer OTHER ==
--- NOTE | 2024-09-16 17:51 | RAD REPORT ---
EXAMINATION: ONE VIEW CHEST XR CLINICAL INDICATION: Male, 63 years old.,DYSPNEA TECHNIQUE: Frontal chest projection is submitted. Examination is limited by patient positioning and t echnique. COMPARISON: 07/29/2024 FINDINGS: Right IJ dialysis catheter unchanged in position. The lungs are well inflated and essentially clear, with partial improvement of aeration in the left base, may relate to resolving atelectasis and/or small effusion. No pneumothorax or sizable effusion. The heart is normal in size. Mediastinal contou rs are unremarkable. IMPRESSION: No acute intrathoracic abnormalities. Findings as above.
[2024-09-16 17:52] LABS: Absolute Basophils 0.1 K/uL (0-0.5); Absolute Eosinophils 0.3 K/uL (0-0.5); Absolute Lymphocytes (CBC) 0.9 K/uL (0.7-4.9); Absolute Monocytes 0.6 K/uL (0.1-1.3); Absolute Neutrophil 3.6 K/uL (1.8-8.0); Basophils % 2.4 % (0-1.3); Eosinophils % 5.6 % (0-4.4); Hematocrit 30.8 % (39.6-49.0); Hemoglobin 10.1 g/dL (13.6-17.9); Lymphocytes % 16.9 % (15.3-44.8); MCH 28.5 pg (27.0-35.0); MCHC 32.7 g/dL (32.0-36.0); MPV 6.3 fL (7.6-11.3); Neutrophils % 64.1 % (41.7-73.7); Nucleated Red Blood Cells % 0.1 % (0-0); Platelets 285 thou/uL (152-406); RBC Red Blood Cell Count 3.54 M/uL (4.33-5.43); Red Cell Distribution Width 18.3 % (12.1-15.2)
[2024-09-16 17:55] LABS: PT Prothrombin Time 13.2 SECONDS (9.4-12.5); Protime INR 1.18
[2024-09-16 18:08] LABS: Albumin 3.3 g/dL (3.4-5.0); Albumin/Globulin Ratio 0.8 (1.1-1.8); Bilirubin Direct 0.2 mg/dL (0-0.2); Bilirubin Indirect, Calculated 0.4 mg/dL (0.2-0.8); Bilirubin Total 0.6 mg/dL (0.2-1.0); Globulin 4.4 g/dL (2.3-3.5); Protein, Total 7.7 g/dL (6.4-8.2); Troponin High Sensitivity 32.7 pg/mL (<58.9)
[2024-09-16] MEDS ORDERED: ASPIRIN 81 MG CHEWABLE TABLET ONE (18:32)
[2024-09-16] MEDS ORDERED: LORazepam 2 MG/ML VIAL ONE (18:53)
--- NOTE | 2024-09-16 20:14 | RAD REPORT ---
EXAM: Angio Aorta For Dissection HISTORY: [facility] MAIN none chest pain Bed Name: 7 COMPARISON: 06/16/2024 TECHNIQUE: Multiple contiguous axial images were obtained a CTA of the chest and abdomen with contras t per aortic dissection protocol. Sagittal and coronal 3-D MIP reformats were performed. One or more of the following dose reduction techniques were used: Automated exposure control, adjustment of the mA and kV according to patient size, and iterative reconstruction. Unless otherwise specified, incidental findings do not require dedicated imaging follow-up. FINDINGS: PULMONARY ARTERIES: Normal in caliber without filling defects to suggest pulmonary emboli. MEDIASTINUM: No hilar or mediastinal lymphadenopathy. Stable mild cardiomegaly LUNGS: No focal infiltrates or masses. PLEURAL SPACE: Small layering bilateral pleural effusions with mild subsegmental dependent atelectasi s. No pneumothorax. LIVER: Unremarkable. KIDNEYS: Atrophic changes with small size kidneys bilaterally. Mildly increased density of right inte rpolar exophytic 1.5 cm cortical lesion, could represent hemorrhagic changes within a cyst. SPLEEN: Unremarkable. PANCREAS: Ovoid cystic pancreatic head 2.3 x 1.9 cm lesion, stable, could represent an intrapancreati c post inflammatory cyst. Background atrophic changes and multifocal calcifications suggesting sequelae of chronic pancreatitis, stable. BOWEL: Unremarkable. RETROPERITONEUM: No lymphadenopathy Mild wall prominence of the decompressed urinary bladder, nonspecific. BONES: Degenerative changes in the spine. Moderate free ascites. Questionable mild enhancement of the visceral peritoneum especially in the rig ht pelvis. ASCENDING THORACIC AORTA: Normal caliber without evidence of dissection or aneurysmal dilatation. DESCENDING THORACIC AORTA: Normal caliber without evidence of dissection or aneurysmal dilatation. ABDOMINAL AORTA: Normal caliber without evidence of dissection or aneurysmal dilatation. Moderate multifocal atherosclerotic calcific plaque throughout the thoracic and abdominal aorta. CELIAC TRUNK: Patent SMA: Patent MARLENY: Patent RENAL ARTERIES: Severe narrowing at the ostia bilaterally, with sluggish flow. IMPRESSION: No evidence of thoracic or abdominal aortic aneurysm or dissection. Stable findings as above, including mild visceral filmlike enhancement of the peritoneum. Please kiran elate clinically for evidence of infectious or aseptic peritonitis..
--- NOTE | 2024-09-16 20:20 | ER ---
Nurse's Notes [facility] Name: Marcello Mcrae Jr Age: 63 yrs Sex: Male : 1960 Arrival Date: 09/16/2024 Time: 16:09 Bed 7 Private MD: Diagnosis: Chest pain, unspecified Presentation: 09/16 16:55 Chief complaint: Chest pressure and SOB that started on the way home from HD today. hb Coronavirus screen: At this time, the client does not indicate any symptoms associated with coronavirus-19. Ebola Screen: No symptoms or risks identified at this time. Initial Sepsis Screen: Does the patient meet any 2 criteria? No. Patient's initial sepsis screen is negative. Does the patient have a suspected source of infection? No. Patient's initial sepsis screen is negative. Risk Assessment: Do you want to hurt yourself or someone else? Patient reports no desire to harm self or others. Onset of symptoms was September 16, 2024. 16:55 Method Of Arrival: Ambulatory 16:55 Acuity: RITO 3 hb Triage Assessment: 17:00 General: Appears in no apparent distress. Behavior is calm, cooperative, appropriate bp for age. Pain: Complains of pain in chest. EENT: No deficits noted. Neuro: No deficits noted. Cardiovascular: Rhythm is sinus rhythm. Respiratory: No deficits noted. GI: No signs and/or symptoms were reported involving the gastrointestinal system. : No signs and/or symptoms were reported regarding the genitourinary system. Derm: No deficits noted. Musculoskeletal: No deficits noted. Historical: - Allergies: 16:56 Codeine; hb 16:56 Morphine; hb - PMHx: 16:56 End stage renal disease; Hypertensive disorder; Dialysis pt; hb - PSHx: 16:56 Peritoneal Catheter; Right chest HD cath; Left upper arm fistula; hb - Immunization history:: Adult Immunizations up to date. - Infectious Disease History:: Denies. - Social history:: Smoking status: unknown. Screenin:19 [facility] ED Fall Risk Assessment (Adult) History of falling in the last 3 months, bp including since admission No falls in past 3 months (0 pts) Confusion or Disorientation No (0 pts) Intoxicated or Sedated No (0 pts) Impaired Gait No (0 pts) Mobility Assist Device Used No (0 pt) Altered Elimination No (0 pt) Score/Fall Risk Level 0 - 2 = Low Risk Oriented to surroundings. Abuse screen: Denies threats or abuse. Denies injuries from another. Nutritional screening: No deficits noted. Tuberculosis screening: No symptoms or risk factors identified. Assessment: 18:19 General: SEE TRIAGE. bp 18:37 Reassessment: No changes from previously documented assessment. Patient and/or family ll1 updated on plan of care and expected duration. Pain level reassessed. 19:17 Reassessment: Patient appears in no apparent distress at this time. Patient and/or bm8 family updated on plan of care and expected duration. Pain level reassessed. Patient is alert, oriented x 3, equal unlabored respirations, skin warm/dry/pink. pt is resting with eyes closed breathing is even unlabored with symmetrical rise and fall of chest, denies pain, awaiting further imaging. Pain: Denies pain. 20:22 Reassessment: Patient appears in no apparent distress at this time. No changes from bm8 previously documented assessment. Patient and/or family updated on plan of care and expected duration. Pain level reassessed. Patient is alert, oriented x 3, equal unlabored respirations, skin warm/dry/pink. Patient states feeling better. Patient states symptoms have improved. Vital Signs: 16:55 BP 124 / 57; Pulse 88; Resp 20; Temp 98.5; Pulse Ox 100% on R/A; Pain 5/10; hb 19:17 BP 175 / 96; Pulse 68; Resp 18; Temp 98.5; Pulse Ox 98% ; Pain 0/10; bm8 20:22 BP 173 / 86; Pulse 76; Resp 17; Temp 98.5; Pulse Ox 95% ; Pain 0/10; bm8 16:55 Pain Scale: Adult hb 19:17 Pain Scale: Adult bm8 20:22 Pain Scale: Adult bm8 [place] Coma Score: 19:17 Eye Response: spontaneous(4). Motor Response: obeys commands(6). Verbal Response: bm8 oriented(5). Total: 15. 20:22 Eye Response: spontaneous(4). Motor Response: obeys commands(6). Verbal Response: bm8 oriented(5). Total: 15. ED Course: 16:15 Patient arrived in ED. mr 16:20 Diana Perkins MD is Attending Physician. gb1 16:51 XRAY Chest (1 view) In Process Unspecified. EDMS 16:56 Triage completed. hb 16:56 EKG done, by ED staff, reviewed by Diana Perkins MD. hb 17:38 Basic Metabolic Panel Sent. bc6 17:38 CBC with Diff Sent. bc6 17:38 LFT's Sent. bc6 17:38 NT PRO-BNP Sent. bc6 17:38 PT-INR Sent. bc6 17:38 Troponin HS Sent. bc6 17:38 Initial lab(s) drawn, by me, sent to lab. Inserted saline lock: 20 gauge in right bc6 antecubital area, using aseptic technique. Blood collected. Flushed with 10 mL NS. 18:17 Rey Subramanian, RN is Primary Nurse. bp 18:18 Arm band placed on. bp 18:19 Patient maintains SpO2 saturation greater than 95% on room air. bp 18:19 Patient has correct armband on for positive identification. Provided Education on: N/A. bp Client placed on continuous cardiac and pulse oximetry monitoring. NIBP monitoring applied. monitor tech on. Pulse ox on. NIBP on. 18:48 Bailey Goodman FNP-C is PHCP. kb 19:00 No provider procedures requiring assistance completed. bm8 19:00 Report received from hadley Le. bm8 19:00 Door closed. Noise minimized. Warm blanket given. Pillow given. Verbal reassurance bm8 given. Head of bed elevated. 19:26 CT Aorta for Dissection In Process Unspecified. EDMS 20:22 IV discontinued, intact, bleeding controlled, No redness/swelling at site. Pressure bm8 dressing applied. Administered Medications: 18:37 Drug: Aspirin PO Chewable Tablet 324 mg PO once; 81 mg tablets x 4 Route: PO; ll1 19:19 Follow up: Response: No adverse reaction bm8 18:58 Drug: Ativan IVP 0.5 mg IVP once Route: IVP; Site: right antecubital; ll1 19:19 Follow up: Response: No adverse reaction bm8 Medication: 18:19 VIS not applicable for this client. bp Outcome: 20:19 Discharge ordered by . kb 20:22 Discharged to home via wheelchair, bm8 20:22 Condition: stable 20:22 Discharge instructions given to patient, family, Instructed on discharge instructions, follow up and referral plans. no drinking with medication, no driving heavy equipment, medication usage, safety practices, Demonstrated understanding of instructions, follow-up care, medications, 20:27 Patient left the ED. bm8 Signatures: Dispatcher [employer] EDMS Bailey Goodman, SALES SERVICE TECHNICIAN-C SALES SERVICE TECHNICIAN-CkVenecia Grossman, Reg Reg mr Heidy Nelson, RN RN hb Rey Subramanian, RN RN bp Alicia Stevenson RN RN ll1 Shannan Vogt 6 Diana Perkins MD MD gb1 [place] Moss RN RN bm8
--- NOTE | 2024-09-16 20:20 | EDPHYS ---
Physician Documentation [facility] Name: Marcello Mcrae Jr Age: 63 yrs Sex: Male : 1960 Arrival Date: 09/16/2024 Time: 16:09 Bed 7 Private MD: ED Physician Diana Perkins HPI: 09/16 18:41 This 63 yrs old Male presents to ER via Ambulatory with complaints of Chest gb1 Pain, Shortness Of Breath. 18:41 63-year-old male with a history of aortic aneurysm, end-stage renal disease with gb1 hemodialysis Monday, hypertension is here with midsternal chest pain that radiates to his back. He has also has a history of anxiety and states this feels like that but he was referred here by his sql server consultant and his heart doctor. He is also short of breath with the chest pain. It is sharp and in the center of his chest.. Historical: - Allergies: 16:56 Codeine; hb 16:56 Morphine; hb - PMHx: 16:56 End stage renal disease; Hypertensive disorder; Dialysis pt; hb - PSHx: 16:56 Peritoneal Catheter; Right chest HD cath; Left upper arm fistula; hb - Immunization history:: Adult Immunizations up to date. - Infectious Disease History:: Denies. - Social history:: Smoking status: unknown. ROS: 20:20 Constitutional: As per HPI kb Exam: 18:41 Constitutional: This is a well developed, well nourished patient who is awake, alert, gb1 and in no acute distress. Head/Face: Normocephalic, atraumatic. Eyes: Pupils equal round and reactive to light, extra-ocular motions intact. Lids and lashes normal. Conjunctiva and sclera are non-icteric and not injected. Cornea within normal limits. Periorbital areas with no swelling, redness, or edema. ENT: Nares patent. No nasal discharge, no septal abnormalities noted. Tympanic membranes are normal and external auditory canals are clear. Oropharynx with no redness, swelling, or masses, exudates, or evidence of obstruction, uvula midline. Mucous membranes moist. Neck: Trachea midline, no thyromegaly or masses palpated, and no cervical lymphadenopathy. Supple, full range of motion without nuchal rigidity, or vertebral point tenderness. No Meningismus. Chest/axilla: Normal chest wall appearance and motion. Nontender with no deformity. No lesions are appreciated. Cardiovascular: Regular rate and rhythm with a normal S1 and S2. No gallops, murmurs, or rubs. Normal PMI, no JVD. No pulse deficits. Respiratory: Lungs have equal breath sounds bilaterally, clear to auscultation and percussion. No rales, rhonchi or wheezes noted. No increased work of breathing, no retractions or nasal flaring. Abdomen/GI: Soft, non-tender, with normal bowel sounds. No distension or tympany. No guarding or rebound. No evidence of tenderness throughout. Skin: Warm, dry with normal turgor. Normal color with no rashes, no lesions, and no evidence of cellulitis. MS/ Extremity: Pulses equal, no cyanosis. Neurovascular intact. Full, normal range of motion. Neuro: Awake and alert, GCS 15, oriented to person, place, time, and situation. Cranial nerves II-XII grossly intact. Motor strength 5/5 in all extremities. Sensory grossly intact. Cerebellar exam normal. Normal gait. Vital Signs: 16:55 BP 124 / 57; Pulse 88; Resp 20; Temp 98.5; Pulse Ox 100% on R/A; Pain 5/10; hb 19:17 BP 175 / 96; Pulse 68; Resp 18; Temp 98.5; Pulse Ox 98% ; Pain 0/10; bm8 20:22 BP 173 / 86; Pulse 76; Resp 17; Temp 98.5; Pulse Ox 95% ; Pain 0/10; bm8 16:55 Pain Scale: Adult hb 19:17 Pain Scale: Adult bm8 20:22 Pain Scale: Adult bm8 [place] Coma Score: 19:17 Eye Response: spontaneous(4). Motor Response: obeys commands(6). Verbal Response: bm8 oriented(5). Total: 15. 20:22 Eye Response: spontaneous(4). Motor Response: obeys commands(6). Verbal Response: bm8 oriented(5). Total: 15. MDM: 16:57 Medical Screening Exam initiated gb1 18:41 Data reviewed: vital signs, nurses notes. ED course: 63-year-old male with history of gb1 end-stage renal disease on hemodialysis, hypertension and hyperlipidemia as well as congestive heart failure started with chest pain and shortness of breath while at dialysis. He has a history of an aneurysm as well that is being monitored and he was sent here for evaluation for that. He does not present like an acute aortic dissection but I will order a CT to rule out. I doubt PE and no signs of congestive heart failure decompensated on the chest x-ray there is no acute pulmonary edema. I will discission this patient's care to [facility] as the patient will likely not be as good until after 1999. Disposition per the CT of the angiogram of the chest.. 20:18 Counseling: I had a detailed discussion with the patient and/or guardian regarding the kb historical points, exam findings, and any diagnostic results supporting the discharge/admit diagnosis, lab results, radiology results, the need for outpatient follow up, a family practitioner, to return to the emergency department if symptoms worsen or persist or if there are any questions or concerns that arise at home. 09/16 16:20 Order name: Basic Metabolic Panel; Complete Time: 18:37 gb1 09/16 16:20 Order name: CBC with Diff; Complete Time: 17:57 gb1 09/16 16:20 Order name: LFT's; Complete Time: 18:38 gb1 09/16 16:20 Order name: NT PRO-BNP; Complete Time: 18:38 gb1 09/16 16:20 Order name: PT-INR; Complete Time: 17:57 gb1 09/16 16:20 Order name: Troponin HS; Complete Time: 18:38 gb1 09/16 16:20 Order name: XRAY Chest (1 view); Complete Time: 17:57 gb1 09/16 18:41 Order name: CT Aorta for Dissection; Complete Time: 20:17 gb1 09/16 16:20 Order name: Cardiac monitoring; Complete Time: 18:20 gb1 09/16 16:20 Order name: EKG - Nurse/Tech; Complete Time: 18:20 gb1 09/16 16:20 Order name: IV Saline Lock; Complete Time: 17:38 gb1 09/16 16:20 Order name: Labs collected and sent; Complete Time: 17:38 gb1 09/16 16:20 Order name: O2 Per Protocol; Complete Time: 18:20 gb1 09/16 16:20 Order name: O2 Sat Monitoring; Complete Time: 18:20 gb1 Administered Medications: 18:37 Drug: Aspirin PO Chewable Tablet 324 mg PO once; 81 mg tablets x 4 Route: PO; ll1 19:19 Follow up: Response: No adverse reaction bm8 18:58 Drug: Ativan IVP 0.5 mg IVP once Route: IVP; Site: right antecubital; ll1 19:19 Follow up: Response: No adverse reaction bm8 Disposition Summary: 09/16/24 20:19 Discharge Ordered Notes: Location: Home kb Condition: Stable kb Diagnosis - Chest pain, unspecified kb Followup: kb - With: Emergency Department - When: As needed - Reason: Worsening of condition Followup: kb - With: Private Physician - When: 2 - 3 days - Reason: Recheck today's complaints, Continuance of care, Re-evaluation by your physician Discharge Instructions: - Discharge Summary Sheet kb - Nonspecific Chest Pain, Adult, [id number] kb Forms: - Medication Reconciliation Form kb - Antibiotic Education kb - Prescription Opioid Use kb - Patient Portal Instructions kb - Leadership Thank You Letter kb Signatures: Dispatcher [employer] EDMS Bailey Goodman, REGISTRATION COORDINATOR-C REGISTRATION COORDINATOR-Ckb Heidy Nelson RN RN Rey Subramanian RN RN bp Alicia Stevenson RN RN ll1 Diana Perkins MD MD gb1 Houston Moss RN bm8 Corrections: (The following items were deleted from the chart) 16:21 16:21 BASIC METABOLIC PANEL+C.LAB.BRZ ordered. EDMS EDMS 16:21 16:21 CBC+H.LAB.BRZ ordered. EDMS EDMS 16:21 16:21 HEPATIC FUNCTION+C.LAB.BRZ ordered. EDMS EDMS 16:21 16:21 PROBNP+C.LAB.BRZ ordered. EDMS EDMS 16:21 16:21 PROTIME (+INR)+COAG.LAB.BRZ ordered. EDMS EDMS 16:21 16:21 Troponin High Sensitivity+C.LAB.BRZ ordered. EDMS EDMS 16:21 16:21 Chest Single View+RAD.RAD.BRZ ordered. EDMS EDMS
[2024-09-17 02:11] VITALS: TEMP 98.5
[2024-09-17 02:14] VITALS: BP 173/86; O2SAT 95
--- NOTE | 2024-09-20 16:01 | EKG ---
Test Date: 2024-09-16 Test Time: 16:53:07 [employer]: HB MEASUREMENT RESULTS: Intervals: Rate: 72 FL: 130 QRSD: 106 QT: 502 QTc: 549 Russell: P: 56 FL: 130 QRS: -11 T: 66 INTERPRETIVE STATEMENTS: Sinus rhythm with frequent premature ventricular complexes Left atrial enlargement ST & T wave abnormality, consider lateral ischemia Prolonged QT Abnormal ECG Compared to ECG 07/30/2024 14:24:21 Ventricular premature complex(es) now present Possible ischemia now present ST (T wave) deviation still present Electronically Signed On 09-20-24 15:53:39 BED LASTER by Pineda Hopper
== END 2024-09-16 20:27 | disposition home or self-care (01) ==
LOC: ER 16:09
DX: R07.9 Chest pain, unspecified (principal); I12.0 Hypertensive chronic kidney disease with stage 5 chronic kidney disease or end stage renal disease; N18.6 End stage renal disease; Z99.2 Dependence on renal dialysis
CPT/HCPCS: 93005; 85025; 80048; 36415; 85610; 80076; 84484; 83880; 71275; 74175; 71045; 96374; 99285; Q9967

== ENCOUNTER 2024-09-19 15:12 | Emergency (ER) | payer OTHER ==
[2024-09-19] MEDS ORDERED: METOCLOPRAMIDE 5 MG TAB ONE (15:48)
--- NOTE | 2024-09-19 16:00 | RAD REPORT ---
EXAM: CT brain without contrast HISTORY: head injury COMPARISON: None TECHNIQUE: Multiple contiguous axial images were obtained and a CT of the brain without contrast. Sag ittal and coronal reformats were performed. One or more of the following dose reduction techniques were used: Automated exposure control, adjust ment of the mA and/or kV according to patient size, and/or iterative reconstruction. FINDINGS: No evidence of hydrocephalus, intracranial hemorrhage, or extra-axial fluid collection. The brain is normal in morphology. No evidence of midline shift or areas of brain edema. The calvarium is intact. The visualized paranasal sinuses and mastoid air cells are essentially clear . Vertebral atherosclerosis. IMPRESSION: No evidence of acute intracranial abnormality. EXAM: CT of the cervical spine without contrast HISTORY: Neck pain, injury head injury TECHNIQUE: Multiple contiguous axial images were obtained in a CT of the cervical spine without contr ast. Sagittal and coronal reformats were performed. FINDINGS: The vertebral bodies demonstrate normal height and alignment. No evidence of acute fracture or subluxation.. Mild lower cervical degenerative changes with small plate osteophytes. No prevertebral soft tissue swelling is seen. The posterior facets are well aligned. Normal alignment of the skull base with the cervical spine is seen. The lung apices are unremarkable. IMPRESSION: No evidence of acute osseous abnormality of the cervical spine.
[2024-09-19] MEDS ORDERED: hydrOXYzine HCL 25 MG TAB ONE (16:08)
[2024-09-19] MEDS ORDERED: KETOROLAC 30 MG/ML INJ ONE (16:09)
--- NOTE | 2024-09-19 16:24 | RAD REPORT ---
EXAMINATION: ONE VIEW CHEST XR CLINICAL INDICATION: GLF TECHNIQUE: Frontal chest projection is submitted. Examination is limited by patient positioning and t echnique. COMPARISON: 09/14/2024 FINDINGS: The lungs are diffusely emphysematous but grossly clear. The heart is upper limit of normal in size. No displaced fractures identified. Right-sided venous catheters tip in SVC. IMPRESSION: COPD without an acute process suspected.
--- NOTE | 2024-09-19 16:27 | ER ---
Nurse's Notes [facility] Name: Marcello Mcrae Jr Age: 63 yrs Sex: Male : 1960 Arrival Date: 09/19/2024 Time: 15:12 Bed 13 Private MD: Diagnosis: Headache;Concussion without loss of consciousness Presentation: 09/19 15:26 Chief complaint: EMS states: Tripped and fell, did hit head, states that he is unsure ph if he lost consciousness, c/o pain in face and head, no obvious injuries, 1000 mg Tylenol and 4 mg Zofran given. Coronavirus screen: Vaccine status: Patient reports being unvaccinated. Ebola Screen: No symptoms or risks identified at this time. Initial Sepsis Screen: Does the patient meet any 2 criteria? No. Patient's initial sepsis screen is negative. Does the patient have a suspected source of infection? No. Patient's initial sepsis screen is negative. Risk Assessment: Do you want to hurt yourself or someone else? Patient reports no desire to harm self or others. Onset of symptoms was September 19, 2024. 15:26 Method Of Arrival: EMS: [facility] 15:26 Acuity: RITO 4 ph Triage Assessment: 15:29 General: Appears in no apparent distress. Behavior is calm, cooperative, appropriate ph for age. Pain: Complains of pain in face and scalp. Neuro: Level of Consciousness is awake, alert, obeys commands, Oriented to person, place, time, situation. Cardiovascular: Capillary refill < 3 seconds in bilateral fingers. Respiratory: Airway is patent Respiratory effort is even, unlabored, Respiratory pattern is regular, symmetrical. GI:. Derm: Skin is pink, warm \T\ dry. Historical: - Allergies: 15:28 Codeine; ph 15:28 Morphine; ph - PMHx: 15:28 Dialysis pt; End stage renal disease; Hypertensive disorder; ph - PSHx: 15:28 Left upper arm fistula; Peritoneal Catheter; Right chest HD cath; ph - Immunization history:: Adult Immunizations unknown. - Infectious Disease History:: Denies. - Social history:: Smoking status: Patient denies any tobacco usage or history of. Screenin:30 [facility] ED Fall Risk Assessment (Adult) History of falling in the last 3 months, ph including since admission Yes- fall prone (multiple falls) (3 pts) Confusion or Disorientation No (0 pts) Intoxicated or Sedated No (0 pts) Impaired Gait No (0 pts) Mobility Assist Device Used No (0 pt) Altered Elimination No (0 pt) Score/Fall Risk Level 3 or more points = High Risk Oriented to surroundings, Maintained a safe environment, Used ambulatory aids as needed (educated on \T\ assisted with). Abuse screen: Denies threats or abuse. Denies injuries from another. Nutritional screening: No deficits noted. Tuberculosis screening: No symptoms or risk factors identified. Assessment: 15:59 General: SEE TRIAGE ASSESSMENT. ph 15:59 Reassessment: Patient appears in no apparent distress at this time. Patient and/or ph family updated on plan of care and expected duration. Pain level reassessed. Pt c/o anxiety and SOB, ERP notified, EKG done and given to provider. Vital Signs: 15:26 BP 164 / 95; Pulse 73; Resp 18; Temp 97; Pulse Ox 98% on R/A; ph 16:00 BP 179 / 93; Pulse 74; Resp 18; Pulse Ox 100% ; ph 17:00 BP 168 / 89; Pulse 72; Resp 18; Temp 97.6; Pulse Ox 99% on R/A; ph ED Course: 15:13 Patient arrived in ED. ec2 15:13 Amador Henao MD is Attending Physician. ec2 15:26 Jackie Tobar, RN is Primary Nurse. ph 15:28 Triage completed. ph 15:29 Arm band placed on. ph 15:30 Patient has correct armband on for positive identification. Bed in low position. Call ph light in reach. Side rails up X 1. Pulse ox on. NIBP on. 15:30 No provider procedures requiring assistance completed. ph 15:43 CT Head C Spine In Process Unspecified. EDMS 16:14 CXR XRAY In Process Unspecified. EDMS 17:00 IV discontinued, intact, bleeding controlled, No redness/swelling at site. Pressure ph dressing applied. Administered Medications: 15:59 Drug: MetoCLOPramide PO 10 mg PO once Route: PO; ph 16:51 Follow up: Response: No adverse reaction ph 16:25 Drug: hydrOXYzine PO 50 mg PO once Route: PO; ph 16:50 Follow up: Response: No adverse reaction ph 16:25 Drug: Ketorolac IVP 15 mg IVP once Route: IVP; Site: right forearm; ph 16:50 Follow up: Response: No adverse reaction ph Medication: 15:30 VIS not applicable for this client. ph Outcome: 16:27 Discharge ordered by . ec2 17:00 Discharged to home ambulatory, ph 17:00 Condition: good 17:00 Discharge instructions given to patient, Instructed on discharge instructions, follow up and referral plans. Demonstrated understanding of instructions, follow-up care, Prescriptions given X 1, 17:01 Patient left the ED. ph Signatures: Dispatcher [employer] Jackie De Paz RN RN ph Amador Henao MD MD ec2
--- NOTE | 2024-09-19 16:27 | EDPHYS ---
Physician Documentation [facility] Name: Marcello Mcrae Jr Age: 63 yrs Sex: Male : 1960 Arrival Date: 09/19/2024 Time: 15:12 Bed 13 Private MD: ED Physician Amador Henao HPI: 09/19 15:14 This 63 yrs old Male presents to ER via Unassigned with complaints of head ec2 injury. 15:14 Patient arrives today for evaluation of ground-level fall. Patient reports that he had ec2 fallen and struck his head. No LOC. Complaining of headache. No prodromal symptoms, no chest pain, no difficulty breathing, no abdominal pain, no nausea or vomiting.. Historical: - Allergies: 15:28 Codeine; ph 15:28 Morphine; ph - PMHx: 15:28 Dialysis pt; End stage renal disease; Hypertensive disorder; ph - PSHx: 15:28 Left upper arm fistula; Peritoneal Catheter; Right chest HD cath; ph - Immunization history:: Adult Immunizations unknown. - Infectious Disease History:: Denies. - Social history:: Smoking status: Patient denies any tobacco usage or history of. ROS: 15:14 Constitutional: as per hpi ec2 Exam: 15:14 Constitutional: GEN: No acute distress HEENT: -Head: no deformities -Eyes: EOMI CV: ec2 regular rate LUNGS: no respiratory distress ABD: non-tender SKIN: no wounds appreciated MSK: No C/T/L spine deformities RUE w/o bony deformity LUE w/o bony deformity RLE w/o bony deformity LLE w/o bony deformity NEURO: moves all extremities equally, GCS 15 (E4, V5, M6) Vital Signs: 15:26 BP 164 / 95; Pulse 73; Resp 18; Temp 97; Pulse Ox 98% on R/A; ph 16:00 BP 179 / 93; Pulse 74; Resp 18; Pulse Ox 100% ; ph 17:00 BP 168 / 89; Pulse 72; Resp 18; Temp 97.6; Pulse Ox 99% on R/A; ph MDM: 15:13 Medical Screening Exam initiated ec2 15:14 Data reviewed: vital signs, nurses notes. ED course: Patient arrives today for head ec2 injury. Examination yields reassuring examination. Will obtain CT scan of the head. Patient given Tylenol and Zofran by EMS. Will give the patient Reglan as well. Suspect head injury, doubt fracture, doubt intracranial bleed. 16:00 ED course: EKG independently reviewed and interpreted by me, shows normal sinus rhythm, ec2 rate of 71, no acute ST segment elevations, intervals are nonactionable, motion artifact noted,. 16:02 ED course: CT scan of the head and C-spine without acute traumatic process.. ec2 16:26 ED course: Chest x-ray and CT scan negative for acute pathology. On reassessment ec2 patient is well-appearing no acute distress. Will discharge home. Return precautions given.. 09/19 15:13 Order name: CT Head C Spine; Complete Time: 16:02 ec2 09/19 15:14 Order name: CXR XRAY; Complete Time: 16:26 ec2 Administered Medications: 15:59 Drug: MetoCLOPramide PO 10 mg PO once Route: PO; ph 16:51 Follow up: Response: No adverse reaction ph 16:25 Drug: hydrOXYzine PO 50 mg PO once Route: PO; ph 16:50 Follow up: Response: No adverse reaction ph 16:25 Drug: Ketorolac IVP 15 mg IVP once Route: IVP; Site: right forearm; ph 16:50 Follow up: Response: No adverse reaction ph Disposition Summary: 09/19/24 16:27 Discharge Ordered Notes: Location: Home ec2 Condition: Stable ec2 Diagnosis - Headache ec2 - Concussion without loss of consciousness ec2 Followup: ec2 - With: Private Physician - When: - Reason: Re-evaluation by your physician Discharge Instructions: - Discharge Summary Sheet ec2 - Concussion, Adult, [id number] ec2 Forms: - Medication Reconciliation Form ec2 - Antibiotic Education ec2 - Prescription Opioid Use ec2 - Patient Portal Instructions ec2 - Leadership Thank You Letter ec2 Prescriptions: - Compazine 10 mg Oral Tablet - take 1 tablet ORAL route every 8 hours As needed; 20 tablet; Refills: 0, ec2 Product Selection Permitted Signatures: Dispatcher [employer] Jackie De Paz RN RN ph Earlene, MD JOHNSON English ec2 Corrections: (The following items were deleted from the chart) 15:14 15:14 Head C Spine MPR Wo Con+CT.RAD.BRZ ordered. EDMS EDMS 16:28 16:27 Concussion with loss of consciousness of unspecified duration ec2 ec2
[2024-09-19 17:27] VITALS: BP 168/89; TEMP 97.6; O2SAT 99
--- NOTE | 2024-09-20 15:46 | EKG ---
Test Date: 2024-09-19 Test Time: 15:55:11 [employer]: DENNY MEASUREMENT RESULTS: Intervals: Rate: 71 GA: 150 QRSD: 90 QT: 406 QTc: 441 Ace: P: 79 GA: 150 QRS: 33 T: 71 INTERPRETIVE STATEMENTS: Normal sinus rhythm with sinus arrhythmia Anterior infarct, age undetermined ST & T wave abnormality, consider lateral ischemia Abnormal ECG Compared to ECG 09/16/2024 16:53:07 Myocardial infarct finding now present Ventricular premature complex(es) no longer present Atrial abnormality no longer present Prolonged QT interval no longer present ST (T wave) deviation still present Possible ischemia still present Electronically Signed On 09-20-24 15:45:34 INSURANCE LOSS CONTROL SURVEYOR by Pineda Hopper
== END 2024-09-19 17:01 | disposition home or self-care (01) ==
LOC: ER 15:12
DX: S06.0X0A Concussion without loss of consciousness, initial encounter (principal); W18.30XA Fall on same level, unspecified, initial encounter; Y93.9 Activity, unspecified; Y92.9 Unspecified place or not applicable
CPT/HCPCS: 70450; 71045; 72125; 93005; 96374; 99284

== ENCOUNTER 2024-11-17 19:47 | Emergency (ER) | payer OTHER ==
[2024-11-17] MEDS ORDERED: HYDROMORPHONE HCL 0.5 MG/0.5 ML INJ ONE ×2 (20:39→21:46)
[2024-11-17] MEDS ORDERED: ONDANSETRON 4 MG/2 ML VIAL ONE (20:39)
[2024-11-17] MEDS ORDERED: LORazepam 2 MG/ML VIAL ONE (20:40)
[2024-11-17] MEDS ORDERED: HYDRALAZINE HCL 20 MG/ML VIAL ONE (20:40)
[2024-11-17 20:42] LABS: Absolute Basophils 0.1 K/uL (0-0.5); Absolute Eosinophils 0.4 K/uL (0-0.5); Absolute Lymphocytes (CBC) 0.8 K/uL (0.7-4.9); Absolute Monocytes 0.8 K/uL (0.1-1.3); Absolute Neutrophil 6.3 K/uL (1.8-8.0); Basophils % 0.8 % (0-1.3); Eosinophils % 5.3 % (0-4.4); Hematocrit 29.1 % (39.6-49.0); Hemoglobin 9.7 g/dL (13.6-17.9); Lymphocytes % 9.2 % (15.3-44.8); MCH 30.4 pg (27.0-35.0); MCHC 33.2 g/dL (32.0-36.0); MCV 91.6 fL (80-100); MPV 7.3 fL (7.6-11.3); Monocytes % 9.2 % (3.3-12.3); Neutrophils % 75.5 % (41.7-73.7); Nucleated Red Blood Cells % 0.1 % (0-0); Platelets 306 thou/uL (152-406); RBC Red Blood Cell Count 3.18 M/uL (4.33-5.43); Red Cell Distribution Width 17.4 % (12.1-15.2)
--- NOTE | 2024-11-17 20:42 | EDPHYS ---
Physician Documentation [facility] Name: Marcello Mcrae Jr Age: 64 yrs Sex: Male : 1960 Arrival Date: 11/17/2024 Time: 19:47 Bed 2 Private MD: ED Physician Adalid Palencia HPI: 11/17 20:30 This 64 yrs old Male presents to ER via Unassigned with complaints of nancy bleeding av fistula, recurrent , sp revisions. 20:30 The patient or guardian complains of pain. The complaints affect the left bicep. nancy Context: The problem was sustained at home. Onset: The symptoms/episode began/occurred just prior to arrival, today. Treatment prior to arrival includes: emily wrap, elevation of the extremity, tourniquet by ems. Modifying factors: The symptoms are alleviated by nothing. the symptoms are aggravated by movement, lifting weight, bending arm. Associated signs and symptoms: The patient has no apparent associated signs or symptoms. Severity of symptoms: At their worst the symptoms were moderate, in the emergency department the symptoms are unchanged. The patient has not experienced similar symptoms in the past. Historical: - Allergies: 19:50 Codeine; br2 21:08 Morphine; br2 - PMHx: 21:08 Dialysis pt; End stage renal disease; Hypertensive disorder; br2 - Immunization history:: Adult Immunizations up to date. - Infectious Disease History:: Denies. - Family history:: not pertinent. - Social history:: Smoking status: Patient reports the use of cigarette tobacco products, smokes one pack cigarettes per day. ROS: 20:30 Constitutional: Negative for fever, chills, and weight loss, Eyes: Negative for injury, nancy pain, redness, and discharge, ENT: Negative for injury, pain, and discharge, Neck: Negative for injury, pain, and swelling, Cardiovascular: Negative for chest pain, palpitations, and edema, Respiratory: Negative for shortness of breath, cough, wheezing, and pleuritic chest pain, Abdomen/GI: Negative for abdominal pain, nausea, vomiting, diarrhea, and constipation, Back: Negative for injury and pain, : Negative for injury, bleeding, discharge, and swelling, Skin: Negative for injury, rash, and discoloration, Neuro: Negative for headache, weakness, numbness, tingling, and seizure, Psych: Negative for depression, anxiety, suicide ideation, homicidal ideation, and hallucinations, Allergy/Immunology: Negative for hives, rash, and allergies, Endocrine: Negative for neck swelling, polydipsia, polyuria, polyphagia, and marked weight changes, Hematologic/Lymphatic: Negative for swollen nodes, abnormal bleeding, and unusual bruising, 20:30 MS/extremity: Positive for pain, heavy bleeding at suture line, Exam: 20:30 Constitutional: This is a well developed, well nourished patient who is awake, alert, nancy and in no acute distress. Head/Face: Normocephalic, atraumatic. Eyes: Pupils equal round and reactive to light, extra-ocular motions intact. Lids and lashes normal. Conjunctiva and sclera are non-icteric and not injected. Cornea within normal limits. Periorbital areas with no swelling, redness, or edema. ENT: Nares patent. No nasal discharge, no septal abnormalities noted. Tympanic membranes are normal and external auditory canals are clear. Oropharynx with no redness, swelling, or masses, exudates, or evidence of obstruction, uvula midline. Mucous membranes moist. Neck: Trachea midline, no thyromegaly or masses palpated, and no cervical lymphadenopathy. Supple, full range of motion without nuchal rigidity, or vertebral point tenderness. No Meningismus. Chest/axilla: Normal chest wall appearance and motion. Nontender with no deformity. No lesions are appreciated. Cardiovascular: Regular rate and rhythm with a normal S1 and S2. No gallops, murmurs, or rubs. Normal PMI, no JVD. No pulse deficits. Respiratory: Lungs have equal breath sounds bilaterally, clear to auscultation and percussion. No rales, rhonchi or wheezes noted. No increased work of breathing, no retractions or nasal flaring. Abdomen/GI: Soft, non-tender, with normal bowel sounds. No distension or tympany. No guarding or rebound. No evidence of tenderness throughout. Back: No spinal tenderness. No costovertebral tenderness. Full range of motion. Neuro: Awake and alert, GCS 15, oriented to person, place, time, and situation. Cranial nerves II-XII grossly intact. Motor strength 5/5 in all extremities. Sensory grossly intact. Cerebellar exam normal. Normal gait. Psych: Awake, alert, with orientation to person, place and time. Behavior, mood, and affect are within normal limits. 20:30 Skin: injury, 2 times av fistula repair at [facility] , dr hammond, Vital Signs: 19:50 BP 185 / 83; Pulse 63; Resp 18; Temp 98.4(O); Pulse Ox 98% on 4 lpm NC; Weight 65.77 br2 kg; Height 5 ft. 9 in. ; Pain 10/10; 21:00 BP 160 / 83; Pulse 76; Resp 18; Pulse Ox 100% on R/A; br2 21:30 BP 183 / 83; Pulse 63; Resp 18; Pulse Ox 98% on 3 lpm NC; br2 21:30 BP 191 / 81; Pulse 71; Resp 18; Pulse Ox 100% 3 lpm ; br2 19:50 Body Mass Index 21.41 (65.77 kg, 175.26 cm) br2 19:50 Pain Scale: Adult br2 MDM: 19:56 Medical Screening Exam initiated nancy 21:34 Differential diagnosis: closed fracture. Data reviewed: vital signs, nurses notes, lab [facility] test result(s), EKG, radiologic studies, plain films. Consideration of Admission/Observation Escalation of care including admission/observation considered. I considered the following discharge prescriptions or medication management in the emergency department Medications were administered in the Emergency Department. See MAR. Independent interpretation of the following test(s) in the Emergency Department EKG: See my EKG interpretation above. Test considered but Not performed: Ultrasound no doppler. Historians other than the Patient: EMS: ems well informed. Spouse/Significant Other: well informed. Care significantly affected by the following chronic conditions: Hypertension, Chronic Kidney Disease, esrd on hd , m,w,f. 11/17 20:22 Order name: Type And Screen [facility] 11/17 20:22 Order name: CBC with Diff; Complete Time: 21:14 [facility] 11/17 20:22 Order name: CMP; Complete Time: 21:14 [facility] 11/17 20:22 Order name: Lipase; Complete Time: 21:14 [facility] 11/17 20:23 Order name: Ptt, Activated; Complete Time: 21:14 [facility] 11/17 20:23 Order name: PT-INR; Complete Time: 21:14 [facility] 11/17 21:16 Order name: Potassium; Complete Time: 22:09 [facility] 11/17 21:17 Order name: Troponin High Sensitivity; Complete Time: 22:09 [facility] 11/17 22:37 Order name: Potassium; Complete Time: 23:14 [facility] 11/17 22:37 Order name: Potassium [facility] 11/17 21:17 Order name: Chest Single View XRAY; Complete Time: 22:54 [facility] 11/17 19:57 Order name: Dressing - Wound; Complete Time: 20:34 [facility] 11/17 19:57 Order name: Gloves, Sterile; Complete Time: 20:34 [facility] 11/17 19:57 Order name: Prolene, Sutures; Complete Time: 20:34 [facility] 11/17 19:57 Order name: Setup Suture Tray; Complete Time: 20:34 [facility] 11/17 20:22 Order name: IV Saline Lock; Complete Time: 20:34 [facility] 11/17 20:22 Order name: Labs collected and sent; Complete Time: 20:34 [facility] 11/17 20:28 Order name: NPO; Complete Time: 20:34 [facility] 11/17 21:17 Order name: EKG - Nurse/Tech; Complete Time: 21:53 [facility] 11/17 23:15 Order name: Blood Glucose Level; Complete Time: 23:31 nancy Administered Medications: 20:53 Drug: hydrALAZINE IVP 10 mg IVP once Route: IVP; Site: left forearm; cp4 22:22 Follow up: Response: No adverse reaction cp4 20:54 Drug: Ondansetron IVP 8 mg IVP once; over 2 minutes Route: IVP; Site: right forearm; cp4 22:22 Follow up: Response: No adverse reaction cp4 20:54 Drug: Ativan IVP 0.5 mg IVP once Route: IVP; Site: right forearm; cp4 22:22 Follow up: Response: No adverse reaction cp4 20:54 Drug: HYDROmorphone IVP 0.5 mg IVP once Route: IVP; Site: left forearm; cp4 22:22 Follow up: Response: No adverse reaction cp4 20:55 Drug: ceFAZolin IVPB 1 grams IVPB once Route: IVPB; Site: right forearm; cp4 21:00 Follow up: IV Status: Completed infusion cp4 21:00 Drug: HYDROmorphone IVP 0.5 mg IVP once Route: IVP; Site: right antecubital; br2 22:00 Follow up: Response: No adverse reaction br2 21:45 Drug: Kayexalate PO 15 grams PO once Route: PO; br2 22:15 Follow up: Response: No adverse reaction br2 21:45 Drug: Albuterol Inhalation 2.5 mg Inhalation once Route: Inhalation; br2 22:15 Follow up: Response: No adverse reaction br2 21:51 Drug: Insulin Regular Human IVP 10 units IVP once {Co-Signature: jb4 Slim Hutchison RN).} Route: IVP; Site: right antecubital; 22:30 Follow up: Response: No adverse reaction br2 21:51 Drug: Kayexalate PO 45 grams PO once Route: PO; br2 22:30 Follow up: Response: No adverse reaction br2 21:53 Drug: Calcium Gluconate IVPB 1 grams IVPB once over 10 mins; (mix in NS 100 mL) Route: br2 IVPB; Infused Over: 10 mins; Site: right antecubital; 22:30 Follow up: Response: No adverse reaction; IV Intake: 50ml br2 21:53 Drug: Albuterol Inhalation 5 mg Inhalation once Route: Inhalation; br2 21:53 Drug: D50W IVP 50 ml IVP once; (1 amp) Route: IVP; Site: right antecubital; br2 22:30 Follow up: Response: No adverse reaction br2 23:31 Drug: D50W IVP 50 ml IVP once; (1 amp) Route: IVP; Site: right antecubital; br2 23:32 Follow up: Response: Medication administered at discharge. br2 23:31 Drug: Insulin Regular Human IVP 5 units IVP once {Co-Signature: cp4 .} Route: IVP; Site: right antecubital; 23:32 Follow up: Response: Medication administered at discharge. br2 23:31 Drug: Furosemide IVP 100 mg IVP once; give over 2 minutes Route: IVP; Site: right br2 antecubital; 11/18 03:53 Follow up: Response: Medication administered at discharge. br2 Point of Care Testing: Blood Glucose: 11/17 23:30 Blood Glucose: 44 mg/dL; br2 Ranges: Critical Glucose Levels:Adult <50 mg/dl or >400 mg/dl <40 mg/dl or >180 mg/dl Disposition Summary: 11/17/24 20:41 Transfer Ordered Notes: Transfer Location: [facility] nancy Reason: Higher level of care nancy Condition: Stable nancy Problem: new nancy Symptoms: have improved nancy Accepting Physician: to vascular, cv imu(11/17/24 23:33) br2 Diagnosis - Postprocedural hemorrhage of a circulatory system organ or structure following nancy other procedure - AV FISTULA REPAIR - Dependence on renal dialysis nancy - Hyperkalemia - 8.2. 7.7, 6.9(11/17/24 23:14) nancy Forms: - Medication Reconciliation Form nancy - SBAR form nancy Signatures: Dispatcher [employer] EDMS Adalid Palencia MD MD cha Ayala, Heidy RN RN ha1 Martita Mera cp4 Maida Jones RN RN br2 Slim Redman RN jb4 Martita Mera cp4 Corrections: (The following items were deleted from the chart) 20:23 20:23 PTT, ACTIVATED+COAG.LAB.BRZ ordered. EDMS EDMS 21:16 21:16 POTASSIUM+C.LAB.BRZ ordered. EDMS EDMS 21:17 21:17 Chest Single View+RAD.RAD.BRZ ordered. EDMS EDMS 21:18 21:17 Troponin High Sensitivity+C.LAB.BRZ ordered. EDMS EDMS 21:33 20:41 to vascular nancy nancy 21:33 21:33 to vascular nancy nancy 22:43 20:25 ABO/RH typing ordered. EDMS EDMS 22:43 20:25 Antibody Screen ordered. EDMS EDMS 22:44 20:25 Packed RBC Leukored ordered. EDMS EDMS 23:14 21:33 Hyperkalemia - 8.2 nancy nancy 23:14 21:33 to vascular, cv imu nancy nancy 23:33 23:14 to vascular, cv imu nancy br2
[2024-11-17 20:47] LABS: PT Prothrombin Time 13.2 SECONDS (9.4-12.5); PTT, Activated Partial Thromb 36.3 SECONDS (24.3-36.9); Protime INR 1.26
[2024-11-17] MEDS ORDERED: NA CHLORIDE 0.9% 50 ML ONE (20:49)
[2024-11-17] MEDS ORDERED: CEFAZOLIN SODIUM 1 GM/VIAL ONE (20:49)
[2024-11-17 21:04] LABS: Albumin 2.7 g/dL (3.4-5.0); Albumin/Globulin Ratio 0.8 (1.1-1.8); Anion Gap 13.2 mEq/L (5.0-15.0); Bilirubin Total 0.4 mg/dL (0.2-1.0); Globulin 3.2 g/dL (2.3-3.5); Potassium 8.2 mEq/L (3.5-5.1); Protein, Total 5.9 g/dL (6.4-8.2)
[2024-11-17] MEDS ORDERED: ALBUTEROL 2.5 MG/3 ML NEB SOL ONE (21:20)
[2024-11-17] MEDS ORDERED: INSULIN REGULAR (HUMAN) 100 UNIT/ML ONE ×2 (21:21→23:15)
[2024-11-17] MEDS ORDERED: SOD POLYSTYREN SUL 15 GM/60 ML UCUP ONE (21:22)
[2024-11-17] MEDS ORDERED: D50W 25 GM/50 ML SYRINGE IV ONE ×2 (21:23→23:16)
[2024-11-17] MEDS ORDERED: CALCIUM GLUCONATE 1 GM IVPB 1 GM/50 ML BAG IV ONE (21:33)
[2024-11-17 22:04] LABS: Troponin High Sensitivity 21.2 pg/mL (<58.9)
[2024-11-17 22:08] LABS: Potassium 7.7 mEq/L (3.5-5.1)
--- NOTE | 2024-11-17 22:39 | RAD REPORT ---
EXAMINATION: ONE VIEW CHEST XR CLINICAL INDICATION: COUGH TECHNIQUE: Frontal chest projection is submitted. Examination is limited by patient positioning and t echnique. COMPARISON: 09/19/2024 FINDINGS: [id number] bilateral pulmonary opacities are present likely representing pulmonary edema. The h eart is moderately enlarged. No displaced fractures identified. Right-sided venous catheters tip in SVC.
[2024-11-17] MEDS ORDERED: FUROSEMIDE 100 MG/10 ML VIAL IV ONE (23:15)
--- NOTE | 2024-11-17 23:33 | ER ---
Nurse's Notes [facility] Name: Marcello Mcrae Jr Age: 64 yrs Sex: Male : 1960 Arrival Date: 11/17/2024 Time: 19:47 Bed 2 Private MD: Diagnosis: Postprocedural hemorrhage of a circulatory system organ or structure following other procedure-AV FISTULA REPAIR;Dependence on renal dialysis;Hyperkalemia-8.2. 7.7, 6.9 Presentation: 11/17 19:50 Chief complaint: Patient states: PT HAD FISTULA REVISED 2 WEEKS AGO AT [facility]. PT br2 HAD TO RETURN TWO WEEKS LATER DUE TO FISTULA BLEEDING AND TODAY HIS WAS HELPING HIM CHANGE AND FISTULA BEGAN TO BLEED PT ARRIVES WITH TOURNIQUET AND MULTIPLE BANDAGE IN PLACE. BANDAGE ARE SATURATIED. PT RECEIVED FENTANYL 50MCG X2 AND LABETALOL 50 MG IV PRIO TO ARRIVAL. Coronavirus screen: Client denies travel out of the [place] in the last 14 days. Ebola Screen: Patient denies exposure to infectious person. Initial Sepsis Screen: Does the patient meet any 2 criteria? No. Patient's initial sepsis screen is negative. Does the patient have a suspected source of infection? No. Patient's initial sepsis screen is negative. Risk Assessment: Do you want to hurt yourself or someone else? Patient reports no desire to harm self or others. Onset of symptoms. 19:50 Acuity: RITO 2 br2 21:02 Method Of Arrival: EMS: [facility] br2 Triage Assessment: 19:50 General: Appears distressed, uncomfortable, Behavior is anxious, restless. Pain: Denies br2 pain. Historical: - Allergies: 19:50 Codeine; br2 21:08 Morphine; br2 - PMHx: 21:08 Dialysis pt; End stage renal disease; Hypertensive disorder; br2 - Immunization history:: Adult Immunizations up to date. - Infectious Disease History:: Denies. - Family history:: not pertinent. - Social history:: Smoking status: Patient reports the use of cigarette tobacco products, smokes one pack cigarettes per day. Screenin:22 [facility] ED Fall Risk Assessment (Adult) History of falling in the last 3 months, br2 including since admission No falls in past 3 months (0 pts) Confusion or Disorientation No (0 pts) Intoxicated or Sedated No (0 pts) Impaired Gait No (0 pts) Mobility Assist Device Used Yes (1 pt) Altered Elimination No (0 pt) Score/Fall Risk Level 0 - 2 = Low Risk Oriented to surroundings. Abuse screen: Denies threats or abuse. Denies injuries from another. Nutritional screening: No deficits noted. Tuberculosis screening: No symptoms or risk factors identified. Assessment: 19:50 Reassessment: SEE TRIAGE ASSESSMENT. br2 22:10 Reassessment: DR COOLEY AT BEDSIDE. TOURNIQUET REMOVED ALONG WITH BANDAGES. SUICEL br2 APPLIED BY DR COOLEY ALONG WITH MULTIPLE 4X4 AND STELLA BANDAGE. BLEEDING STOPPED. PT C/O PAIN TO ARM. Vital Signs: 19:50 BP 185 / 83; Pulse 63; Resp 18; Temp 98.4(O); Pulse Ox 98% on 4 lpm NC; Weight 65.77 br2 kg; Height 5 ft. 9 in. ; Pain 10/10; 21:00 BP 160 / 83; Pulse 76; Resp 18; Pulse Ox 100% on R/A; br2 21:30 BP 183 / 83; Pulse 63; Resp 18; Pulse Ox 98% on 3 lpm NC; br2 21:30 BP 191 / 81; Pulse 71; Resp 18; Pulse Ox 100% 3 lpm ; br2 19:50 Body Mass Index 21.41 (65.77 kg, 175.26 cm) br2 19:50 Pain Scale: Adult br2 ED Course: 19:52 Patient arrived in ED. rv1 19:56 Adalid Cooley MD is Attending Physician. nancy 20:24 Initiated transfer with Patricia at [facility]. rv1 20:35 Doc to Doc with vascular sx at . rv1 20:40 Awaiting repeat Potassium before patient transfer. rv1 20:[address] Wright to [facility]. Report #[id number]. rv1 20:59 Maida Jones, NIDA is Primary Nurse. br2 21:08 Triage completed. br2 21:[address] Wright and Dr. Cooley. rv1 21:[address] Wright and Dr. Cooley. rv1 21:56 EKG done, by ED staff, reviewed by Adalid Cooley MD. oe 22:22 Inserted Maintain EMS IV. Dressing intact. Site clean \T\ dry. Gauge \T\ site: 18G RT AC. br 2 22:22 Patient has correct armband on for positive identification. Call light in reach. Side br2 rails up X 1. Provided Education on: PLAN OF CARE. 22:30 Awaiting another repeat Potassium. rv1 22:35 Chest Single View XRAY In Process Unspecified. EDMS 22:52 Potassium Sent. br2 22:52 Potassium Sent. br2 22:[address] Wright and Dr. Cooley. rv1 23:30 Report given to REPORT GIVEN TO WITNESS, RN AND CHASE TORREZ. br2 23:33 Assisted provider with: FISTULA BLEED. Patient transferred, IV remains in place. br2 Administered Medications: 20:53 Drug: hydrALAZINE IVP 10 mg IVP once Route: IVP; Site: left forearm; cp4 22:22 Follow up: Response: No adverse reaction cp4 20:54 Drug: Ondansetron IVP 8 mg IVP once; over 2 minutes Route: IVP; Site: right forearm; cp4 22:22 Follow up: Response: No adverse reaction cp4 20:54 Drug: Ativan IVP 0.5 mg IVP once Route: IVP; Site: right forearm; cp4 22:22 Follow up: Response: No adverse reaction cp4 20:54 Drug: HYDROmorphone IVP 0.5 mg IVP once Route: IVP; Site: left forearm; cp4 22:22 Follow up: Response: No adverse reaction cp4 20:55 Drug: ceFAZolin IVPB 1 grams IVPB once Route: IVPB; Site: right forearm; cp4 21:00 Follow up: IV Status: Completed infusion cp4 21:00 Drug: HYDROmorphone IVP 0.5 mg IVP once Route: IVP; Site: right antecubital; br2 22:00 Follow up: Response: No adverse reaction br2 21:45 Drug: Kayexalate PO 15 grams PO once Route: PO; br2 22:15 Follow up: Response: No adverse reaction br2 21:45 Drug: Albuterol Inhalation 2.5 mg Inhalation once Route: Inhalation; br2 22:15 Follow up: Response: No adverse reaction br2 21:51 Drug: Insulin Regular Human IVP 10 units IVP once {Co-Signature: jb4 (Slim Redman RN).} Route: IVP; Site: right antecubital; 22:30 Follow up: Response: No adverse reaction br2 21:51 Drug: Kayexalate PO 45 grams PO once Route: PO; br2 22:30 Follow up: Response: No adverse reaction br2 21:53 Drug: Calcium Gluconate IVPB 1 grams IVPB once over 10 mins; (mix in NS 100 mL) Route: br2 IVPB; Infused Over: 10 mins; Site: right antecubital; 22:30 Follow up: Response: No adverse reaction; IV Intake: 50ml br2 21:53 Drug: Albuterol Inhalation 5 mg Inhalation once Route: Inhalation; br2 21:53 Drug: D50W IVP 50 ml IVP once; (1 amp) Route: IVP; Site: right antecubital; br2 22:30 Follow up: Response: No adverse reaction br2 23:31 Drug: D50W IVP 50 ml IVP once; (1 amp) Route: IVP; Site: right antecubital; br2 23:32 Follow up: Response: Medication administered at discharge. br2 23:31 Drug: Insulin Regular Human IVP 5 units IVP once {Co-Signature: cp4 (carolyn Mera).} Route: IVP; Site: right antecubital; 23:32 Follow up: Response: Medication administered at discharge. br2 23:31 Drug: Furosemide IVP 100 mg IVP once; give over 2 minutes Route: IVP; Site: right br2 antecubital; 11/18 03:53 Follow up: Response: Medication administered at discharge. br2 Point of Care Testing: Blood Glucose: 11/17 23:30 Blood Glucose: 44 mg/dL; br2 Ranges: Intake: 22:30 IV: 50ml; Total: 50ml. br2 Outcome: 20:41 ER care complete, transfer ordered by . nancy 23:33 Patient left the ED. br2 23:33 Transferred by ground EMS to [facility], Transfer form completed. X-rays sent br2 w/ patient. 23:33 Condition: improved 23:33 Instructed on the need for transfer, Signatures: Dispatcher [employer] Adalid Pryor MD MD cha Espinosa, Orlando oe Villegas, Rebecca rv1 Martita Mera cp4 Maida Jones RN RN br2 Slim Redman RN jb4 Martita Mera cp4 Corrections: (The following items were deleted from the chart) 22:28 19:50 Chief complaint: Patient states: PT HAD FISTULA REVISED 2 WEEKS AGO AT [facility]. br2 PT HAD TO RETURN TWO WEEKS LATER DUE TO FISTULA BLEEDING AND TODAY HIS WAS HELPING HIM CHANGE AND FISTULA BEGAN TO BLEED PT ARRIVES WITH TOURNIQUET AND MULTIPLE BANDAGE IN PLACE. DR COOLEY NOTIFIED BANDAGE ARE SATURATIED. br2 11/18 07:00 06:59 Report given to REPORT GIVEN TO OMAYRA, NIDA AND [facility] br2 br2
[2024-11-17 23:37] VITALS: TEMP 98.4
[2024-11-17 23:38] VITALS: O2SAT 100
[2024-11-17 23:40] VITALS: BP 191/81
--- NOTE | 2024-11-19 12:46 | EKG ---
Test Date: 2024-11-17 Test Time: 21:28:58 [employer]: [facility] MEASUREMENT RESULTS: Intervals: Rate: 67 WV: 160 QRSD: 112 QT: 428 QTc: 452 [place]: P: 50 WV: 160 QRS: -54 T: 96 INTERPRETIVE STATEMENTS: Normal sinus rhythm with sinus arrhythmia Possible Left atrial enlargement Left axis deviation Incomplete left bundle branch block Nonspecific T wave abnormality Abnormal ECG Compared to ECG 09/19/2024 15:55:11 Left-axis deviation now present Left bundle-branch block now present T-wave abnormality now present Myocardial infarct finding no longer present ST (T wave) deviation no longer present Possible ischemia no longer present Electronically Signed On 11-19-24 12:42:[address] [employer] by Pineda Hopper
== END 2024-11-17 23:33 | disposition short-term general hospital (02) ==
LOC: ER 19:47
DX: I97.618 Postprocedural hemorrhage of a circulatory system organ or structure following other circulatory system procedure (principal); E87.5 Hyperkalemia; Z99.2 Dependence on renal dialysis; I12.0 Hypertensive chronic kidney disease with stage 5 chronic kidney disease or end stage renal disease; N18.6 End stage renal disease; F17.210 Nicotine dependence, cigarettes, uncomplicated
CPT/HCPCS: 93005; 85025; 36415; 86900; 86850; 84132 ×2; 85610; 86901; 82947; 85730; 84484; 83690; 80053; 71045; 99285; J0612; J0360; J7613; J1171 ×2; J2405; J0690; P9016